=== PATIENT | female | born 1990 | race Hispanic/Latino ===

== ENCOUNTER 2016-12-10 15:51 | Emergency (ER) | payer OTHER ==
[~2016-12-10] VITALS: Ht 162.6 cm; Wt 71.2 kg
[~2016-12-10 15:51] MED LIST: CEFP250T2 PO; CEPH-507 PO; DOCU100C37 PO; FAMO20TA5 PO; FERR-74 PO; HYDR-3812 PO; IBUP-1773 PO; ONDA-42 SL; PREN-93 PO
--- OUTSIDE RECORDS SUMMARY | 2016-12-10 15:58 | XMS REPORT | Continuity of Care Document ---
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 Name Role Phone ROXANE LICEA APRN PCP Insurance Providers Payer Name Policy Number Subscriber Name Relationship Self Pay Bob Coughlin 18 Self / Same As Patient Advance Directives Directive Response Recorded Date/Time Advance Directives No 02/20/15 2:24am Resuscitation Status Full Code 02/20/15 2:24am Problems Medical Problems Problem Onset Date Status Urinary tract infection Unknown Active Unknown Active Nausea and vomiting Unknown Active Vomiting Unknown Active Medications Medication Dose Route Sig Days/Qty Instructions Order Date Discontinued Date Status Ondansetron Hcl 4 Mg SL EVERY 6 HOURS PRN NAUSEA/VOMITING 10 Qty FOR NAUSEA AND VOMITING 02/20/15 Active Famotidine (Pepcid) 1 Each PO TWICE A DAY PRN STOMACH UPSET 30 Qty Active Cefprozil 1 Tab PO TWICE A DAY 20 Qty 02/20/15 Active Social History Social History Problem Response Recorded Date/Time Alcohol Use Denies Use 02/20/2015 2:24am Recreational Drug Use No 02/20/2015 2:24am Recent Foreign Travel No 02/20/2015 2:09am Recent Infectious Disease Exposure No 02/20/2015 2:09am Smoking Status Never a Smoker 02/20/2015 2:24am Query Response Start Date Stop Date Smoking Status Never a Smoker Hospital Discharge Instructions No hospital discharge instructions. Plan of Care No plan of care. Functional Status No functional status results. Allergies, Adverse Reactions, Alerts Allergen Type Severity Reaction Status Last Updated No Known Drug Allergies Active 02/20/15 Immunizations No immunization records. Vital Signs Acute Vital Signs Vital Response Date/Time Temperature (Fahrenheit) 97.2 degrees F (97.6 - 99.5) Temperature (Calculated Celsius) 36.70796 degrees C (36.4 - 37.5) Temperature Source Temporal Pulse Rate (adult) 67 bpm (60 - 90) Respiratory Rate 18 bpm (12 - 24) O2 Sat by Pulse Oximetry 99 % (88 - 100) Blood Pressure 91/55 mm Hg Blood Pressure 96/68 mm Hg Blood Pressure 95/61 mm Hg Pain Pain Intensity 4 Height (Feet) 5 feet Height (Inches) 1 inches Height (Calculated Centimeters) 154.598440 cm Weight (Pounds) 136 pounds Weight (Calculated Kilograms) 61.578520 kilograms Calculated BMI 25.69 Results Laboratory Results Test Name Result Units Flags Reference Collection Date/Time Result Date/ Time Comments White Blood Count 6.6 10^3/uL 4.3-11.0 02/20/2015 2:02/20/2015 2: 53am Red Blood Count 3.72 10^6/uL L 4.35-5.85 02/20/2015 2:02/20/2015 2: 53am Hemoglobin 12.1 G/DL 11.5-16.0 02/20/2015 2:02/20/2015 2:53am Hematocrit 35 % 35-52 02/20/2015 2:02/20/2015 2:53am Mean Corpuscular Volume 95 FL 80-99 02/20/2015 2:02/20/2015 2: 53am Mean Corpuscular Hemoglobin 33 PG 25-34 02/20/2015 2:02/20/2015 2: 53am Mean Corpuscular Hemoglobin Concent 34 G/DL 32-36 02/20/2015 2: 2:53am Red Cell Distribution Width 13.4 % 10.0-14.5 02/20/2015 2:2014 2:53am Platelet Count 100 10^3/uL L 130-400 02/20/2015 2:02/20/2015 2:53am Mean Platelet Volume 13.4 FL H 7.4-10.4 02/20/2015 2:02/20/2015 2: 53am Neutrophils (%) (Auto) 71 % 42-75 02/20/2015 2:02/20/2015 2:53am Lymphocytes (%) (Auto) 16 % 12-44 02/20/2015 2:02/20/2015 2:53am Monocytes (%) (Auto) 8 % 0-12 02/20/2015 2:02/20/2015 2:53am Eosinophils (%) (Auto) 5 % 0-10 02/20/2015 2:02/20/2015 2:53am Basophils (%) (Auto) 1 % 0-10 02/20/2015 2:02/20/2015 2:53am Neutrophils # (Auto) 4.7 X 10^3 1.8-7.8 02/20/2015 2:02/20/2015 2: 53am Lymphocytes # (Auto) 1.1 X 10^3 1.0-4.0 02/20/2015 2:02/20/2015 2: 53am Monocytes # (Auto) 0.5 X 10^3 0.0-1.0 02/20/2015 2:02/20/2015 2: 53am Eosinophils # (Auto) 0.4 10^3/uL H 0.0-0.3 02/20/2015 2:02/20/2015 2 :53am Basophils # (Auto) 0.0 10^3/uL 0.0-0.1 02/20/2015 2:02/20/2015 2: 53am Urine Color JACKIE * 02/20/2015 2:02/20/2015 2:59am Urine Clarity VERY CLOUDY * 02/20/2015 2:02/20/2015 2:59am Urine pH 6 5-9 02/20/2015 2:02/20/2015 2:59am Urine Specific [place] 1.025 * 1.016-1.022 02/20/2015 2:2014 2:59am Urine Protein 3+ * NEGATIVE 02/20/2015 2:02/20/2015 2:59am Urine Glucose (UA) NEGATIVE NEGATIVE 02/20/2015 2:02/20/2015 2: 59am Urine RBC (Auto) 2+ * NEGATIVE 02/20/2015 2:02/20/2015 2:59am Urine Ketones 1+ * NEGATIVE 02/20/2015 2:02/20/2015 2:59am Urine Nitrite POSITIVE * NEGATIVE 02/20/2015 2:02/20/2015 2:59am Urine Bilirubin 2+ * NEGATIVE 02/20/2015 2:02/20/2015 2:59am Urine Urobilinogen 8 MG/DL * NORMAL 02/20/2015 2:02/20/2015 2:59am Urine Leukocyte Esterase 3+ * NEGATIVE 02/20/2015 2:02/20/2015 2: 59am Urine RBC 5-10 /HPF * 02/20/2015 2:02/20/2015 2:59am Urine WBC 10-25 /HPF * 02/20/2015 2:02/20/2015 2:59am Urine Bacteria MODERATE /HPF * 02/20/2015 2:02/20/2015 2:59am Urine Squamous Epithelial Cells 10-25 /HPF * 02/20/2015 2:2014 2:59am Urine Crystals NONE /LPF 02/20/2015 2:02/20/2015 2:59am Urine Casts NONE /LPF 02/20/2015 2:02/20/2015 2:59am Urine Mucus NEGATIVE /LPF 02/20/2015 2:02/20/2015 2:59am Urine Culture Indicated YES 02/20/2015 2:02/20/2015 2:59am Sodium Level 137 MMOL/L 135-145 02/20/2015 2:02/20/2015 3:06am Potassium Level 3.4 MMOL/L L 3.6-5.0 02/20/2015 2:02/20/2015 3:06am Chloride Level 106 MMOL/L 98-107 02/20/2015 2:02/20/2015 3:06am Carbon Dioxide Level 21 MMOL/L 21-32 02/20/2015 2:02/20/2015 3: 06am Blood Urea Nitrogen 8 MG/DL 7-18 02/20/2015 2:02/20/2015 3:06am Creatinine 0.62 MG/DL 0.60-1.30 02/20/2015 2:02/20/2015 3:06am BUN/Creatinine Ratio 13 02/20/2015 2:02/20/2015 3:06am Estimat Glomerular Filtration Rate > 60 02/20/2015 2:2014 3:06am GFR INTERPRETIVE DATA UNITS FOR ESTIMATED GFR (eGFR): mL/min/1.73 M2 REFERENCE RANGE FOR ESTIMATED GFR (eGFR) eGFR NORMAL eGFR >60 MODERATELY DECREASED eGFR 30-59 SEVERLY DECREASED eGFR 15-29 KIDNEY FAILURE <15 (OR DIALYSIS) Glucose Level 96 MG/DL 70-105 02/20/2015 2:02/20/2015 3:06am Calcium Level 9.3 MG/DL 8.5-10.1 02/20/2015 2:02/20/2015 3:06am Total Bilirubin 0.4 MG/DL 0.1-1.0 02/20/2015 2:02/20/2015 3:06am Alkaline Phosphatase 57 U/L 40-136 02/20/2015 2:02/20/2015 3:06am Aspartate Amino Transf (AST/SGOT) 17 U/L 5-34 02/20/2015 2:2014 3:06am Alanine Aminotransferase (ALT/SGPT) 10 U/L 0-55 02/20/2015 2:02/20 3:06am Total Protein 7.4 G/DL 6.4-8.2 02/20/2015 2:02/20/2015 3:06am Albumin 3.7 G/DL 3.2-4.5 02/20/2015 2:02/20/2015 3:06am Procedures No known history of procedures. Encounters Encounter Location Date/Time Departed Emergency Room Via [facility] 02/20/15 1:52am Recent Diagnosis
[2016-12-10] MEDS ORDERED: NS IV 1000 ML 1,000 ML IV ONE (16:09)
[2016-12-10] MEDS ORDERED: KETOROLAC 30 MG/ML VIAL IVP STA (16:25)
[2016-12-10 16:28] LABS: BASOPHILS % (AUTO) 0 % (0-10); EOSINOPHILS # (AUTO) 0.4 10^3/uL (0.0-0.3); EOSINOPHILS % (AUTO) 6 % (0-10); LYMPHOCYTES # (AUTO) 1.2 X 10^3 (1.0-4.0); LYMPHOCYTES % (AUTO) 18 % (12-44); MEAN CORPUSCULAR HEMOGLOBIN 30 PG (25-34); MEAN CORPUSCULAR HGB CONC 33 G/DL (32-36); MEAN CORPUSCULAR VOLUME 91 FL (80-99); MEAN PLATELET VOLUME 13.5 FL (7.4-10.4); MONOCYTES # (AUTO) 0.5 X 10^3 (0.0-1.0); MONOCYTES % (AUTO) 7 % (0-12); NEUTROPHILS # (AUTO) 4.3 X 10^3 (1.8-7.8); NEUTROPHILS % (AUTO) 68 % (42-75); PLATELET COUNT 91 10^3/uL (130-400); RED BLOOD COUNT 4.16 10^6/uL (4.35-5.85); RED CELL DISTRIBUTION WIDTH 14.6 % (10.0-14.5); WHITE BLOOD COUNT 6.4 10^3/uL (4.3-11.0)
--- NOTE | 2016-12-10 16:32 | ED General ---
General Chief Complaint: Abdominal/GI Problems Stated Complaint: C SECTION SITE PAIN, FEVER Nursing Triage Note: PT TO ED 6 W/ C/O PAIN AT INCISION SITE, 5 WKS POST OP C SECTION. ALSO C/O ELEVATED TEMP. NO OTHER C/O VOICED Nursing Sepsis Screen: No Definite Risk Source of Information: Patient Exam Limitations: Language Barrier History of Present Illness Time Seen by Provider: 16:15 Initial Comments Here with report of fever and lower abdominal pain as well as bilateral flank pain. This is been going on for a couple days but getting worse. She is 5 weeks postop . Complains of foul-smelling drainage from the right side of her site. Denies dysuria or problems with bowel movements. Has mild cough but no breathing problems. Timing/Duration: 1-2 Days Severity: Moderate Associated Systoms: Cough Fever/ChillsNo Nausea/Vomiting, No Shortness of Air , No Weakness Allergies and Home Medications Allergies Coded Allergies: No Known Drug Allergies (Unverified , 10/27/16) Constitutional: see HPI chills fever EENTM: no symptoms reported Respiratory: coughNo short of breath Cardiovascular: no symptoms reported Gastrointestinal: see HPI abdominal pain (RLQ)No nausea, No vomiting Musculoskeletal: no symptoms reported Skin: see HPI other ( incision with drainage) Psychiatric/Neurological: No Symptoms Reported All Other Systems Reviewed Negative Unless Noted: Yes Past Kjnjpvy-Ncaict-Xpomwm Hx Patient Social History Alcohol Use: Denies Use Recreational Drug Use: No Smoking Status: Never a Smoker Recent Foreign Travel: No Contact w/Someone Who Travel: No Recent Infectious Disease Expo: No Recent Hopitalizations: Yes (CSECTION X5 WKS AGO) Physical Abuse Screen: No Sexual Abuse: No Seasonal Allergies Seasonal Allergies: No Surgeries HX Surgeries: Yes Surgeries: Section Respiratory Hx Respiratory Disorders: No Cardiovascular Hx Cardiac Disorders: No Neurological Hx Neurological Disorders: No Reproductive System Hx Reproductive Disorders: No Sexually Transmitted Disease: No HIV/AIDS: No Genitourinary Hx Genitourinary Disorders: No Gastrointestinal Hx Gastrointestinal Disorders: No Musculoskeletal Hx Musculoskeletal Disorders: No Endocrine Hx Endocrine Disorders: No HEENT HX ENT Disorders: No Loss of Vision: Denies Hearing Impairment: Denies Cancer Hx Cancer: No Psychosocial Hx Psychiatric Problems: No Integumentary HX Skin/Integumentary Disorder: No Blood Transfusions Hx Blood Disorders: Yes (LOW PLATELETS) Adverse Reaction to a Blood Tr: No Reviewed Nursing Assessment Reviewed/Agree w Nursing PMH: Yes Family Medical History Significant Family History: No Pertinent Family Hx Family Medial History: Patient reports no known family medical history. Physical Exam-Suspected Sepsis Physical Exam Vital Signs Vital Sign - Last 12Hours 12/10/16 15:58 Temp 102.4 Pulse 88 Resp 20 B/P 120/72 Pulse Ox 99 O2 Delivery Room Air Capillary Refill : Less Than 3 Seconds Blood Pressure Mean: 88 General Appearance: No Apparent Distress WD/WN HEENT: PERRL/EOMI Pharynx Normal Neck: Non Tender Supple (well a she her total bili not sufficient and is) Respiratory: Lungs Clear Normal Breath Sounds Cardiovascular: Regular Rate, Rhythm No Murmur Gastrointestinal: Non Tender Soft Back: Normal Inspection No CVA Tenderness No Vertebral Tenderness Extremity: Normal Capillary Refill Normal Range of Motion Non Tender No Calf Tenderness Neurologic/Psychiatric: Alert Oriented x3 Skin: normal colorNo rash, other ( incision to the low abdomen has 1 cm area of slight dehiscence without significant drainage. No significant surrounding erythema. Mild tenderness to palpation around that site.) Progress/Results/Core Measures Suspected Sepsis Recent Fever Within 48 Hours: Yes Infection Criteria Present: None New/Unexplained Altered Menta: No Sepsis Screen: No Definite Risk Sepsis Diagnosis: SIRS Temperature:102.4 Pulse: 88 Respiratory Rate: 20 Laboratory Tests 12/10/16 16:16: White Blood Count 6.4 Blood Pressure 120 /72 Mean: 88 Laboratory Tests 12/10/16 16:16: Creatinine 0.70, INR Comment 1.1, Platelet Count 91L, Total Bilirubin 0.4 Results/Orders Lab Results Laboratory Tests Test 12/10/16 16:16 12/10/16 17:29 Range/Units Activated Partial Thromboplast Time 34 24-35 SEC Alanine Aminotransferase (ALT/SGPT) 38 0-55 U/L Albumin 4.1 3.2-4.5 G/DL Alkaline Phosphatase 104 40-136 U/L Anion Gap 11 5-14 MMOL/L Aspartate Amino Transf (AST/SGOT) 39 H 5-34 U/L BUN/Creatinine Ratio 17 Basophils # (Auto) 0.0 0.0-0.1 10^3/uL Basophils (%) (Auto) 0 0-10 % Blood Urea Nitrogen 12 7-18 MG/DL Calcium Level 8.4 L 8.5-10.1 MG/DL Carbon Dioxide Level 21 21-32 MMOL/L Chloride Level 106 98-107 MMOL/L Creatinine 0.70 0.60-1.30 MG/DL Eosinophils # (Auto) 0.4 H 0.0-0.3 10^3/uL Eosinophils (%) (Auto) 6 0-10 % Estimat Glomerular Filtration Rate > 60 Glucose Level 99 70-105 MG/DL Hematocrit 38 35-52 % Hemoglobin 12.3 11.5-16.0 G/DL INR Comment 1.1 0.8-1.4 Lactic Acid Level 1.0 0.5-2.0 MMOL/L Lymphocytes # (Auto) 1.2 1.0-4.0 X 10^3 Lymphocytes (%) (Auto) 18 12-44 % Mean Corpuscular Hemoglobin 30 25-34 PG Mean Corpuscular Hemoglobin Concent 33 32-36 G/DL Mean Corpuscular Volume 91 80-99 FL Mean Platelet Volume 13.5 H 7.4-10.4 FL Monocytes # (Auto) 0.5 0.0-1.0 X 10^3 Monocytes (%) (Auto) 7 0-12 % Neutrophils # (Auto) 4.3 1.8-7.8 X 10^3 Neutrophils (%) (Auto) 68 42-75 % Platelet Count 91 L 130-400 10^3/uL Potassium Level 3.5 L 3.6-5.0 MMOL/L Prothrombin Time 13.8 12.2-14.7 SEC Red Blood Count 4.16 L 4.35-5.85 10^6/uL Red Cell Distribution Width 14.6 H 10.0-14.5 % Sodium Level 138 135-145 MMOL/L Total Bilirubin 0.4 0.1-1.0 MG/DL Total Protein 7.1 6.4-8.2 G/DL White Blood Count 6.4 4.3-11.0 10^3/uL Urine Bacteria NONE /HPF Urine Bilirubin NEGATIVE NEGATIVE Urine Casts NONE /LPF Urine Clarity SLIGHTLY CLOUDY Urine Color YELLOW Urine Crystals NONE /LPF Urine Culture Indicated NO Urine Glucose (UA) NEGATIVE NEGATIVE Urine Ketones NEGATIVE NEGATIVE Urine Leukocyte Esterase 1+ H NEGATIVE Urine Mucus NEGATIVE /LPF Urine Nitrite NEGATIVE NEGATIVE Urine Protein NEGATIVE NEGATIVE Urine RBC RARE /HPF Urine RBC (Auto) NEGATIVE NEGATIVE Urine Specific [place] 1.010 L 1.016-1.022 Urine Squamous Epithelial Cells 2-5 /HPF Urine Urobilinogen NORMAL NORMAL MG/DL Urine WBC 2-5 /HPF Urine pH 6 5-9 Micro Results Microbiology 12/10/16 Influenza Types A,B Antigen (JOSIE) - Final, Complete My Orders Orders-STEWART LANEIR MD Cbc With Automated Diff (12/10/16 16:09) Comprehensive Metabolic Panel (12/10/16 16:09) Lactic Acid Analyzer (12/10/16 16:09) Blood Culture (12/10/16 16:09) Sputum Culture (12/10/16 16:09) Ua Culture If Indicated (12/10/16 16:09) Protime With Inr (12/10/16 16:09) Partial Thromboplastin Time (12/10/16 16:09) Saline Lock/Iv-Start (12/10/16 16:09) Vital Signs Adult Sepsis Patie Q1HR (12/10/16 16:09) Ns Iv 1000 Ml (Sodium Chloride 0.9%) (12/10/16 16:09) Ct Abd/Pelv W (Appendicitis) (12/10/16 16:25) Chest Pa/Lat (2 View) (12/10/16 16:25) Ketorolac Injection (Toradol Injection) (12/10/16 16:25) Iohexol Injection (Omnipaque 350 Mg/Ml 1 (12/10/16 16:45) Ns (Ivpb) (Sodium Chloride 0.9% Ivpb Bag (12/10/16 16:45) Sodium Chloride Flush (Catheter Flush Sy (12/10/16 16:45) Influenza A And B Antigens (12/10/16 17:17) Wound Culture (12/10/16 18:12) Ceftriaxone Injection (Rocephin Injectio (12/10/16 18:45) Ceftriaxone Injection (Rocephin Injectio (12/10/16 18:27) Normal Saline (Figueroa Mini) (Ns (Figueroa (12/10/16 18:27) Medications Given in ED Current Medications Medications Dose Ordered Sig/Chaya Route Start Time Stop Time Status Last Admin Dose Admin Ceftriaxone Sodium/Sodium Chloride 50 ml @ 100 mls/hr ONCE ONCE IV 12/10/16 18:45 12/10/16 19:14 12/10/16 18:36 100 MLS/HR Iohexol 100 ml ONCE ONCE IV 12/10/16 16:45 12/10/16 16:46 DC 12/10/16 16:51 100 ML Sodium Chloride 1,000 ml @ 0 mls/hr Q0M ONCE IV 12/10/16 16:09 12/10/16 16:12 DC 12/10/16 16:36 1,000 MLS/HR Sodium Chloride 100 ml 100 ml ONCE ONCE IV 12/10/16 16:45 12/10/16 16:46 DC 12/10/16 16:51 80 ML Vital Signs/I&O Vital Sign - Last 12Hours 12/10/16 15:58 Temp 102.4 Pulse 88 Resp 20 B/P 120/72 Pulse Ox 99 O2 Delivery Room Air Capillary Refill : Less Than 3 Seconds Blood Pressure Mean: 88 Progress Note : Progress Note Seen and evaluated. IV, labs, UA, chest x-ray, CT abdomen and pelvis ordered. Toradol 30 mg IV. Monitor patient. Normal saline 1 L bolus. Improved after Toradol. All labs reviewed as well as CT results. No significant findings or indications of significant infection. No abdominal abscess or concerns for appendicitis. I did discuss the case with Dr. Bar, on-call for OB as patient had by Dr. Barrios. We did culture the wound although it is minimally open. She is recommending oral antibiotics and follow-up with Dr. Barrios earlier this week as well as continue follow-up at [facility] at the 6 week eamon. We will give Rocephin 1 g IV here and continue outpatient therapy with Keflex. All findings and concerns were discussed with the patient. Discharged home with return precautions. Patient verbalize understanding instructions and agreement with plan. Diagnostic Imaging Diagonstic Imaging: Xray Plain Films/CT/US/NM/MRI: chest Comments VIA [facility]. [place], [place] NAME: [facility] REC#: [id number] PT STATUS: REG ER : 1990 PHYSICIAN: STEWART LANIER MD ADMIT DATE: 12/10/16/ER Signed Date of Exam:12/10/16 CHEST PA/LAT (2 VIEW) INDICATION: Abdominal pain. Back pain. Had baby one month ago. FINDINGS: Examination of the chest in the PA and lateral projections fails to reveal evidence of active parenchymal pathology or pleural effusion. The cardiac silhouette is normal. No bony abnormalities are demonstrated. No pneumothorax. IMPRESSION: Negative chest. Dictated by: Dictated on workstation # [id number] Dict: 12/10/16 1657 Trans: 12/10/16 1709 [id number] Interpreted by: EDWIN RUIZ MD Electronically signed by: EDWIN RUIZ MD 12/10/16 5285 Diagonstic Imaging: CT Plain Films/CT/US/NM/MRI: abdomen, pelvis Comments VIA [facility]. [place], [place] NAME: [facility] REC#: [id number] PT STATUS: REG ER : 1990 PHYSICIAN: STEWART LANIER MD ADMIT DATE: 12/10/16/ER Signed Date of Exam:12/10/16 CT ABD/PELV W (APPENDICITIS) PROCEDURE: CT abdomen and pelvis with contrast, rule out appendicitis. TECHNIQUE: Multiple contiguous axial images were obtained through the abdomen and pelvis after the administration of intravenous contrast. INDICATION: one month ago. Patient states the draining with odor along the incision site. FINDINGS: Lung bases are clear. Liver appears normal. Gallbladder is contracted. Bile ducts are not dilated. Pancreas and spleen are normal. Adrenal glands and kidneys appear normal. The abdominal vessels enhance in a normal fashion and appear normal. The abdominal organs show normal enhancement. Stomach and small bowel show normal pattern. Colon shows normal stool and gas pattern. Uterus is mildly enlarged consistent with recent . Low transverse Pfannenstiel incision scar is noted. No evidence of seromas or hematomas. No loculated fluid collection seen in the abdomen or in the subcutaneous tissues to suggest abscess. No adenopathy of pathologic size. The rectus muscle appears intact with no defect. IMPRESSION: 1. Low transverse pelvic incision noted scar present though no fluid collections. Rectus muscle intact. 2. No intra-abdominal fluid collection. No adenopathy is present. Dictated by: Dictated on workstation # [id number] Dict: 12/10/16 172 Trans: 12/10/[address] [facility] [id number] Interpreted by: EDWIN RUIZ MD Electronically signed by: EDWIN RUIZ MD 12/10/16 174 Departure Impression Impression: Primary Impression: Fever Qualified Code: R50.9 - Fever, unspecified Additional Impression: Postoperative pain Disposition: HOME, SELF-CARE Condition: Improved Departure-Patient Inst. Decision time for Depature: 18:42 Referrals: ISSA HOLLINS MD (PCP/Family) Primary Care Physician Patient Instructions: Fever, Adult (DC), Postoperative Pain (DC) Add. Discharge Instructions: All discharge instructions reviewed with patient and/or family. Voiced understanding. Take medications as directed. Drink plenty of fluids. Follow-up with Dr. Barrios this week. Call his office Monday morning for appointment this week. Also follow-up with [facility] for your six-week checkup. Return for worse pain, fever, vomiting, weakness, vaginal bleeding or discharge, breathing problems or other concerns as needed. Scripts Cephalexin 500 Mg [id number] Mg PO QID #28 TAB Ref 0 Prov:STEWART LANIER MD 12/10/16 Copy Copies To 1: EMMANUEL BARRIOS DO Copies To 2: ISSA HOLLINS MD, TIMOTHY D MD Dec 10, 2016 16:32
[2016-12-10 16:35] LABS: INR 1.1 (0.8-1.4); PROTHROMBIN TIME PATIENT 13.8 SEC (12.2-14.7)
[2016-12-10 16:45] LABS: ALANINE AMINOTRANSFERASE 38 U/L (0-55); ALBUMIN 4.1 G/DL (3.2-4.5); ANION GAP 11 MMOL/L (5-14); ASPARTATE AMINO TRANSFERASE 39 U/L (5-34); BILIRUBIN,TOTAL 0.4 MG/DL (0.1-1.0); BLOOD UREA NITROGEN 12 MG/DL (7-18); BUN/CREATININE RATIO 17; CALCIUM 8.4 MG/DL (8.5-10.1); CARBON DIOXIDE 21 MMOL/L (21-32); CHLORIDE 106 MMOL/L (98-107); GFR ESTIMATED > 60; GLUCOSE 99 MG/DL (70-105); POTASSIUM 3.5 MMOL/L (3.6-5.0); SODIUM 138 MMOL/L (135-145); TOTAL PROTEIN 7.1 G/DL (6.4-8.2)
[2016-12-10] MEDS ORDERED: CATHETER FLUSH 10 ML SYR IV PRN (16:45)
[2016-12-10] MEDS ORDERED: IOHEXOL 350 MG/ML 100 ML (OMNIPAQUE 350) VIAL IV ONE (16:45)
[2016-12-10] MEDS ORDERED: NS 100 ML (IVPB) BAG IV ONE (16:45)
--- NOTE | 2016-12-10 17:04 | Diagnostic Imaging Report ---
INDICATION: Abdominal pain. Back pain. Had baby one month ago. FINDINGS: Examination of the chest in the PA and lateral projections fails to reveal evidence of active parenchymal pathology or pleural effusion. The cardiac silhouette is normal. No bony abnormalities are demonstrated. No pneumothorax. IMPRESSION: Negative chest. Dictated by: Dictated on workstation # [id number]
[2016-12-10 17:38] LABS: BILIRUBIN,URINE NEGATIVE (NEGATIVE); KETONES,URINE NEGATIVE (NEGATIVE); LEUKOCYTE ESTERASE ,URINE 1+ (NEGATIVE); NITRITE,URINE NEGATIVE (NEGATIVE); PH,URINE 6 (5-9); PROTEIN,URINE NEGATIVE (NEGATIVE); UROBILINOGEN,URINE NORMAL (NORMAL)
--- NOTE | 2016-12-10 17:44 | Diagnostic Imaging Report ---
PROCEDURE: CT abdomen and pelvis with contrast, rule out appendicitis. TECHNIQUE: Multiple contiguous axial images were obtained through the abdomen and pelvis after the administration of intravenous contrast. INDICATION: one month ago. Patient states the draining with odor along the incision site. FINDINGS: Lung bases are clear. Liver appears normal. Gallbladder is contracted. Bile ducts are not dilated. Pancreas and spleen are normal. Adrenal glands and kidneys appear normal. The abdominal vessels enhance in a normal fashion and appear normal. The abdominal organs show normal enhancement. Stomach and small bowel show normal pattern. Colon shows normal stool and gas pattern. Uterus is mildly enlarged consistent with recent . Low transverse Pfannenstiel incision scar is noted. No evidence of seromas or hematomas. No loculated fluid collection seen in the abdomen or in the subcutaneous tissues to suggest abscess. No adenopathy of pathologic size. The rectus muscle appears intact with no defect. IMPRESSION: 1. Low transverse pelvic incision noted scar present though no fluid collections. Rectus muscle intact. 2. No intra-abdominal fluid collection. No adenopathy is present. Dictated by: Dictated on workstation # [id number]
[2016-12-10] MEDS ORDERED: cefTRIAXone 1 GM (ROCEPHIN) VIAL ONE (18:27)
[2016-12-10] MEDS ORDERED: NORMAL SALINE (BAXTER MINI) 50 ML IV ONE (18:27)
[2016-12-10] MEDS ORDERED: CEPH500T PO (18:45)
[2016-12-10] MEDS ORDERED: cefTRIAXone INJECTION 1,000 MG in NORMAL SALINE (BAXTER MINI) 50 ML IV ONE (18:45)
[2016-12-10 19:15] VITALS: BP 109/68
== END 2016-12-10 19:15 | disposition home or self-care (01) ==
LOC: EDUNIT# 15:51 → ER 15:54
DX: G89.18 Other acute postprocedural pain (principal); R50.9 Fever, unspecified
CPT/HCPCS: 36415; 71020; 74177; 80053; 81000; 83605; 85025; 85610; 85730; 87040; 87070; 87077; 87186; 87205; 87804; 96365; 96375

== ENCOUNTER 2017-10-21 22:17 | Emergency (ER) | payer SELFPAY ==
[~2017-10-21] VITALS: Ht 162.6 cm; Wt 71.2 kg
[~2017-10-21 22:17] MED LIST changes: +CEPH500T PO
[2017-10-21] MEDS ORDERED: cefTRIAXone 1 GM (ROCEPHIN) VIAL ONE (23:47)
[2017-10-21] MEDS ORDERED: KETOROLAC 60 MG/2 ML VIAL IM ONE (23:47)
[2017-10-21] MEDS ORDERED: LIDOCAINE 1% INJ 20 ML (XYLOCAINE) VIAL ONE (23:47)
--- NOTE | 2017-10-21 23:47 | ED Headache ---
General Chief Complaint: Head/Cervical Problems Stated Complaint: HEADACHE Nursing Triage Note: C/O lam for the last 2-3 weeks, cont the last week. Has had fluid in ears, no fever. Nauseated, and tylenol and advil are not working. clear drainage with occ. blood clot . 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 Exam Limitations: language barrier (PT SPEAKS NO NAURUAN) History of Present Illness Time seen by provider: 22:34 Initial Comments C/O HEADACHE FOR A MONTH PAIN IS THERE NEARLY ALL THE TIME HEADACHE IS MOSTLY IN FOREHEAD AREA OCCASIONAL CLEAR NASAL DRAINAGE AND HAD A SMALL BLOOD CLOT FROM NOSE ONCE --A WEEK OR TWO AGO NO FEVER ALSO STATES SHE HAS A "BALL" ON THE ROOF OF HER MOUTH AND IF SHE PUSHES ON IT, IT CAUSES SEVERE PAIN IN HER HEAD PT ALSO STATES SHE DEVELOPED A "STAIN" ON HER LEFT FOREHEAD THE SAME TIME HER HEADACHE STARTED AND IT IS TENDER TO TOUCH HAS NOT SOUGHT CARE UNTIL TODAY SYMPTOMS NO DIFFERENT TODAY NO RELIEF WITH TYLENOL AND IBUPROFEN [facility] Allergies and Home Medications Allergies Coded Allergies: No Known Drug Allergies (Unverified , 10/27/16) Home Medications Amoxicillin/Potassium Clav 1 Each Tablet, 1 EACH PO BID, #30 Prescribed by: MULU CHAVEZ on 10/21/172349 Fluticasone Propionate 9.9 Ml [place].susp, 2 SPRAYS NS BID, #1 Prescribed by: MULU CHAVEZ on 10/21/172349 Loratadine/Pseudoephedrine 1 Each Tab.er.12h, 1 EACH PO BID, #30 Prescribed by: MULU CHAVEZ on 10/21/17 235 Methylprednisolone 4 Mg Tab.ds.pk, 4 MG PO UD, #1 Prescribed by: MULU CHAVEZ on 10/21/170 Constitutional: no symptoms reported Eyes: No Symptoms Reported Ears, Nose, Mouth, Throat: see HPI Respiratory: no symptoms reported Cardiovascular: no symptoms reported Gastrointestinal: no symptoms reported Genitourinary: no symptoms reported : No LMP: Oct 13, 2017 (NORMAL. NO CONTROL) Musculoskeletal: no symptoms reported Skin: see HPI Psychiatric/Neurological: See HPI, Headache, Denies Numbness, Denies Paresthesia, Denies Seizure, Denies Tingling, Denies Tremors, Denies Weakness Past Vuqaaly-Xzohpb-Perrhs Hx Patient Social History Alcohol Use: Denies Use Recreational Drug Use: No Smoking Status: Never a Smoker Recent Foreign Travel: No Contact w/Someone Who Travel: No Recent Infectious Disease Expo: No Recent Hopitalizations: No Physical Abuse: No Sexual Abuse: No Mistreated: No Fear: No Immunizations Up To Date Tetanus Booster (TDap): Unknown Seasonal Allergies Seasonal Allergies: No Surgeries History of Surgeries: Yes ( X 3) Surgeries: Section Respiratory History of Respiratory Disorde: No Cardiovascular History of Cardiac Disorders: No Neurological History of Neurological Disord: No Reproductive System Hx Reproductive Disorders: No Sexually Transmitted Disease: No HIV/AIDS: No Gastrointestinal History of Gastrointestinal Di: No Musculoskeletal History of Musculoskeletal Dis: No Endocrine History of Endocrine Disorders: No HEENT History of HEENT Disorders: No Loss of Vision: Denies Hearing Impairment: Denies Cancer History of Cancer: No Psychosocial History of Psychiatric Problem: No Suicide Risk Score: 0 Integumentary History of Skin or Integumenta: No Blood Transfusions History of Blood Disorders: Yes (LOW PLATELETS) Adverse Reaction to a Blood Tr: No Family Medical History Significant Family History: No Pertinent Family Hx Family Medial History: Patient reports no known family medical history. Physical Exam Vital Signs Vital Sign - Last 12Hours 10/21/17 22:30 Temp 97.6 Pulse 62 Resp 18 B/P (MAP) 117/77 Pulse Ox 100 Capillary Refill : Less Than 3 Seconds General Appearance: WD/WN, no apparent distress HEENT: PERRL/EOMI, other (TENDERNESS TO FRONTAL AREA, AND TENDERNESS OVER LEFT FOREHEAD AND OVER WHAT APPEARS TO BE A BIRTHMARK TO LEFT FOREHEAD FROM LEFT MEDIAL BROW TO HAIRLINE. HARD PALATE WITH A MIDLINE SOFT TISSUE MASS-- APPROXIMATELY 1 CM IN DIAMETER, LIGHT YELLOW IN COLOR, TENDER TO PALPATION. ) Neck: non-tender, full range of motion, supple, normal inspection Cardiovascular: regular rate, rhythm, no murmur Respiratory: normal breath sounds, no respiratory distress, no accessory muscle use Gastrointestinal: normal bowel sounds, non tender, soft Back: normal inspection Extremities: normal range of motion, non-tender, normal inspection, no pedal edema, no calf tenderness, normal capillary refill Psychiatric: alert, oriented x 3 Crainal Nerves: normal hearing, normal speech, PERRL Coordination/Gait: normal gait Motor/Sensory: no motor deficit, no sensory deficit, no pronator drift Skin: normal color, warm/dry Progress/Results/Core Measures Results/Orders My Orders Orders - MULU CHAVEZ DO Ct Head/Maxillofacial Wo (10/21/17 22:43) Ketorolac Injection (Toradol Injection) (10/21/17 23:48) Lidocaine 1% Injection (Xylocaine 1% Inj (10/22/17 00:00) Ceftriaxone Injection (Rocephin Injectio (10/22/17 00:00) Ketorolac Injection (Toradol Injection) (10/21/17 23:47) Ceftriaxone Injection (Rocephin Injectio (10/21/17 23:47) Lidocaine 1% Injection (Xylocaine 1% Inj (10/21/17 23:47) Medications Given in ED Current Medications Medications Dose Ordered Sig/Chaya Route Start Time Stop Time Status Last Admin Dose Admin Ceftriaxone Sodium 1,000 mg ONCE ONCE IM 10/22/17 00:00 10/22/17 00:04 DC 10/21/17 23:59 1,000 MG Lidocaine HCl 2.1 ml ONCE ONCE INJ 10/22/17 00:00 10/22/17 00:04 DC 10/21/17 23:58 2.1 ML Vital Signs/I&O Vital Sign - Last 12Hours 10/21/17 10/22/17 22:30 00:03 Temp 97.6 98.6 Pulse 62 72 Resp 18 18 B/P (MAP) 117/77 Pulse Ox 100 99 Blood Pressure Mean: [address] HEAD/MAXILLOFACIALS--MAXILLARY SINUSITIS, WORSE ON RIGHT--PER [facility] VIA FAX @ 2113 Reviewed: Reviewed by Me Departure Impression Impression: Primary Impression: Sinusitis Additional Impression: Sinus headache Disposition: HOME, SELF-CARE Condition: Stable Departure-Patient Inst. Referrals: [facility] (PCP/Family) Primary Care Physician Patient Instructions: Sinusitis, Adult (DC), Sinus Headache (DC) Add. Discharge Instructions: LOTS OF CLEAR LIQUIDS TYLENOL NEEDED FOR PAIN FOLLOW UP WITH [facility] IN 1 WEEK IF NO BETTER All discharge instructions reviewed with patient and/or family. Voiced understanding. Scripts Methylprednisolone (Medrol) 4 Mg Tab.ds.pk 4 MG PO UD, #1 PKG Prov: MULU CHAVEZ DO 10/21/17 Fluticasone Propionate (Flonase Allergy Relief) 9.9 Ml [place].susp 2 SPRAYS NS BID, #1 SPRAY Prov: MULU CHAVEZ DO 10/21/17 Loratadine/Pseudoephedrine (Claritin-D 12 Hour Tablet) 1 Each Tab.er.12h 1 EACH PO BID for Congestion, #30 TAB Prov: MULU CHAVEZ DO 10/21/17 Amoxicillin/Potassium Clav (Augmentin 875-125 Tablet) 1 Each Tablet 1 EACH PO BID for INFECTION, #30 TAB Prov: MULU CHAVEZ DO 10/21/17 MULU CHAVEZ DO Oct 21, 2017 23:47
[2017-10-21] MEDS ORDERED: KETOROLAC 60 MG/2 ML VIAL IM STA (23:48)
[2017-10-21] MEDS ORDERED: FLUT9.9S NS (23:50)
[2017-10-21] MEDS ORDERED: LORA1TAB59 PO (23:50)
[2017-10-21] MEDS ORDERED: AMOX-358 PO (23:50)
[2017-10-21] MEDS ORDERED: METH4TAB PO (23:50)
[2017-10-22] MEDS ORDERED: LIDOCAINE 1% INJ 20 ML (XYLOCAINE) VIAL INJ ONE
[2017-10-22] MEDS ORDERED: cefTRIAXone 1 GM (ROCEPHIN) VIAL IM ONE
[2017-10-22 00:03] VITALS: BP 115/62
--- NOTE | 2017-10-22 06:37 | Diagnostic Imaging Report ---
PROCEDURE: CT head and maxillofacial without contrast. TECHNIQUE: Multiple contiguous axial images were obtained through the head and facial bones without the use of intravenous contrast. INDICATION: Headache. COMPARISON: None FINDINGS: No acute intracranial hemorrhage, mass effect or edema is seen. Rondon-white junction is preserved. Ventricles appear normal. No focal abnormality is demonstrated. Maxillofacial CT: There is evqp-nd-pewdwttm mucosal thickening in the maxillary sinuses bilaterally slightly more prominent on the right. No air-fluid levels are seen. Ethmoid, frontal and sphenoid sinuses appear clear. No osseous destructive process or fracture is seen. Nasal septum appears midline. There is some congestion of the ostiomeatal units which appear patent. IMPRESSION: 1. Thee-hl-vbczoktn bilateral maxillary sinusitis, worse on the right. No air-fluid levels are seen. 2. No evidence of an acute intracranial abnormality. Agree with [facility] interpretation. Dictated by: Dictated on workstation # [id number]
== END 2017-10-22 00:04 | disposition home or self-care (01) ==
LOC: EDUNIT# 22:17 → ER 22:20
DX: J32.9 Chronic sinusitis, unspecified (principal); R51 Headache; Z87.59 Personal history of other complications of pregnancy, childbirth and the puerperium
CPT/HCPCS: 70450; 70486; 99284

== ENCOUNTER → 2019-01-18 | Outpatient (CLI) | payer OTHER ==
[~2019-01-18] MED LIST changes: +ACHD5005 PO; +AMOX-358 PO; -FERR-74 PO; +FERR325T18 PO; +FLUT9.9S NS; -HYDR-3812 PO; +LORA1TAB59 PO; +METH4TAB PO
--- NOTE | 2019-01-18 12:55 | Diagnostic Imaging Report ---
PROCEDURE: US Non-ob pelvis comp/trans. TECHNIQUE: Multiple realtime grayscale images were obtained of the pelvis in various projections endovaginally. Transabdominal imaging was also performed. INDICATION: Acute pelvic pain. The uterus measures 8.2 x 5.5 x 5.0 cm. Endometrium is approximately 10 mm in thickness. No myometrial mass is identified. The right ovary was not visualized due to overlying bowel gas. Left ovary measures 2.6 x 2.9 x 2.8 cm. Left ovary contains multiple follicles. There is a complex cyst with septations in the left ovary measuring approximately 19 mm. There is blood flow to the left ovary. No free fluid is seen. IMPRESSION: Complex left ovarian cyst. No other significant abnormality is detected. Note is made that the right ovary cannot be visualized due to bowel gas. Dictated by: Dictated on workstation # [id number]
== END ==
LOC: RAD 10:24
PROVIDERS: ATTEND Obstetrics & Gynecology
DX: N83.292 Other ovarian cyst, left side (principal)
CPT/HCPCS: 76830; 76856

== ENCOUNTER 2019-01-29 05:50 | Outpatient (CLI) | payer OTHER ==
[~2019-01-29] VITALS: Ht 162.6 cm; Wt 71.2 kg
== END 2019-01-29 15:22 | disposition home or self-care (01) ==
LOC: PREOP 05:50
PROVIDERS: ATTEND Obstetrics & Gynecology
DX: Z01.818 Encounter for other preprocedural examination (principal)

== ENCOUNTER 2019-01-31 08:55 | Day surgery (SDC) | payer OTHER ==
[~2019-01-31] VITALS: Ht 162.6 cm; Wt 71.2 kg
[2019-01-31] MEDS ORDERED: ceFAZolin INJECTION 1,000 MG in WATER (STERILE) FOR INJECTION 10 ML IV ONE (09:15)
[2019-01-31] MEDS: LACTATED RINGERS 1,000 ML IV PRN ×2 (09:30→12:48)
[2019-01-31 09:31] VITALS: BP 99/72
[2019-01-31 09:50] LABS: BASOPHILS % (AUTO) 1 % (0-10); EOSINOPHILS # (AUTO) 0.8 10^3/uL (0.0-0.3); EOSINOPHILS % (AUTO) 12 % (0-10); HEMATOCRIT 41 % (35-52); HEMOGLOBIN 13.5 G/DL (11.5-16.0); LYMPHOCYTES # (AUTO) 1.7 X 10^3 (1.0-4.0); LYMPHOCYTES % (AUTO) 26 % (12-44); MEAN CORPUSCULAR HEMOGLOBIN 31 PG (25-34); MEAN CORPUSCULAR HGB CONC 33 G/DL (32-36); MEAN CORPUSCULAR VOLUME 93 FL (80-99); MEAN PLATELET VOLUME 12.3 FL (7.4-10.4); MONOCYTES # (AUTO) 0.4 X 10^3 (0.0-1.0); MONOCYTES % (AUTO) 5 % (0-12); NEUTROPHILS # (AUTO) 3.7 X 10^3 (1.8-7.8); NEUTROPHILS % (AUTO) 56 % (42-75); PLATELET COUNT 171 10^3/uL (130-400); RED CELL DISTRIBUTION WIDTH 13.3 % (10.0-14.5); WHITE BLOOD COUNT 6.6 10^3/uL (4.3-11.0)
[2019-01-31] MEDS ORDERED: D5 LR IV SOLUTION 1,000 ML IV SCH (10:06)
--- NOTE | 2019-01-31 10:09 | Discharge Inst-Women's Service ---
Discharge Inst-Women's Serv Depart Medication/Instructions New, Converted or Re-Newed RX: RX Given to Pt/Family Consults/Follow Up Additional Follow Up: Yes Orders/Referrals Dr Barrios in 7-10 days Activity Activity: Activity as Tolerated Driving Instructions: No Driving for 1 Week NO SMOKING: NO SMOKING Nothing Inside Vagina: No Douching, No [place], No Tampons Diet Discharge Diet: No Restrictions Symptoms to Report to : Bleeding Excessive, Pain Increased, Fever Over 101 Degrees F, Pain/Pressure in Jaw, Questions/Concerns For Any Problems or Questions: Contact Your Physician Skin/Wound Care Infection Signs and Symptoms: Increased Redness, Foul Odor of Wound, Increased Drainage, Skin Itchy or Has a Rash, Increased Swelling, Temperature Above 101 F Operative Area Clean and Dry: Keep Incision Clean/Dry Stitches/José Miguel/Dermabond: Dermabond, Care of Stitches Bathing Instructions: EMMANUEL Choe DO Jan 31, 2019 10:09
[2019-01-31] MEDS ORDERED: ACHD5005 PO (10:11)
[2019-01-31] MEDS ORDERED: IBUP-1773 PO (10:11)
[2019-01-31] MEDS ORDERED: DOCU-143 PO (10:11)
[2019-01-31] MEDS ORDERED: ONDANSETRON 4 MG/2 ML (SDV) Z0FRAN IVP PRN ×2 (10:15→13:30)
[2019-01-31] MEDS ORDERED: HYDROcodone/APAP 5 MG/325 MG (LORTAB) TAB PO PRN (10:15)
[2019-01-31] MEDS ORDERED: KETOROLAC 30 MG/ML VIAL IVP ONE (10:15)
--- NOTE | 2019-01-31 10:15 | Progress Note-Pre Operative ---
Pre-Operative Progress Note H&P Reviewed The H&P was reviewed, patient examined and no changes noted. Date Seen by Provider: Jan 31, 2019 Time Seen by Provider: 10:00 Date H&P Reviewed: Jan 31, 2019 Time H&P Reviewed: 10:00 Pre-Operative Diagnosis: CPP, Ovarian cyst EMMANUEL PECK DO Jan 31, 2019 10:15
[2019-01-31] MEDS ORDERED: ceFAZolin INJECTION 1,000 MG ONE (11:27)
[2019-01-31] MEDS ORDERED: WATER (STERILE) FOR INJECTION 10 ML ONE (11:27)
[2019-01-31] MEDS ORDERED: LIDOCAINE PF 2% 5 ML (XYLOCAINE) VIAL ONE (11:43)
[2019-01-31] MEDS ORDERED: PROPOFOL INJECTION 50 ML IV ONE (11:43)
[2019-01-31] MEDS ORDERED: MIDAZOLAM 2 MG/2 ML (VERSED) VIAL ONE (11:43)
[2019-01-31] MEDS ORDERED: BUPIVACAINE 0.25% 30 ML (SENSORCAINE) VIAL ONE (11:43)
[2019-01-31] MEDS ORDERED: ONDANSETRON 4 MG/2 ML (SDV) Z0FRAN ONE (11:43)
[2019-01-31] MEDS ORDERED: DEXAMETHASONE 10 MG/ML (DECADRON) 1 ML VIAL ONE (11:43)
[2019-01-31] MEDS ORDERED: fentaNYL INJECTION 100 MCG/2 ML AMP ONE (11:43)
[2019-01-31] MEDS ORDERED: SEVOFLURANE (ULTANE) 15 ML INHAL SOLN ONE ×2 (11:44→13:08)
[2019-01-31] MEDS ORDERED: ROCURONIUM 10 MG/ML 5 ML SYRINGE IV ONE ×2 (11:49→13:08)
[2019-01-31] MEDS ORDERED: NEOSTIGMINE 1 MG/ML 5 ML SYRINGE ONE (13:06)
[2019-01-31] MEDS ORDERED: GLYCOPYRROLATE 0.2 MG/ML (ROBINUL) 2 ML VIAL ONE (13:06)
[2019-01-31] MEDS ORDERED: KETOROLAC 30 MG/ML VIAL ONE (13:23)
[2019-01-31] MEDS ORDERED: morphine INJ 10 MG/ML 1ML (SYR OR VIAL) ONE (13:23)
[2019-01-31] MEDS ORDERED: morphine INJ 10 MG/ML 1ML (SYR OR VIAL) IVP ONE (13:30)
[2019-01-31 14:15] VITALS: BP 87/61
[2019-01-31 14:45] VITALS: BP 94/55
[2019-01-31 15:15] VITALS: BP 89/58
[2019-01-31 15:40] VITALS: BP 89/58
--- NOTE | 2019-01-31 19:04 | OPERATIVE REPORT ---
DATE OF SERVICE: PREOPERATIVE DIAGNOSES: 1. A 28-year-old chronic pelvic pain. 2. Complex ovarian cyst. POSTOPERATIVE DIAGNOSES: 1. A 28-year-old chronic pelvic pain. 2. Complex ovarian cyst. PROCEDURE: Operative laparoscopy with lysis of adhesions and left ovarian cystotomy. SURGEON: Emmanuel Peck DO ANESTHESIA: General endotracheal. ESTIMATED BLOOD LOSS: Minimal. URINE OUTPUT: 400. FLUIDS: 1200 mL lactated Ringer's solution. SPECIMENS: None. INDICATION FOR PROCEDURE: This 28-year-old female was a consultation to me from the [facility] for ongoing issues with chronic pelvic pain. The patient reports this has been going on and worsening since the of her last child. She denies any change in sexual partner had STD testing, which was negative as well as an ultrasound that appeared negative with the exception of a complex ovarian cyst, which appeared to be a hemorrhagic cyst that was resolving. I discussed with the patient suppressive therapy with the suspicion of underlying endometriosis versus proceeding with diagnostic laparoscopy. Risks of both were discussed with the patient in detail including recovery time frame from surgery and postoperative expectations. After everything was discussed and the patient was well informed, she decided to move forward with laparoscopic surgery. Consent was obtained in the preoperative area after all her questions were answered and the patient was taken to the operating room. OPERATIVE REPORT IN DETAIL: Once in the operating room, general anesthesia was found to be adequate, placed in dorsal lithotomy position, prepped and draped in normal sterile fashion. Timeout was performed. A Edwards catheter was placed using sterile technique. A weighted speculum was inserted to the patient's vagina. A right angle retractor was used to visualize the cervix, which was grasped at 12 o'clock position using a long Allis clamp. I then gently sounded the uterine cavity that was found to be 8 cm. I then placed a Kronner uterine manipulator, a depth of 8 cm of point in the balloon and using that as my uterine manipulation. I removed all the other instruments from the patient's vagina, performed a change of gloves and took my attention to the abdomen where infraumbilically, I infiltrated this area using 0.25% Marcaine and make a 5 mm incision with a knife and directed a Veress needle through the incision until intraperitoneal placement was confirmed using the saline drop test. I then proceeded with insufflation using CO2 gas. Opening pressure of 5 mmHg was noted. I proceeded to maximum pressure of 15 mmHg, at which point I removed the Veress needle and introduced a 5 mm blunt trocar. Once this was in place, I am able to confirm intraperitoneal placement using the laparoscope. There was no evidence of damage upon entry and the patient placed in steep Trendelenburg after a brief scan of the upper abdominal anatomy appears to be grossly normal. Once the Trendelenburg was made to visualize all my findings including a grossly normal uterus with some serosal adhesions of the left side of the broad ligament to the anterior cul-de-sac. There were some filmy adhesions consistent with history of previous section and the vesicouterine peritoneum. These were all taken down using monopolar cautery once the second trocar was placed under direct visualization of the laparoscope. This is a midline suprapubic 5 mm incision and the trocar was placed under direct visualization of the laparoscope. Once it was in place, I continued the scanned the anatomy and there is a complex fluid-filled simple cyst of the left ovary, which is opened up using monopolar cautery allowed to drain. There was no active bleeding noted from that dissection plane or any of the other dissection planes thought I mentioned above, after which the procedure was deemed complete. The patient was taken out of steep Trendelenburg and insufflation was released. A 10 mL of 0.25% Marcaine were introduced in the peritoneal cavity for postoperative pain management. Once the pneumo is released, the trocars were removed. The skin was reapproximated using Dermabond. Edwards catheter was removed as well so as the Kronner uterine manipulator. The patient tolerated the procedure well and was taken to recovery area in stable condition. Lap and sponge counts were correct at the end of the procedure. Instrument counts were correct as well. Job ID: [id number] DocumentID: [id number] Dictated Date: 01/31/2019 13:09:47 Picker Date: 01/31/2019 19:03:17 Dictated By: EMMANUEL PECK DO
== END 2019-01-31 15:40 | disposition home or self-care (01) ==
LOC: SDC 08:55
PROVIDERS: ATTEND Obstetrics & Gynecology
DX: N83.202 Unspecified ovarian cyst, left side (principal); Z11.2 Encounter for screening for other bacterial diseases
CPT/HCPCS: 36415; 84703; 85025; 86850; 86900; 86901; 87081; 94664

== ENCOUNTER 2022-02-22 09:34 | Emergency (ER) | payer SELFPAY ==
[~2022-02-22 09:34] MED LIST changes: +DOCU-143 PO
--- NOTE | 2022-02-22 10:44 | ED Abdominal Pain ---
General Chief Complaint: Abdominal/GI Problems Stated Complaint: LOW ABD PAIN PELVIC PAIN Nursing Triage Note: PT AMBULATORY TO ER WITH VISITOR. PT IS GEORGIAN SPEAKING, REQUESTING THAT VISITOR INTERPRET FOR HER. PT C/O LOWER ABD PAIN X 3 DAYS, REPORTS POSSIBLE FEVER DURING THE NIGHT. +NAUSEA. PT ALSO STATES FEELS LIKE 'HARD BALL COMING OUT OF MY VAGINA' DENIES VAGINAL BLEEDING. Source of Information: Patient, Other (friend from [employer] who is interpreting for her) Exam Limitations: Language Barrier (DREW GARCIA MD) History of Present Illness Date Seen by Provider: Feb 22, 2022 Time Seen by Provider: 10:30 Initial Comments Patient is a 31-year-old female who presents to the emergency department today with a chief complaint of lower abdominal pain and vaginal pain onset for the last 2 or 3 days. She reports fever last evening with nausea. She feels what may be a cyst in her vagina. Pain radiates from the vagina into the upper thighs. She also has low back pain. Last menstrual cycle was in December. She states she is not currently sexually active there is no way she could be . She does have burning with urination. No vomiting. No diarrhea. She has had previous surgery for ovarian cyst on the left. G3, P3. Sees Dr Barrios. No allergies to medications. It seems she was able to purchase some amoxicillin [id number] from somewhere and [place] yesterday and took a dose of 1000 mg last evening. No Tylenol or ibuprofen today. She rates her pain at a "an 8 or 9". Significant pain with moving, standing, sitting. Not sexually active. Not on control. All other review of systems reviewed and negative except as stated. Timing/Duration: 2-3 Days Severity/Quality: Severe Location: Suprapubic Radiation: Other (low back pain and upper thigh pain) Activities at Onset: None Associated Symptoms: Back Pain, Nausea/Vomiting (nausea without vomiting) (DREW GARCIA MD) Allergies and Home Medications Allergies Coded Allergies: No Known Drug Allergies (Unverified , 01/29/19) Patient Home Medication List Home Medication List Reviewed: Yes (DREW GARCIA MD) Hydrocodone/Acetaminophen (Hydrocodone-Acetamin 5-325 mg) 1 Each Tablet, 1 TAB PO Q6H PRN for PAIN-MODERATE (5-7) Prescribed by: IRAIDA TRIVEDI on 02/22/22 1552 Ondansetron (Ondansetron Odt) 4 Mg Tab.rapdis, 4 MG PO Q6H PRN for NAUSEA/VOMITING Prescribed by: IRAIDA TRIVEDI on 02/22/22 1552 Sulfamethoxazole/Trimethoprim (Bactrim Ds Tablet) 1 Each Tablet, 1 EA PO BID WITH MEALS Prescribed by: ELGIN LONG on 02/22/22 1342 Sulfamethoxazole/Trimethoprim (Bactrim Ds Tablet) 1 Each Tablet, 1 EACH PO BID Prescribed by: IRAIDA TRIVEDI on 02/22/22 1542 Last Action: New Order Discontinued Medications Docusate Sodium (Colace) 100 Mg Capsule, 100 MG PO BID Prescribed by: EMMANUEL BARRIOS on 01/31/19 1011 Last Action: Discontinued Hydrocodone Bit/Acetaminophen (Lortab 5 Mg Tablet) 1 Tab Tab, 1 TAB PO Q4H PRN for PAIN-MODERATE Prescribed by: EMMANUEL BARRIOS on 01/31/19 1011 Last Action: Discontinued Hydrocodone/Acetaminophen (Hydrocodone-Acetamin 5-325 mg) 1 Each Tablet, 1 TAB PO Q6H PRN for PAIN-MODERATE (5-7) Prescribed by: DREW GARCIA on 02/22/22 1258 Last Action: Discontinued Ibuprofen (Ibuprofen) 600 Mg Tablet, 600 MG PO Q6H Prescribed by: EMMANUEL BARRIOS on 01/31/19 1011 Last Action: Discontinued Ondansetron (Ondansetron Odt) 4 Mg Tab.rapdis, 4 MG PO Q8H PRN for nausea Prescribed by: DREW GARCIA on 02/22/22 1257 Last Action: Discontinued Sulfamethoxazole/Trimethoprim (Bactrim Ds Tablet) 1 Each Tablet, 1 EACH PO BID Prescribed by: DREW GARCIA on 02/22/22 1257 Last Action: Discontinued Review of Systems Review of Systems Constitutional: see HPI EENTM: No Symptoms Reported Respiratory: No Symptoms Reported Cardiovascular: No Symptoms Reported Gastrointestinal: Abdominal Pain (suprapubic) Genitourinary: Burning, Other (vaginal pain) Musculoskeletal: back pain (low back; left cva tenderness) Skin: no symptoms reported (DREW GARCIA MD) All Other Systems Reviewed Negative Unless Noted: Yes (DREW GARCIA MD) Past Xieqnnp-Havcit-Afqabp Hx Patient Social History Tobacco Use?: No Use of E-Cig and/or Vaping dev: No Substance use?: No Alcohol Use?: No Pt feels they are or have been: No (DREW GARCIA MD) Immunizations Up To Date Tetanus Booster (TDap): Unknown First/Initial COVID19 Vaccinat: NO (DREW GARCIA MD) Seasonal Allergies Seasonal Allergies: No (DREW GARCIA MD) Past Medical History Surgeries: Yes ( X 3) Section Respiratory: No Currently Using CPAP: No Currently Using BIPAP: No Cardiac: No Neurological: No Last Menstrual Period: Jan 06, 2022 Reproductive Disorders: No Female Reproductive Disorders: Ovarian Cyst Sexually Transmitted Disease: No HIV/AIDS: No Genitourinary: No Gastrointestinal: No Musculoskeletal: No Endocrine: No HEENT: Yes (GLASSES/CONTACTS) Loss of Vision: Bilateral Hearing Impairment: Denies Cancer: No Psychosocial: No Integumentary: No Blood Disorders: Yes (LOW PLATELETS) Adverse Reaction/Blood Tranf: No (DREW GARCIA MD) Family Medical History Patient reports no known family medical history. No Pertinent Family Hx (DREW GARCIA MD) Physical Exam Vital Signs Vital Signs - First Documented 02/22/22 09:50 Temp 37.1 Pulse 82 Resp 20 B/P (MAP) 116/72 (87) Pulse Ox 99 O2 Delivery Room Air (IRAIDA TRIVEDI) Vital Signs Capillary Refill : (DREW GARCIA MD) Height/Weight/BMI Height: 5'4.00" Weight: 157lbs. 0.2oz. 71.448289yn; 27.0 BMI Method:Stated General Appearance: WD/WN, no apparent distress HEENT: PERRL/EOMI Respiratory: lungs clear, normal breath sounds, no respiratory distress, no accessory muscle use Cardiovascular: regular rate, rhythm Gastrointestinal: soft, tenderness (suproapubic) Genital/Rectal: other (patient has large area of swelling at the urethral meatus - about the size of a golf ball or a little bigger. I was able to insert a finger about 3cm posterior to the mass - mass feels somewhat soft but not fluctuant; no surrounding erythema or other skin wounds. Speculum exam not attempted due to the size of the mass and patient discomfort.) Extremities: normal range of motion, non-tender, normal inspection, no pedal edema, normal capillary refill Back: CVA tenderness (L) Neurologic/Psychiatric: alert, normal mood/affect, oriented x 3 Skin: normal color, warm/dry (DREW GARCIA MD) Progress/Results/Core Measures Results/Orders Lab Results Laboratory Tests Test 02/22/22 10:01 Range/Units Urine Color YELLOW Urine Clarity CLEAR Urine pH 6.0 5-9 Urine Specific [place] 1.025 H 1.016-1.022 Urine Protein NEGATIVE NEGATIVE Urine Glucose (UA) NEGATIVE NEGATIVE Urine Ketones NEGATIVE NEGATIVE Urine Nitrite NEGATIVE NEGATIVE Urine Bilirubin NEGATIVE NEGATIVE Urine Urobilinogen 0.2 < = 1.0 MG/DL Urine Leukocyte Esterase 2+ H NEGATIVE Urine RBC (Auto) TRACE-I H NEGATIVE Urine RBC RARE /HPF Urine WBC 2-5 /HPF Urine Squamous Epithelial Cells 2-5 /HPF Urine Crystals NONE /LPF Urine Bacteria FEW H /HPF Urine Casts NONE /LPF Urine Mucus NEGATIVE /LPF Urine Culture Indicated YES (IRAIDA TRIVEDI) Medications Given in ED Current Medications Medications Dose Ordered Sig/Chaya Route Start Time Stop Time Status Last Admin Dose Admin Fentanyl Citrate 50 mcg ONCE ONCE IVP 02/22/22 11:15 02/22/22 11:16 DC 02/22/22 11:05 50 MCG Fentanyl Citrate 50 mcg ONCE ONCE IVP 02/22/22 11:45 02/22/22 11:46 DC 02/22/22 11:46 50 MCG Gadoterate Meglumine 15 ml ONCE ONCE IV 02/22/22 13:45 02/22/22 14:04 DC 02/22/22 13:47 12 ML Ketorolac Tromethamine 30 mg ONCE ONCE IVP 02/22/22 11:00 02/22/22 11:01 DC 02/22/22 10:52 30 MG Lidocaine HCl 10 ml ONCE ONCE TOP 02/22/22 11:15 02/22/22 11:16 DC 02/22/22 11:14 10 ML (IRAIDA TRIVEDI) Vital Signs/I&O 02/22/22 02/22/22 02/22/22 09:50 12:27 12:51 Temp 37.1 Pulse 82 70 67 Resp 20 16 18 B/P (MAP) 116/72 (87) 88/58 104/66 Pulse Ox 99 100 100 O2 Delivery Room Air Room Air Room Air (IRAIDA TRIVEDI) Blood Pressure Mean: 87 Progress Progress Note #1: Time: 11:52 Progress Note test in ER NEGATIVE. Discussed with Dr Barrios (he is her physician) he is booked up in clinic and asked that we call Dr Long. She will be down to see. Attempted to catheterize the meatus with a pediatric feeding tube after topical anesthesia with a Urojet. Immediate return of white/yellow pus from the meatus. Was unable to decompress the area. - at that point consulted [employer]. Progress Note #2: Time: 12:[address] Rodriguez saw and evaluated the patient. She discussed the mass at the urethral meatus with Dr. Rueda who recommended her to get an MRI of the pelvis with IV contrast today. Recommended home with antibiotics, Bactrim. He will see her in 1 week. We will send her home with pain medications as well. No sex or tampons until she has follow-up with both Dr. Rueda and with Dr. Barrios. (DREW GARCIA MD) Diagnostic Imaging Diagonstic Imaging: MRI Plain Films/CT/US/NM/MRI: pelvis Comments [facility], [place] NAME: BOB SAUNDERS [facility] REC#: [id number] PT STATUS: REG ER : 1990 PHYSICIAN: DREW GARCIA MD ADMIT DATE: 02/22/22/ER Draft Date of Exam:02/22/22 MRI PELVIS WITH/WO CONTRAST PROCEDURE: MRI pelvis with and without contrast. TECHNIQUE: Multiplanar, multisequence MRI of the pelvis was performed with and without contrast. INDICATION: Urethral mass. Painful drainage. COMPARISON: None available. FINDINGS: There is a T2 hyperintense circumscribed mass with the epicenter located at the posterior middle one/third of the urethra. At its most cranial aspect, this has near circumferential encasement of the urethra but more distally is positioned posteriorly along the distal urethra. This cystic lesion measures 3.3 cm in length, 3.3 cm in width, and has an AP maximal dimension of 2.0 cm. On post contrast imaging, there is avid enhancement of the wall and adjacent soft tissues suggesting the presence of superimposed infection. There are a few subcentimeter inguinal lymph nodes which are likely reactive in nature. No enlarged pelvic lymph nodes. No free pelvic fluid. The uterus has a hypointense scar along its anterior lower segment, likely from prior section. The cervix is unremarkable. No adnexal mass. The visualized osseous structures are unremarkable. IMPRESSION: 1. There is a large cystic structure that likely has epicenter in the mid urethra. This measures 3.3 cm in length and, due to large size, its inferior margin abuts the external urethral meatus. This is most compatible with a urethral diverticulum and there is avid enhancement of the diverticular soriano, suggestive of superimposed infection. A [place] gland cyst is felt less likely given the morphology; however, given its position near the inferior urethral meatus, this should remain a consideration. 2. There are a few borderline bilateral inguinal lymph nodes which are likely reactive in nature due to superimposed infection. Dictated on workstation # [id number] Dict: 02/22/22 1439 Trans: 02/22/22 1457 [id number] Interpreted by: NEDA RUIZ MD Electronically signed by: Reviewed: Reviewed by Me (IRAIDA TRIVEDI) Departure Impression Primary Impression: Urethral diverticulum Additional Impression: Urethritis Disposition: 01 HOME, SELF-CARE Condition: Stable Departure-Patient Inst. Decision time for Depature: 15:36 (IRAIDA TRIVEDI) Referrals: [facility] [place]) Primary Care Physician EMMANUEL BARRIOS ELIAS A MD Patient Instructions: ABSCESS Add. Discharge Instructions: Warm Sitz baths may help the pain. I have sent you home with pain medications. Take this only as needed every 6 hours with food. This medication is addictive. Take only when needed. This medication can cause constipation. Take a stool softener daily while taking pain medication You can also take Ibuprofen 3 pills (600mg) every 6 hours with food as needed for pain. Nausea medications every 8 hours as needed for upset stomach. Bactrim (antibiotic) 1 pill twice a day for 7 days. Finish the entire course. Drink lots of water while on this medicine. Stop taking the other pill you started last night. Return to the ER for any worsening pain especially with fever over 100.4, vomiting, or other emergent, concerning symptoms. Follow up with Dr Rueda in ONE WEEK. His contact information is on this paper. Also you will need to follow up with Dr Barrios. Scripts Ondansetron (Ondansetron Odt) 4 Mg Tab.rapdis 4 MG PO Q6H PRN for NAUSEA/VOMITING, #8 TAB 0 Refills Prov: IRAIDA TRIVEDI 02/22/22 Hydrocodone/Acetaminophen (Hydrocodone-Acetamin 5-325 mg) 1 Each Tablet 1 TAB PO Q6H PRN for PAIN-MODERATE (5-7), #15 TAB 0 Refills Prov: IRAIDA TRIVEDI 02/22/22 Sulfamethoxazole/Trimethoprim (Bactrim Ds Tablet) 1 Each Tablet 1 EACH PO BID for 10 Days, #20 TAB 0 Refills Prov: IRAIDA TRIVEDI 02/22/22 Sulfamethoxazole/Trimethoprim (Bactrim Ds Tablet) 1 Each Tablet 1 EA PO BID WITH MEALS, #20 TAB Prov: ELGIN LONG DO 02/22/22 Copy Copies To 1: EMMANUEL BARRIOS DO; MILADIS MORALES MD, KATHRYN M MD Feb 22, 2022 10:44 IRAIDA TRIVEDI Feb 22, 2022 15:36
[2022-02-22 10:45] LABS: BILIRUBIN,URINE NEGATIVE (NEGATIVE); CLARITY,URINE CLEAR; COLOR,URINE YELLOW; GLUCOSE, URINE (UA) NEGATIVE (NEGATIVE); KETONES,URINE NEGATIVE (NEGATIVE); LEUKOCYTE ESTERASE ,URINE 2+ (NEGATIVE); NITRITE,URINE NEGATIVE (NEGATIVE); PROTEIN,URINE NEGATIVE (NEGATIVE)
[2022-02-22 10:58] LABS: BACTERIA,URINE FEW /HPF; RBC,URINE RARE /HPF
[2022-02-22] MEDS ORDERED: KETOROLAC 30 MG/ML VIAL IVP ONE (11:00)
[2022-02-22] MEDS ORDERED: fentaNYL INJ 100 MCG/2 ML AMP ONE (11:02)
[2022-02-22] MEDS ORDERED: LIDOCAINE UROJET 2% GEL 10 ML PKG TOP ONE (11:15)
[2022-02-22] MEDS ORDERED: fentaNYL INJ 100 MCG/2 ML AMP IVP ONE ×2 (11:15→11:45)
[2022-02-22] MEDS ORDERED: ONDA4TAB11 PO ×2 (12:57→15:52)
[2022-02-22] MEDS ORDERED: SULF1TAB38 PO ×3 (12:57→15:42)
[2022-02-22] MEDS ORDERED: ACHD5005 PO ×2 (12:57→15:52)
--- NOTE | 2022-02-22 13:19 | Consultation ---
History of Present Illness History of Present Illness Patient Consulted On(dayanna/time) 02/22/22 13:14 Date Seen by Provider: Feb 22, 2022 Time Seen by Provider: 12:20 Reason for Visit: lower pelvic, vaginal pain History of Present Illness I was consulted to see a patient in the emergency department. She is a 31 year old with history of CS x 3. She presents with complaint of lowere pelvic pain since Monday and noticed a swelling/lump in the vagina on Monday. States it hurts to void and hurts to stand/sit. She has not taking anything for pain or done anything to make it feel better. Also states she has never had anything like this before. She states LMP was the end of December. Has had a LS for a left ovarian cyst in the past (Dr. barrios). Dr. Barrios did two of her three CS as well. No history of vaginal delivery, vaginal tears, vaginal trauma. No history of bladder or kidney stones. She has not had abnormal bleeding or discharge. Dr. Garcia states that she has given Rhoda 2 doses of IV Fentanyl and the patient states it feels better, as long as she lies down. PMH - PSH as above no allergies no current meds Allergies and Home Medications Allergies Coded Allergies: No Known Drug Allergies (Unverified , 01/29/19) Patient Home Medication List Home Medication List Reviewed: Yes Discontinued Medications Docusate Sodium (Colace) 100 Mg Capsule, 100 MG PO BID Prescribed by: EMMANUEL BARRIOS on 01/31/19 1011 Last Action: Discontinued Hydrocodone Bit/Acetaminophen (Lortab 5 Mg Tablet) 1 Tab Tab, 1 TAB PO Q4H PRN for PAIN-MODERATE Prescribed by: EMMANUEL BARRIOS on 01/31/19 1011 Last Action: Discontinued Hydrocodone/Acetaminophen (Hydrocodone-Acetamin 5-325 mg) 1 Each Tablet, 1 TAB PO Q6H PRN for PAIN-MODERATE (5-7) Prescribed by: DREW GARCIA on 02/22/22 1258 Last Action: Discontinued Ibuprofen (Ibuprofen) 600 Mg Tablet, 600 MG PO Q6H Prescribed by: EMMANUEL BARRIOS on 01/31/19 1011 Last Action: Discontinued Ondansetron (Ondansetron Odt) 4 Mg Tab.rapdis, 4 MG PO Q8H PRN for nausea Prescribed by: DREW GARCIA on 02/22/22 1257 Last Action: Discontinued Sulfamethoxazole/Trimethoprim (Bactrim Ds Tablet) 1 Each Tablet, 1 EACH PO BID Prescribed by: DREW GARCIA on 02/22/22 1257 Last Action: Discontinued Past Bypdjqf-Utgdak-Jtlwxl Hx Patient Social History Tobacco Use?: No Smoking Status: Unknown if Ever Smoked Use of E-Cig and/or Vaping dev: No Substance use?: No Alcohol Use?: No Pt feels they are or have been: No Immunizations Up To Date Tetanus Booster (TDap): Less than 5yrs First/Initial COVID19 Vaccinat: NO Seasonal Allergies Seasonal Allergies: No Past Medical History Surgeries: Yes ( X 3; LS with ovarian cystectomy) Section Respiratory: No Currently Using CPAP: No Currently Using BIPAP: No Cardiac: No Neurological: No Last Menstrual Period: Jan 06, 2022 Hx : 3 Hx Para: 3 Hx Total # of Abortions (Sp): 0 Reproductive Disorders: No Female Reproductive Disorders: Ovarian Cyst Sexually Transmitted Disease: No HIV/AIDS: No Genitourinary: No Gastrointestinal: No Musculoskeletal: No Endocrine: No HEENT: Yes (GLASSES/CONTACTS) Loss of Vision: Bilateral Hearing Impairment: Denies Cancer: No Psychosocial: No Integumentary: No Blood Disorders: Yes (LOW PLATELETS) Adverse Reaction/Blood Tranf: No Family Medical History Patient reports no known family medical history. No Pertinent Family Hx Review of Systems-General Constitutional: no symptoms reported Respiratory: no symptoms reported Cardiovascular: no symptoms reported Genitourinary: No discharge; dysuria; No frequency, No hematuria; pain : No All Other Systems Reviewed Negative Unless Noted: Yes Physical Exam-General Problems Physical Exam Vital Signs Vital Signs - First Documented 02/22/22 09:50 Temp 37.1 Pulse 82 Resp 20 B/P (MAP) 116/72 (87) Pulse Ox 99 O2 Delivery Room Air Capillary Refill : Genital/Rectal: other (There is a midline "mass" in the vagina, just behind the urethral meatus and it pushes the meatus forward. There is a white fluid coming from the meatus. Per Dr. Garcia, she attempted to place a pediatric feeding tube and this was difficult, but also, copius amounts of white fluid/pus came out. The vaginal epithelium is not erythematous. The mass is fluctuant and tender (she has had topical lidocaine placed and states that did help the pain); a speculum exam was not done. The vagina was palpated and the mass is walnut sized (approximately 2x3 cm) and there are no other lesions/masses noted. This is not in the area of the skene's gland. There is full thickness vaginal ep ithelium overlying the "mass". ) Assessment/Plan Assessment/Plan Admission Diagnosis/Plan 1. Vaginal wall mass, suspect urethral diverticulum 2. Suspected urinary tract infection Plan - obtain MRI for diagnosis and to rule out diverticular stone (there are not red cells/blood on UA and mass is soft, so this is unlikely). Treat conse rvatively for now. Treat for suspected UTI and change antibiotic based on culture as necessary. Discussed with Dr. Wood and he will see her in the office to discuss diverticular excision. Will await MRI results and change plan as indicated. History and exam, assessment and plan were discussed with patient through assistance with a dermatological surgeon accompanying the patient. Rx Bactrim [facility] Treat with Sitz baths, Ibuprofen/tylenol as necessary. Admission Status: Other (Clinic) ELGIN LONG DO Feb 22, 2022 13:19
[2022-02-22] MEDS ORDERED: LIDOCAINE JELLY 2% (XYLOCAINE) 5 ML TUBE TOP ONE (13:45)
[2022-02-22] MEDS ORDERED: TRIM/SULFAMETH 160/800 (SEPTRA DS) TAB PO SCH (13:45)
[2022-02-22] MEDS ORDERED: GADOTERATE 0.5 MMOL/ML (CLARISCAN) 15 ML VIAL IV ONE (13:45)
--- NOTE | 2022-02-22 14:57 | Diagnostic Imaging Report ---
PROCEDURE: MRI pelvis with and without contrast. TECHNIQUE: Multiplanar, multisequence MRI of the pelvis was performed with and without contrast. INDICATION: Urethral mass. Painful drainage. COMPARISON: None available. FINDINGS: There is a T2 hyperintense circumscribed mass with the epicenter located at the posterior middle one/third of the urethra. At its most cranial aspect, this has near circumferential encasement of the urethra but more distally is positioned posteriorly along the distal urethra. This cystic lesion measures 3.3 cm in length, 3.3 cm in width, and has an AP maximal dimension of 2.0 cm. On post contrast imaging, there is avid enhancement of the wall and adjacent soft tissues suggesting the presence of superimposed infection. There are a few subcentimeter inguinal lymph nodes which are likely reactive in nature. No enlarged pelvic lymph nodes. No free pelvic fluid. The uterus has a hypointense scar along its anterior lower segment, likely from prior section. The cervix is unremarkable. No adnexal mass. The visualized osseous structures are unremarkable. IMPRESSION: 1. There is a large cystic structure that likely has epicenter in the mid urethra. This measures 3.3 cm in length and, due to large size, its inferior margin abuts the external urethral meatus. This is most compatible with a urethral diverticulum and there is avid enhancement of the diverticular soriano, suggestive of superimposed infection. A [place] gland cyst is felt less likely given the morphology; however, given its position near the inferior urethral meatus, this should remain a consideration. 2. There are a few borderline bilateral inguinal lymph nodes which are likely reactive in nature due to superimposed infection. Dictated by: Dictated on workstation # [id number]
[2022-02-22 16:00] VITALS: BP 106/62
[2022-02-22] MEDS ORDERED: HYDROcodone/APAP 5 MG/325 MG (LORTAB) TAB PO ONE (16:00)
== END 2022-02-22 16:01 | disposition home or self-care (01) ==
LOC: EDUNIT# 09:34 → ER 09:36
DX: N36.1 Urethral diverticulum (principal); N34.2 Other urethritis
CPT/HCPCS: 72197; 81000; 84703; 87070; 87088; 87205

== ENCOUNTER → 2023-07-28 | Outpatient (CLI) | payer OTHER ==
[~2023-07-28] MED LIST changes: +FERRIC CARBOXYMALTOSE INJ 750 MG in NS (IVPB) 250 ML 250 ML IV SCH; +ONDA4TAB11 PO; +SULF1TAB38 PO
[2023-07-28 13:02] VITALS: BP 98/58
== END ==
LOC: SDC 12:44
PROVIDERS: ATTEND Student in an Organized Health Care Education/Training Program
DX: D64.9 Anemia, unspecified (principal)
CPT/HCPCS: 96365

== ENCOUNTER 2023-08-02 05:52 | Outpatient (CLI) | payer OTHER ==
[~2023-08-02] VITALS: Ht 162.6 cm; Wt 78.2 kg
[~2023-08-02 05:52] MED LIST changes: -FERRIC CARBOXYMALTOSE INJ 750 MG in NS (IVPB) 250 ML 250 ML IV SCH
[2023-08-08] MEDS ORDERED: IBUP-844 PO (07:21)
[2023-08-08] MEDS ORDERED: ACHD5005 PO (07:21)
[2023-08-08] MEDS ORDERED: DOCU100C37 PO (07:21)
== END 2023-08-02 09:25 | disposition home or self-care (01) ==
LOC: PREOP 05:52
PROVIDERS: ATTEND Obstetrics & Gynecology
DX: Z01.818 Encounter for other preprocedural examination (principal)

== ENCOUNTER 2023-08-07 10:48 | Inpatient (IN) | payer OTHER ==
[2023-08-07] VITALS (9 sets, daily range): BP systolic 92–100; BP diastolic 56–72
[~2023-08-07] VITALS: Ht 160 cm; Wt 81.9 kg
[2023-08-07] MEDS ORDERED: ceFAZolin INJECTION 2,000 MG in NS (IVPB) 50 ML 50 ML IV ONE ×2 (11:00→11:15)
--- OUTSIDE RECORDS SUMMARY | 2023-08-07 11:01 | XMS REPORT ---
Author Author Rhoda HOLLINS Organization [facility] Address [address] [place] [address] Care Team Providers Care [employer] Worker Name Role Phone ISSA HOLLINS Unavailable PROBLEMS Type Condition ICD9-CM Code [id number] Code Onset Dates Condition Status SNOMED Code Problem S/P repeat low transverse Z98.89 Active 5280392 06 Problem Thrombocytopenia D69.6 Active 7812604 08 ALLERGIES Unknown Allergies SOCIAL HISTORY No smoking Hx information available PLAN OF CARE VITAL SIGNS MEDICATIONS Unknown Medications RESULTS No Results PROCEDURES No Known procedures IMMUNIZATIONS No Known Immunizations
--- OUTSIDE RECORDS SUMMARY | 2023-08-07 11:01 | XMS REPORT ---
Author Author Rhoda HOLLINS Organization [employer] Address Unknown Phone Unavailable Care Team Providers Care Debeader Name Role Phone ISSA HOLLINS CP Unavailable Allergies No Known Allergies Problems Problem Type Condition Code Onset Dates Condition S tatus Problem Normal in multigravida in second trimester Z34.82 Active Problem Late care a ffecting in second trimester O09.32 Active Problem Third trimester Z33.1 Active Problem S/P repeat low transverse Z98.89 Active Problem Thrombocytopenia D69.6 Active Medications No Known Medications Results No Known Results Summary Purpose [employer] Submission
--- OUTSIDE RECORDS SUMMARY | 2023-08-07 11:01 | XMS REPORT ---
Author Author Rhoda JACOBSEN [facility] [employer] Address Unknown Phone Unavailable Care Team Providers Care Customer Experience Specialist Name Role Phone RAMA JACOBSEN CP Unavailable Allergies, Adverse Reactions, Alerts Substance Reaction Event Type N.K.D.A. Info Not Available Non Drug Kurt rgy Problems Problem Type Condition Code Onset Dates Condition S tatus Problem Thrombocytopenia D69.6 Active Medications Medication Code System Code Instructions Start Date End Date Status Dosage One Daily [facility] 23659-31 131 27-0.8 MG Orally not defined Results No Known Results Summary Purpose [employer] Submission
--- OUTSIDE RECORDS SUMMARY | 2023-08-07 11:01 | XMS REPORT ---
Author Author Rhoda HOLLINS Organization [facility] Address [address] [place] [address] Care Team Providers Care Manager Labor Relations Name Role Phone GUNJAN ISSA Unavailable PROBLEMS Type Condition ICD9-CM Code [id number] Code Onset Dates Condition Status SNOMED Code Problem S/P repeat low transverse Z98.89 Active 1652097 06 Problem Thrombocytopenia D69.6 Active 1385676 08 ALLERGIES Substance Reaction Event Type Date Status N.K.D.A. Unknown Non Drug Allergy Nov, Unknow n SOCIAL HISTORY No smoking Hx information available PLAN OF CARE Activity Details VITAL SIGNS Height 65 in 2016-12-21 Weight 163.4 lbs 2016-12-21 Temperature 98.1 degrees Fahrenheit Heart Rate 80 bpm 2016-12-21 Respiratory Rate 18 2016-12-21 BMI 27.19 kg/m2 2016-12-21 Blood pressure systolic 120 mmHg Blood pressure diastolic 68 mmHg 2016-11 MEDICATIONS Medication Instructions Dosage Frequency Start Date End Date Du ration Status Depo-Provera 150 MG/ML Intramuscular every 12 weeks 1 ml Nov, 1 dose Active RESULTS Name Result Date Reference Range TEST, URINE (IN HOUSE) RESULTS negative Lot # [id number] Control + Exp date 02/2018 PERIPHERAL BLOOD SMEAR 2016-12-21 WBC Note: RBC Normal PLTs Normal Comments/Recommendations Pathologist TSH 2016-12-21 TSH 0.835 0.450-4.500 CBC 2016-12-21 WBC 5.9 3.4-10.8 RBC 4.25 3.77-5.28 Hemoglobin 12.8 11.1-15.9 Hematocrit 37.7 34.0-46.6 MCV 89 79-97 MCH 30.1 26.6-33.0 MCHC 34.0 31.5-35.7 RDW 15.4 12.3-15.4 Platelets 156 150-379 Neutrophils 53 Lymphs 32 Monocytes 7 Eos 8 Basos 0 Neutrophils (Absolute) 3.1 1.4-7 .0 Lymphs (Absolute) 1.9 0.7-3.1 Monocytes(Absolute) 0.4 0.1-0.9 Eos (Absolute) 0.5 0.0-0.4 Baso (Absolute) 0.0 0.0-0.2 Immature Granulocytes 0 Immature Grans (Abs) 0.0 0.0-0.1 CMP 2016-12-21 Glucose, Serum 101 65-99 BUN 10 6-20 Creatinine, Serum 0.63 0.57-1.00 eGFR If NonAfricn Am 127 >59 eGFR If Africn Am 146 >59 BUN/Creatinine Ratio 16 8-20 Sodium, Serum 142 134-144 Potassium, Serum 4.0 3.5-5.2 Chloride, Serum 100 96-106 Carbon Dioxide, Total 26 18-29 Calcium, Serum 9.3 8.7-10.2 Protein, Total, Serum 7.4 6.0-8. 5 Albumin, Serum 4.6 3.5-5.5 Globulin, Total 2.8 1.5-4.5 A/G Ratio 1.6 1.1-2.5 Bilirubin, Total 0.3 0.0-1.2 Alkaline Phosphatase, S 112 39-1 17 AST (SGOT) 25 0-40 ALT (SGPT) 28 0-32 PROCEDURES Procedure Date Ordered Related Diagnosis Body Site COMPLETE CBC W/AUTO DIFF WBC Dec 21, 2016 BLOOD SMEAR INTERPRETATION Dec 21, 2016 THER/PROPH/DIAG INJ, SC/IM Dec 21, 2016 INJ MDRXYPRGESTRON CNTRACPT 150 MG Dec 21, 2016 VENIPUNCT, ROUTINE* Dec 21, 2016 ASSAY THYROID STIM HORMONE Dec 21, 2016 COMPREHEN METABOLIC PANEL Dec 21, 2016 Office Visit, Est Pt., Level 3 Dec 21, 2016 URINE TEST Dec 21, 2016 IMMUNIZATIONS Vaccine Route Administration Date Status MEDRXYPROGESTERONE ACETATE IM Intramuscular Dec 21 17 Administered
--- OUTSIDE RECORDS SUMMARY | 2023-08-07 11:01 | XMS REPORT ---
Author Author Rhoda DOOLEY Organization [employer] Address Unknown Phone Unavailable Care Team Providers Care Reserves Clerk Name Role Phone KIM DOOLEY CP Unavailable Allergies, Adverse Reactions, Alerts Substance Reaction Event Type N.K.D.A. Info Not Available Non Drug Kurt rgy Problems Problem Type Condition Code Onset Dates Condition S tatus Assessment Hematuria R31.9 Active Assessment Acute hemorrhoid K64.9 Active Problem Thrombocytopenia D69.6 Active Assessment Headache, unspecified headache type R51 Active Assessment , unspecifi ed gestational age Z33.1 Active Medications Medication Code System Code Instructions Start Date End Date Status Dosage Advantage NDC 0 not define d Procedures Procedure Coding System Code Date Office Visit, Est Pt., Level 3 CPT-4 74442 June 16, 2016 URINE TEST CPT-4 73886 May URINALYSIS, AUTO, W/O SCOPE CPT-4 99386 June 16, 2016 Vital Signs Date/Time: June 16, 2016 Cardiac Monitoring Heart Rate 84 bpm Weight 145.4 lbs Height 65 in Blood Pressure Diastolic 56 mmHg Blood Pressure Systolic 106 mmHg Results No Known Results Summary Purpose [employer] Submission
--- OUTSIDE RECORDS SUMMARY | 2023-08-07 11:01 | XMS REPORT ---
Author Author Rhoda HOLLINS Organization [employer] Address Unknown Phone Unavailable Care Team Providers Care Machine Egg Washer Name Role Phone ISSA HOLLINS CP Unavailable Allergies No Known Allergies Problems Problem Type Condition Code Onset Dates Condition S tatus Problem Normal in multigravida in second trimester Z34.82 Active Problem Late care a ffecting in second trimester O09.32 Active Problem Third trimester Z33.1 Active Assessment Glucose tolerance test abnormal R73.02 Active Problem S/P repeat low transverse Z98.89 Active Problem Thrombocytopenia D69.6 Active Medications Medication Code System Code Instructions Start Date End Date Status Dosage Iron [facility] [address] 6 325 (65 Fe) MG Orally Once a day Oct 06, 2016 1 tablet Procedures Procedure Coding System Code Date GLUCOSE TOLERANCE TEST (GTT) CPT-4 08963 Oct 06, 2016 GTT-ADDED SAMPLES CPT-4 91839 Oct 06 16 Results Name Result Date Reference Range Unit Abno rmality Flag GLUCOSE TERESA 3 HOUR ----Glucose - Fasting 83 [id number] ----Glucose - 1 hour 154 [id number] ----Glucose - 2 hour 135 [id number] ----Glucose - 3 hour 121 [id number] Summary Purpose [employer] Submission
--- OUTSIDE RECORDS SUMMARY | 2023-08-07 11:01 | XMS REPORT ---
Author Author Rhoda Zayas Do ctor Organization [facility] Address Unknown Phone Unavailable Care Team Providers Care Oral And Maxillofacial Pathologist Name Role Phone Migration, Doctor Unavailable Unavailable PROBLEMS Type Condition ICD9-CM Code GAH89-YF Code Onset Dates Condition Status SNOMED Code Problem Thrombocytopenia D69.6 Active 3712848 08 Problem Hyperpigmentation L81.9 Active 942296 09 ALLERGIES No Information ENCOUNTERS Encounter Location Date Diagnosis [facility] [address] [address] Nov, Dysuria R30.0 ; Pelvic mass R19.00 and Urinary tract infection without hematuria, site unspecified N39.0 [facility] [address] [address] Sep, Pelvic mass R19.00 and Dysuria R30.0 [facility] [address] [address] Apr, [facility] [address] [address] 14 Jan, 2018 Thrombocytopenia D69.6 [place] [address] [address] Jan, Thrombocytopenia D69.6 and Hyperpigmentation L81.9 [place] [address] [address] 05 Jan, 2018 Skin lesion of face L98.9 [place] [address] [address] 02 Dec, 2017 Encounter for routine adult health examination with abnormal findings Z00.01 ; Hyperpigmentation L81.9 and Frequent headaches R51 [place] [address] [address] Dec, Encounter for routine adult health examination with abnormal findings Z00.01 ; Hyperpigmentation L81.9 and Frequent headaches R51 [address] [address] Nov, Scabies exposure Z20.[address] [address] Nov, [address] [address] Nov, Thrombocytopenia D69.6 ; examination following delivery Z39.2 ; LFT elevation R94.5 ; Hair loss L65.9 ; Encounter for initial prescription of injectable contraceptive Z30.013 and Hematochezia K92.[address] [address] Nov, [address] [address] Nov, [place] [address] [address] Oct, [address] [address] Oct, [address] [address] Sep, [address] [address] Sep, Third trimester Z33.1 ; Thrombocytopenia D69.6 and 37 weeks gestation of Z3A.[address] [address] Sep, screening for streptococcus B Z36 ; Third trimester Z33.1 and 36 weeks gestation of Z3A.36 [place] [id number] [place] [address] Sep, Glucose tolerance test abnormal R73.02 [place] [address] [place] [id number] [place] [address] Sep, [place] [id number] [place] [address] Sep, Third trimester Z33.1 ; Visual changes H53.9 ; 34 weeks gestation of Z3A.34 and Encounter for immunization Z23 [place] [id number] [place] [address] Sep, [place] [id number] [place] [address] Jul, Other diseases of the blood and blood-forming organs and certain disorders involving the immune mechanism complicating , second trimester O99.112 ; Thrombocytopenia, unspecified D69.6 ; S/P repeat low transverse Z98.89 ; Third trimester Z33.1 ; 29 weeks gestation of Z3A.29 and Encounter for immunization Z23 [place] [id number] [place] [address] May, Normal in multigravida in second trimester Z34.82 ; Late care affecting in second trimester O09.32 ; S/P repeat low transverse Z98.89 and 19 weeks gestation of Z3A.19 [place] [id number] [place] [address] May, [facility] [address] [place] [id number] [place] [address] May, Hematuria R31.9 ; Acute hemorrhoid K64.9 ; Headache, unspecified headache type R51 and , unspecified gestational age Z33.1 [place] [id number] [place] [address] Jun, Unspecified high-risk V23.9 ; Unspecified thrombocytopenia 287.5 and Previous delivery, unspecified as to episode of care or not applicable 654.[address] [place] [address] Jun, Supervision of other normal V22.1 [place] [address] [place] [id number] [place] [address] May, Supervision of other normal V22.1 ; screening for streptococcus B V28.6 ; Gestational thrombocytopenia 649.30 and Anemia affecting 648.20 [place] [address] [address] May, [place] [address] [place] [id number] [place] [address] May, Unspecified high-risk V23.9 ; Gestational thrombocytopenia 649.30 and Diabetes mellitus screening V77.1 [place] [address] [place] [id number] [place] [address] Apr, Supervision of other normal V22.1 ; Screening for diabetes mellitus V77.1 ; TDAP DX V06.1 ; Previous delivery, unspecified as to episode of care or not applicable 654.20 and Gestational thrombocytopenia 649.30 [place] [address] [place] [id number] [place] [address] March, Supervision of other normal V22.1 ; Gestational thrombocytopenia 649.30 and Previous delivery, unspecified as to episode of care or not applicable 654.20 [place] [id number] [place] [address] Feb, [place] [address] [place] [id number] [place] [address] Feb, [place] [address] [place] [id number] [place] [address] Jan, [place] [address] [place] [id number] [place] [address] Jan, [place] [address] [place] [id number] [place] [address] Jan, [place] [address] [id number] [place] [address] Jan, [facility] [place] [facility] [address] [id number] [place] [address] Jan, [facility] [place] [facility] [address] [id number] [place] [address] Dec, 2014 [facility] [place] [facility] [address] [id number] [place] [address] Dec, 2014 [facility] [place] [facility] [address] [id number] [place] [address] Dec, 2014 [facility] [place] [facility] [address] [id number] [place] [address] Dec, 2014 [facility] [place] [facility] [address] [facility] [id number] [place] [address] Dec, [facility] [place] [facility] [address] [facility] [id number] [place] [address] Dec, 2014 [facility] [place] [facility] [address] [facility] [id number] [place] [address] Dec, [facility] [place] [facility] [address] [facility] [id number] [place] [address] Dec, 2014 [facility] [place] [facility] [address] [facility] [id number] [place] [address] Dec, 2014 [facility] [place] [facility] [address] [facility] [id number] [place] [address] 13 Dec, 2014 [facility] [place] [facility] [address] [facility] [id number] [place] [address] 12 Dec, 2014 [facility] [place] [facility] [address] [facility] [id number] [place] [address] Dec, 2014 [facility] [place] [facility] [address] [facility] [id number] [place] [address] 10 Dec, 2014 [facility] [place] [facility] [address] [place] [id number] [address] Dec, [facility] [address] [address] Nov, [facility] [address] [address] Nov, [facility] [address] [address] Nov, [facility] [address] [address] Nov, [facility] [address] [address] Nov, [facility] [address] [address] Nov, [facility] [address] [place] [address] Nov, IMMUNIZATIONS No Known Immunizations SOCIAL HISTORY Never Assessed REASON FOR VISIT [facility] [place] VITAL SIGNS MEDICATIONS No Known Medications RESULTS No Results PROCEDURES No Known procedures INSTRUCTIONS MEDICATIONS ADMINISTERED No Known Medications MEDICAL (GENERAL) HISTORY Type Description Date Medical History Low white blood cells- Medical History high cholesterol Medical History S/P repeat low transverse C-sect ion Surgical History section x3 11/19/2012 Hospitalization History Childbirth
--- OUTSIDE RECORDS SUMMARY | 2023-08-07 11:01 | XMS REPORT ---
Author Author Rhoda Taylor Organization [facility] Address [address] [place] [address] Care Team Providers Care Employer Relations Representative Name Role Phone ROXANE Taylor Unavailable PROBLEMS Type Condition ICD9-CM Code PAI63-IC Code Onset Dates Condition Status SNOMED Code Problem Thrombocytopenia D69.6 Active 2238349 08 Problem Hyperpigmentation L81.9 Active 003107 09 ALLERGIES No Information ENCOUNTERS Encounter Location Date Diagnosis [facility] [address] [address] Nov, Dysuria R30.0 ; Pelvic mass R19.00 and Urinary tract infection without hematuria, site unspecified N39.0 [facility] [address] [address] Sep, Pelvic mass R19.00 and Dysuria R30.0 [place] [address] [address] Apr, [place] [address] [address] 14 Jan, 2018 Thrombocytopenia D69.6 [place] [address] [address] 13 Jan, 2018 Thrombocytopenia D69.6 and Hyperpigmentation L81.9 [place] [address] [address] 05 Jan, 2018 Skin lesion of face L98.9 [place] [address] [address] 02 Dec, 2017 Encounter for routine adult health examination with abnormal findings Z00.01 ; Hyperpigmentation L81.9 and Frequent headaches R51 [facility] [address] [place] [address] Dec, Encounter for routine adult health examination with abnormal findings Z00.01 ; Hyperpigmentation L81.9 and Frequent headaches R51 [facility] [address] [place] [id number] [place] [address] Nov, Scabies exposure Z20.89 [place] [address] [place] [id number] [place] [address] Nov, [place] [address] [place] [id number] [place] [address] Nov, Thrombocytopenia D69.6 ; examination following delivery Z39.2 ; LFT elevation R94.5 ; Hair loss L65.9 ; Encounter for initial prescription of injectable contraceptive Z30.013 and Hematochezia K92.1 [place] [address] [place] [id number] [place] [address] Nov, [place] [address] [place] [id number] [place] [address] Nov, [place] [address] [place] [id number] [place] [address] Oct, [place] [address] [place] [id number] [place] [address] Oct, [place] [address] [place] [id number] [place] [address] Sep, [place] [address] [place] [id number] [place] [address] Sep, Third trimester Z33.1 ; Thrombocytopenia D69.6 and 37 weeks gestation of Z3A.37 [place] [address] [place] [id number] [place] [address] Sep, screening for streptococcus B Z36 ; Third trimester Z33.1 and 36 weeks gestation of Z3A.36 [place] [address] [address] Sep, Glucose tolerance test abnormal R73.02 [place] [address] [place] [id number] [place] [address] Sep, [place] [address] [place] [id number] [place] [address] Sep, Third trimester Z33.1 ; Visual changes H53.9 ; 34 weeks gestation of Z3A.34 and Encounter for immunization Z23 [place] [address] [place] [id number] [place] [address] Sep, [place] [address] [place] [id number] [place] [address] Jul, Other diseases of the blood and blood-forming organs and certain disorders involving the immune mechanism complicating , second trimester O99.112 ; Thrombocytopenia, unspecified D69.6 ; S/P repeat low transverse Z98.89 ; Third trimester Z33.1 ; 29 weeks gestation of Z3A.29 and Encounter for immunization Z23 [place] [address] [place] [id number] [place] [address] May, Normal in multigravida in second trimester Z34.82 ; Late care affecting in second trimester O09.32 ; S/P repeat low transverse Z98.89 and 19 weeks gestation of Z3A.19 [place] [address] [place] [address] May, [facility] [address] [place] [address] May, Hematuria R31.9 ; Acute hemorrhoid K64.9 ; Headache, unspecified headache type R51 and , unspecified gestational age Z33.1 [place] [address] [place] [address] Jun, Unspecified high-risk V23.9 ; Unspecified thrombocytopenia 287.5 and Previous delivery, unspecified as to episode of care or not applicable 654.20 [place] [address] [address] Jun, Supervision of other normal V22.1 [place] [address] [place] [id number] [place] [address] May, Supervision of other normal V22.1 ; screening for streptococcus B V28.6 ; Gestational thrombocytopenia 649.30 and Anemia affecting 648.20 [place] [address] [place] [id number] [place] [address] May, [place] [address] [place] [id number] [place] [address] May, Unspecified high-risk V23.9 ; Gestational thrombocytopenia 649.30 and Diabetes mellitus screening V77.1 [place] [address] [place] [id number] [place] [address] Apr, Supervision of other normal V22.1 ; Screening for diabetes mellitus V77.1 ; TDAP DX V06.1 ; Previous delivery, unspecified as to episode of care or not applicable 654.20 and Gestational thrombocytopenia 649.30 [place] [address] [place] [address] March, Supervision of other normal V22.1 ; Gestational thrombocytopenia 649.30 and Previous delivery, unspecified as to episode of care or not applicable 654.20 [place] [address] [address] Feb, [place] [address] [address] Feb, [place] [id number] [place] [address] Jan, [place] [address] [address] Jan, [place] [address] [address] Jan, [facility] [place] [facility] [address] [id number] [place] [address] Jan, [facility] [place] [facility] [address] [id number] [place] [address] Jan, [facility] [place] [facility] [address] [id number] [place] [address] Dec, 2014 [facility] [place] [facility] [address] [id number] [place] [address] Dec, [facility] [place] [facility] [address] [id number] [place] [address] Dec, 2014 [facility] [place] [facility] [address] [facility] [id number] [place] [address] Dec, 2014 [facility] [place] [facility] [address] [facility] [id number] [place] [address] Dec, [facility] [place] [facility] [address] [facility] [id number] [place] [address] Dec, [facility] [place] [facility] [address] [facility] [id number] [place] [address] Dec, [facility] [place] [facility] [address] [facility] [id number] [place] [address] Dec, [facility] [place] [facility] [address] [facility] [id number] [address] Dec, 2014 [facility] [place] [facility] [address] [facility] [id number] [place] [address] 13 Dec, 2014 [facility] [place] [facility] [address] [facility] [id number] [place] [address] 12 Dec, 2014 [facility] [place] [facility] [address] [facility] [id number] [address] Dec, 2014 [facility] [place] [facility] [address] [facility] [id number] [address] Dec, [facility] [address] [facility] [id number] [address] Dec, [facility] [address] [place] [id number] [address] Nov, [facility] [address] [place] [id number] [address] Nov, [facility] [address] [address] Nov, [facility] [address] [place] [id number] [address] Nov, [facility] [address] [address] Nov, [facility] [address] [place] [id number] [address] Nov, [facility] [address] [place] [id number] [address] Nov, IMMUNIZATIONS No Known Immunizations SOCIAL HISTORY Never Assessed REASON FOR VISIT PLAN OF CARE VITAL SIGNS MEDICATIONS No Known Medications RESULTS No Results PROCEDURES No Known procedures INSTRUCTIONS MEDICATIONS ADMINISTERED No Known Medications MEDICAL (GENERAL) HISTORY Type Description Date Medical History Low white blood cells- Medical History high cholesterol Medical History S/P repeat low transverse C-sect ion Surgical History section x3 11/19/2012 Hospitalization History Childbirth
--- OUTSIDE RECORDS SUMMARY | 2023-08-07 11:01 | XMS REPORT ---
Author Author Rhoda Zayas Do ctor Organization [facility] Address Unknown Phone Unavailable Care Team Providers Care Manager Environmental Health Name Role Phone Migration, Doctor Unavailable Unavailable PROBLEMS Type Condition ICD9-CM Code [id number] Code Onset Dates Condition Status SNOMED Code Problem Thrombocytopenia D69.6 Active 3526993 08 Problem Hyperpigmentation L81.9 Active 240751 09 ALLERGIES No Information ENCOUNTERS Encounter Location Date Diagnosis [facility] IN [facility] [address] [address] Nov, Dysuria R30.0 ; Pelvic mass R19.00 and Urinary tract infection without hematuria, site unspecified N39.0 [facility] IN [facility] [address] [address] Sep, Pelvic mass R19.00 and Dysuria R30.0 [facility] [address] [address] Apr, [facility] [address] [address] 14 Jan, 2018 Thrombocytopenia D69.6 [place] [address] [address] Jan, Thrombocytopenia D69.6 and Hyperpigmentation L81.9 [place] [address] [address] 05 Jan, 2018 Skin lesion of face L98.9 [place] [address] [address] 02 Dec, 2017 Encounter for routine adult health examination with abnormal findings Z00.01 ; Hyperpigmentation L81.9 and Frequent headaches R51 [place] [address] [address] Dec, Encounter for routine adult health examination with abnormal findings Z00.01 ; Hyperpigmentation L81.9 and Frequent headaches R51 [address] [address] Nov, Scabies exposure Z20.[address] [address] Nov, [address] [address] Nov, Thrombocytopenia D69.6 ; examination following delivery Z39.2 ; LFT elevation R94.5 ; Hair loss L65.9 ; Encounter for initial prescription of injectable contraceptive Z30.013 and Hematochezia K92.[address] [address] Nov, [address] [address] Nov, [place] [address] [address] Oct, [address] [address] Oct, [address] [address] Sep, [address] [address] Sep, Third trimester Z33.1 ; Thrombocytopenia D69.6 and 37 weeks gestation of Z3A.[address] [address] Sep, screening for streptococcus B Z36 ; Third trimester Z33.1 and 36 weeks gestation of Z3A.36 [place] [id number] [place] [address] Sep, Glucose tolerance test abnormal R73.02 [place] [address] [place] [id number] [place] [address] Sep, [place] [id number] [place] [address] Sep, Third trimester Z33.1 ; Visual changes H53.9 ; 34 weeks gestation of Z3A.34 and Encounter for immunization Z23 [place] [id number] [place] [address] Sep, [place] [id number] [place] [address] Jul, Other diseases of the blood and blood-forming organs and certain disorders involving the immune mechanism complicating , second trimester O99.112 ; Thrombocytopenia, unspecified D69.6 ; S/P repeat low transverse Z98.89 ; Third trimester Z33.1 ; 29 weeks gestation of Z3A.29 and Encounter for immunization Z23 [place] [id number] [place] [address] May, Normal in multigravida in second trimester Z34.82 ; Late care affecting in second trimester O09.32 ; S/P repeat low transverse Z98.89 and 19 weeks gestation of Z3A.19 [place] [id number] [place] [address] May, [facility] [address] [place] [id number] [place] [address] May, Hematuria R31.9 ; Acute hemorrhoid K64.9 ; Headache, unspecified headache type R51 and , unspecified gestational age Z33.1 [place] [id number] [place] [address] Jun, Unspecified high-risk V23.9 ; Unspecified thrombocytopenia 287.5 and Previous delivery, unspecified as to episode of care or not applicable 654.[address] [place] [address] Jun, Supervision of other normal V22.1 [place] [address] [place] [id number] [place] [address] May, Supervision of other normal V22.1 ; screening for streptococcus B V28.6 ; Gestational thrombocytopenia 649.30 and Anemia affecting 648.20 [place] [address] [address] May, [place] [address] [place] [id number] [place] [address] May, Unspecified high-risk V23.9 ; Gestational thrombocytopenia 649.30 and Diabetes mellitus screening V77.1 [place] [address] [place] [id number] [place] [address] Apr, Supervision of other normal V22.1 ; Screening for diabetes mellitus V77.1 ; TDAP DX V06.1 ; Previous delivery, unspecified as to episode of care or not applicable 654.20 and Gestational thrombocytopenia 649.30 [place] [address] [place] [id number] [place] [address] March, Supervision of other normal V22.1 ; Gestational thrombocytopenia 649.30 and Previous delivery, unspecified as to episode of care or not applicable 654.20 [place] [id number] [place] [address] Feb, [place] [address] [place] [id number] [place] [address] Feb, [place] [address] [place] [id number] [place] [address] Jan, [place] [address] [place] [id number] [place] [address] Jan, [place] [address] [place] [id number] [place] [address] Jan, [place] [address] [id number] [place] [address] Jan, [facility] [place] [facility] [address] [id number] [place] [address] Jan, [facility] [place] [facility] [address] [id number] [place] [address] Dec, 2014 [facility] [place] [facility] [address] [id number] [place] [address] Dec, 2014 [facility] [place] [facility] [address] [id number] [place] [address] Dec, 2014 [facility] [place] [facility] [address] [id number] [place] [address] Dec, 2014 [facility] [place] [facility] [address] [facility] [id number] [place] [address] Dec, [facility] [place] [facility] [address] [facility] [id number] [place] [address] Dec, 2014 [facility] [place] [facility] [address] [facility] [id number] [place] [address] Dec, [facility] [place] [facility] [address] [facility] [id number] [place] [address] Dec, 2014 [facility] [place] [facility] [address] [facility] [id number] [place] [address] Dec, 2014 [facility] [place] [facility] [address] [facility] [id number] [place] [address] 13 Dec, 2014 [facility] [place] [facility] [address] [facility] [id number] [place] [address] 12 Dec, 2014 [facility] [place] [facility] [address] [facility] [id number] [place] [address] Dec, 2014 [facility] [place] [facility] [address] [facility] [id number] [place] [address] 10 Dec, 2014 [facility] [place] [facility] [address] [facility] [id number] [address] Dec, [facility] [address] [address] Nov, [facility] [address] [address] Nov, [facility] [address] [place] [id number] [address] Nov, [facility] [address] [place] [id number] [address] Nov, [facility] [address] [address] Nov, [facility] [address] [address] Nov, [facility] [address] [place] [id number] [address] Nov, IMMUNIZATIONS No Known Immunizations SOCIAL HISTORY Never Assessed REASON FOR VISIT [place] [place] VITAL SIGNS MEDICATIONS Medication Instructions Dosage Frequency Start Date End Date Duration Status Amoxicillin 500 mg take 1 capsule (500 mg) by oral route every 12 hours for 7 day(s) Dec, Active Zofran ODT 8 mg 1 tablet by Oral route every 8 hours PRN nausea or vomiting Nov, Active RESULTS No Results PROCEDURES No Known procedures INSTRUCTIONS MEDICATIONS ADMINISTERED No Known Medications MEDICAL (GENERAL) HISTORY Type Description Date Medical History Low white blood cells- Medical History high cholesterol Medical History S/P repeat low transverse C-sect ion Surgical History section x3 11/19/2012 Hospitalization History Childbirth
--- OUTSIDE RECORDS SUMMARY | 2023-08-07 11:01 | XMS REPORT ---
Author Author Rhoda JACOBSEN [facility] Address [address] [place] [address] Care Team Providers Care Radar Air Traffic Controller Name Role Phone RAMA JACOBSEN Unavailable PROBLEMS ALLERGIES No Information ENCOUNTERS IMMUNIZATIONS No Known Immunizations SOCIAL HISTORY No smoking Hx information available REASON FOR VISIT PLAN OF CARE VITAL SIGNS MEDICATIONS Unknown Medications RESULTS No Results PROCEDURES No Known procedures INSTRUCTIONS MEDICATIONS ADMINISTERED No Known Medications MEDICAL (GENERAL) HISTORY
--- OUTSIDE RECORDS SUMMARY | 2023-08-07 11:01 | XMS REPORT ---
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 Name Role Phone ROXANE Taylor Unavailable PROBLEMS Type Condition ICD9-CM Code [id number] Code Onset Dates Condition Status SNOMED Code Problem Thrombocytopenia D69.6 Active 4791693 08 Problem Hyperpigmentation L81.9 Active 129039 09 ALLERGIES No Information ENCOUNTERS Encounter Location Date Diagnosis [facility] IN [facility] [address] [address] Nov, Dysuria R30.0 ; Pelvic mass R19.00 and Urinary tract infection without hematuria, site unspecified N39.0 [facility] [address] [address] Sep, Pelvic mass R19.00 and Dysuria R30.0 [place] [address] [address] Apr, [place] [address] [address] 14 Jan, 2018 Thrombocytopenia D69.6 [place] [address] [address] 13 Jan, 2018 Thrombocytopenia D69.6 and Hyperpigmentation L81.9 [place] [address] [address] 05 Jan, 2018 Skin lesion of face L98.9 [place] [address] [address] 02 Dec, 2017 Encounter for routine adult health examination with abnormal findings Z00.01 ; Hyperpigmentation L81.9 and Frequent headaches R51 [facility] [address] [place] [address] Dec, Encounter for routine adult health examination with abnormal findings Z00.01 ; Hyperpigmentation L81.9 and Frequent headaches R51 [facility] [address] [place] [id number] [place] [address] Nov, Scabies exposure Z20.89 [place] [address] [place] [id number] [place] [address] Nov, [place] [address] [place] [id number] [place] [address] Nov, Thrombocytopenia D69.6 ; examination following delivery Z39.2 ; LFT elevation R94.5 ; Hair loss L65.9 ; Encounter for initial prescription of injectable contraceptive Z30.013 and Hematochezia K92.1 [place] [address] [place] [id number] [place] [address] Nov, [place] [address] [place] [id number] [place] [address] Nov, [place] [address] [place] [id number] [place] [address] Oct, [place] [address] [place] [id number] [place] [address] Oct, [place] [address] [place] [id number] [place] [address] Sep, [place] [address] [place] [id number] [place] [address] Sep, Third trimester Z33.1 ; Thrombocytopenia D69.6 and 37 weeks gestation of Z3A.37 [place] [address] [place] [id number] [place] [address] Sep, screening for streptococcus B Z36 ; Third trimester Z33.1 and 36 weeks gestation of Z3A.36 [place] [address] [address] Sep, Glucose tolerance test abnormal R73.02 [place] [address] [place] [id number] [place] [address] Sep, [place] [address] [place] [id number] [place] [address] Sep, Third trimester Z33.1 ; Visual changes H53.9 ; 34 weeks gestation of Z3A.34 and Encounter for immunization Z23 [place] [address] [place] [id number] [place] [address] Sep, [place] [address] [place] [id number] [place] [address] Jul, Other diseases of the blood and blood-forming organs and certain disorders involving the immune mechanism complicating , second trimester O99.112 ; Thrombocytopenia, unspecified D69.6 ; S/P repeat low transverse Z98.89 ; Third trimester Z33.1 ; 29 weeks gestation of Z3A.29 and Encounter for immunization Z23 [place] [address] [place] [id number] [place] [address] May, Normal in multigravida in second trimester Z34.82 ; Late care affecting in second trimester O09.32 ; S/P repeat low transverse Z98.89 and 19 weeks gestation of Z3A.19 [place] [address] [place] [address] May, [facility] [address] [place] [address] May, Hematuria R31.9 ; Acute hemorrhoid K64.9 ; Headache, unspecified headache type R51 and , unspecified gestational age Z33.1 [place] [address] [place] [address] Jun, Unspecified high-risk V23.9 ; Unspecified thrombocytopenia 287.5 and Previous delivery, unspecified as to episode of care or not applicable 654.20 [place] [address] [address] Jun, Supervision of other normal V22.1 [place] [address] [place] [id number] [place] [address] May, Supervision of other normal V22.1 ; screening for streptococcus B V28.6 ; Gestational thrombocytopenia 649.30 and Anemia affecting 648.20 [place] [address] [place] [id number] [place] [address] May, [place] [address] [place] [id number] [place] [address] May, Unspecified high-risk V23.9 ; Gestational thrombocytopenia 649.30 and Diabetes mellitus screening V77.1 [place] [address] [place] [id number] [place] [address] Apr, Supervision of other normal V22.1 ; Screening for diabetes mellitus V77.1 ; TDAP DX V06.1 ; Previous delivery, unspecified as to episode of care or not applicable 654.20 and Gestational thrombocytopenia 649.30 [place] [address] [place] [address] March, Supervision of other normal V22.1 ; Gestational thrombocytopenia 649.30 and Previous delivery, unspecified as to episode of care or not applicable 654.20 [place] [address] [address] Feb, [place] [address] [address] Feb, [place] [address] [place] [address] Jan, [place] [address] [address] Jan, [place] [address] [place] [address] Jan, [facility] [place] [facility] [address] [id number] [place] [address] Jan, [facility] [place] [facility] [address] [id number] [place] [address] Jan, [facility] [place] [facility] [address] [id number] [place] [address] Dec, 2014 [facility] [place] [facility] [address] [id number] [place] [address] Dec, [facility] [place] [facility] [address] [id number] [place] [address] Dec, 2014 [facility] [place] [facility] [address] [facility] [id number] [place] [address] Dec, 2014 [facility] [place] [facility] [address] [facility] [id number] [place] [address] Dec, [facility] [place] [facility] [address] [facility] [id number] [place] [address] Dec, [facility] [place] [facility] [address] [facility] [id number] [place] [address] Dec, [facility] [place] [facility] [address] [facility] [id number] [place] [address] Dec, [facility] [place] [facility] [address] [facility] [id number] [address] Dec, 2014 [facility] [place] [facility] [address] [facility] [id number] [place] [address] 13 Dec, 2014 [facility] [place] [facility] [address] [facility] [id number] [place] [address] 12 Dec, 2014 [facility] [place] [facility] [address] [facility] [id number] [address] Dec, 2014 [facility] [place] [facility] [address] [facility] [id number] [address] Dec, [facility] [address] [facility] [id number] [address] Dec, [facility] [address] [facility] [id number] [address] Nov, [facility] [address] [facility] [id number] [address] Nov, [facility] [address] [facility] [id number] [address] Nov, [facility] [address] [facility] [id number] [address] Nov, [facility] [address] [place] [id number] [address] Nov, [facility] [address] [place] [id number] [address] Nov, [facility] [address] [facility] [id number] [address] Nov, IMMUNIZATIONS No Known Immunizations SOCIAL HISTORY Never Assessed REASON FOR VISIT PLAN OF CARE VITAL SIGNS Height 65 in 2015-01-06 Weight 136.6 lbs 2015-01-06 Temperature 97.7 degrees Fahrenheit Blood pressure systolic 102 mmHg Blood pressure diastolic 68 mmHg 2014-12 MEDICATIONS No Known Medications RESULTS No Results PROCEDURES Procedure Date Ordered Result Body Site TRICHOMONAS VAGIN, DIR PROBE Jan 06, 2015 COMPLETE CBC W/AUTO DIFF WBC Jan 06, 2015 SCR PAP SMER;NEW PT OBTAIN PREP&CONVY-LAB Jan 06, 2015 CYTOPATH C/V AUTO FLUID REDO Jan 06, 2015 CHYLMD TRACH, DNA, AMP PROBE Jan 06, 2015 URINE CULTURE/COLONY COUNT Jan 06, 2015 CULTURE, BACTERIA, OTHER Jan 06, 2015 URINALYSIS, AUTO, W/O SCOPE Jan 06, 2015 VENIPUNCT, ROUTINE* Jan 06, 2015 INSTRUCTIONS MEDICATIONS ADMINISTERED No Known Medications MEDICAL (GENERAL) HISTORY Type Description Date Medical History Low white blood cells- Medical History high cholesterol Medical History S/P repeat low transverse C-sect ion Surgical History section x3 11/19/2012 Hospitalization History Childbirth
--- OUTSIDE RECORDS SUMMARY | 2023-08-07 11:01 | XMS REPORT ---
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 Name Role Phone Migration, Doctor Unavailable Unavailable PROBLEMS Type Condition ICD9-CM Code [id number] Code Onset Dates Condition Status SNOMED Code Problem Thrombocytopenia D69.6 Active 5827583 08 Problem Hyperpigmentation L81.9 Active 713746 09 ALLERGIES No Information ENCOUNTERS Encounter Location Date Diagnosis [facility] IN [facility] [address] [address] Nov, Dysuria R30.0 ; Pelvic mass R19.00 and Urinary tract infection without hematuria, site unspecified N39.0 [facility] IN [facility] [address] [address] Sep, Pelvic mass R19.00 and Dysuria R30.0 [facility] [address] [address] Apr, [facility] [address] [address] 14 Jan, 2018 Thrombocytopenia D69.6 [place] [address] [address] Jan, Thrombocytopenia D69.6 and Hyperpigmentation L81.9 [place] [address] [address] 05 Jan, 2018 Skin lesion of face L98.9 [place] [address] [address] 02 Dec, 2017 Encounter for routine adult health examination with abnormal findings Z00.01 ; Hyperpigmentation L81.9 and Frequent headaches R51 [place] [address] [address] Dec, Encounter for routine adult health examination with abnormal findings Z00.01 ; Hyperpigmentation L81.9 and Frequent headaches R51 [address] [address] Nov, Scabies exposure Z20.[address] [address] Nov, [address] [address] Nov, Thrombocytopenia D69.6 ; examination following delivery Z39.2 ; LFT elevation R94.5 ; Hair loss L65.9 ; Encounter for initial prescription of injectable contraceptive Z30.013 and Hematochezia K92.[address] [address] Nov, [address] [address] Nov, [place] [address] [address] Oct, [address] [address] Oct, [address] [address] Sep, [address] [address] Sep, Third trimester Z33.1 ; Thrombocytopenia D69.6 and 37 weeks gestation of Z3A.[address] [address] Sep, screening for streptococcus B Z36 ; Third trimester Z33.1 and 36 weeks gestation of Z3A.36 [place] [id number] [place] [address] Sep, Glucose tolerance test abnormal R73.02 [place] [address] [place] [id number] [place] [address] Sep, [place] [id number] [place] [address] Sep, Third trimester Z33.1 ; Visual changes H53.9 ; 34 weeks gestation of Z3A.34 and Encounter for immunization Z23 [place] [id number] [place] [address] Sep, [place] [id number] [place] [address] Jul, Other diseases of the blood and blood-forming organs and certain disorders involving the immune mechanism complicating , second trimester O99.112 ; Thrombocytopenia, unspecified D69.6 ; S/P repeat low transverse Z98.89 ; Third trimester Z33.1 ; 29 weeks gestation of Z3A.29 and Encounter for immunization Z23 [place] [id number] [place] [address] May, Normal in multigravida in second trimester Z34.82 ; Late care affecting in second trimester O09.32 ; S/P repeat low transverse Z98.89 and 19 weeks gestation of Z3A.19 [place] [id number] [place] [address] May, [facility] [address] [place] [id number] [place] [address] May, Hematuria R31.9 ; Acute hemorrhoid K64.9 ; Headache, unspecified headache type R51 and , unspecified gestational age Z33.1 [place] [id number] [place] [address] Jun, Unspecified high-risk V23.9 ; Unspecified thrombocytopenia 287.5 and Previous delivery, unspecified as to episode of care or not applicable 654.[address] [place] [address] Jun, Supervision of other normal V22.1 [place] [address] [place] [id number] [place] [address] May, Supervision of other normal V22.1 ; screening for streptococcus B V28.6 ; Gestational thrombocytopenia 649.30 and Anemia affecting 648.20 [place] [address] [address] May, [place] [address] [place] [id number] [place] [address] May, Unspecified high-risk V23.9 ; Gestational thrombocytopenia 649.30 and Diabetes mellitus screening V77.1 [place] [address] [place] [id number] [place] [address] Apr, Supervision of other normal V22.1 ; Screening for diabetes mellitus V77.1 ; TDAP DX V06.1 ; Previous delivery, unspecified as to episode of care or not applicable 654.20 and Gestational thrombocytopenia 649.30 [place] [address] [place] [id number] [place] [address] March, Supervision of other normal V22.1 ; Gestational thrombocytopenia 649.30 and Previous delivery, unspecified as to episode of care or not applicable 654.20 [place] [address] [place] [address] Feb, [place] [address] [place] [id number] [place] [address] Feb, [place] [address] [place] [id number] [place] [address] Jan, [place] [address] [place] [id number] [place] [address] Jan, [place] [address] [place] [id number] [place] [address] Jan, [place] [address] [id number] [place] [address] Jan, [facility] [place] [facility] [address] [id number] [place] [address] Jan, [facility] [place] [facility] [address] [id number] [place] [address] Dec, 2014 [facility] [place] [facility] [address] [id number] [place] [address] Dec, 2014 [facility] [place] [facility] [address] [id number] [place] [address] Dec, 2014 [facility] [place] [facility] [address] [id number] [place] [address] Dec, 2014 [facility] [place] [facility] [address] [facility] [id number] [place] [address] Dec, [facility] [place] [facility] [address] [facility] [id number] [place] [address] Dec, 2014 [facility] [place] [facility] [address] [facility] [id number] [place] [address] Dec, [facility] [place] [facility] [address] [facility] [id number] [place] [address] Dec, 2014 [facility] [place] [facility] [address] [facility] [id number] [place] [address] Dec, 2014 [facility] [place] [facility] [address] [facility] [id number] [place] [address] 13 Dec, 2014 [facility] [place] [facility] [address] [facility] [id number] [place] [address] 12 Dec, 2014 [facility] [place] [facility] [address] [facility] [id number] [place] [address] Dec, 2014 [facility] [place] [facility] [address] [facility] [id number] [place] [address] 10 Dec, 2014 [facility] [place] [facility] [address] [place] [id number] [address] Dec, [facility] [address] [address] Nov, [facility] [address] [address] Nov, [facility] [address] [address] Nov, [facility] [address] [address] Nov, [facility] [address] [address] Nov, [facility] [address] [address] Nov, [facility] [address] [address] Nov, IMMUNIZATIONS No Known Immunizations SOCIAL HISTORY Never Assessed REASON FOR VISIT [facility] [place]ARE VITAL SIGNS MEDICATIONS No Known Medications RESULTS No Results PROCEDURES No Known procedures INSTRUCTIONS MEDICATIONS ADMINISTERED No Known Medications MEDICAL (GENERAL) HISTORY Type Description Date Medical History Low white blood cells- Medical History high cholesterol Medical History S/P repeat low transverse C-sect ion Surgical History section x3 11/19/2012 Hospitalization History Childbirth
--- OUTSIDE RECORDS SUMMARY | 2023-08-07 11:01 | XMS REPORT ---
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 Role Phone ISSA HOLLINS CP Unavailable Allergies No Known Allergies Problems Problem Type Condition Code Onset Dates Condition S tatus Assessment 36 weeks gestation of Z3A.36 Active Problem Normal in multigravida in second trimester Z34.82 Active Problem Late care a ffecting in second trimester O09.32 Active Problem Third trimester Z33.1 Active Assessment screening for streptococcus B Z36 Active Assessment Third trimester Z33.1 Active Problem S/P repeat low transverse Z98.89 Active Problem Thrombocytopenia D69.6 Active Medications Medication Code System Code Instructions Start Date End Date Status Dosage One Daily [facility] 05597-36 131 27-0.8 MG Orally not defined Iron [facility] 62528-30 126 325 (65 Fe) MG Orally Once a day Oct 06, 2016 1 tablet Procedures Procedure Coding System Code Date DETECT AGNT MULT, DNA, AMPLI CPT-4 56773 Oct 13, 2016 Office Visit, Est Pt., Level 2 CPT-4 00104 Oct 13, 2016 URINE-NO MICRO CPT-4 84662 Oct 13, 2016 Vital Signs Date/Time: Oct 13, 2016 Cardiac Monitoring Heart Rate 82 bpm Weight 172.8 lbs Height 65 in BMI 28.755 Index Blood Pressure Diastolic 70 mmHg Blood Pressure Systolic 116 mmHg Results Name Result Date Reference Range Unit Abno rmality Flag UA OB DIP (IN HOUSE) ----Glucose neg [id number] ----Protein trace [id number] CULTURE, GROUP B STREP (VAGINAL) ----Strep Gp B Culture Negative [id number] Negative Summary Purpose [employer] Submission
--- OUTSIDE RECORDS SUMMARY | 2023-08-07 11:01 | XMS REPORT ---
Author Author Rhoda JACOBSEN [facility] Address [address] [place] [address] Care Team Providers Care Budget Clerk Name Role Phone RAMA JACOBSEN Unavailable PROBLEMS Type Condition ICD9-CM Code [id number] Code Onset Dates Condition Status SNOMED Code Problem Thrombocytopenia D69.6 Active 1927436 08 Problem Hyperpigmentation L81.9 Active 063601 09 ALLERGIES No Information ENCOUNTERS Encounter Location Date Diagnosis [facility] [place] [address] [address] Nov, Dysuria R30.0 ; Pelvic mass R19.00 and Urinary tract infection without hematuria, site unspecified N39.0 [facility] [place] [address] [address] Sep, Pelvic mass R19.00 and Dysuria R30.0 [place] [address] [address] Apr, [place] [address] [address] 14 Jan, 2018 Thrombocytopenia D69.6 [place] [address] [address] 13 Jan, 2018 Thrombocytopenia D69.6 and Hyperpigmentation L81.9 [place] [address] [address] 05 Jan, 2018 Skin lesion of face L98.9 [place] [address] [address] 02 Dec, 2017 Encounter for routine adult health examination with abnormal findings Z00.01 ; Hyperpigmentation L81.9 and Frequent headaches R51 [place] [address] [place] [id number] [place] [address] Dec, Encounter for routine adult health examination with abnormal findings Z00.01 ; Hyperpigmentation L81.9 and Frequent headaches R51 [place] [address] [place] [id number] [place] [address] Nov, Scabies exposure Z20.89 [place] [address] [place] [id number] [place] [address] Nov, [place] [address] [address] Nov, Thrombocytopenia D69.6 ; examination following delivery Z39.2 ; LFT elevation R94.5 ; Hair loss L65.9 ; Encounter for initial prescription of injectable contraceptive Z30.013 and Hematochezia K92.1 [place] [address] [place] [id number] [place] [address] Nov, [place] [address] [place] [id number] [place] [address] Nov, [place] [address] [place] [id number] [place] [address] Oct, [place] [address] [place] [id number] [place] [address] Oct, [place] [address] [place] [id number] [place] [address] Sep, [place] [address] [place] [id number] [place] [address] Sep, Third trimester Z33.1 ; Thrombocytopenia D69.6 and 37 weeks gestation of Z3A.37 [place] [address] [place] [id number] [place] [address] Sep, screening for streptococcus B Z36 ; Third trimester Z33.1 and 36 weeks gestation of Z3A.36 [place] [address] [place] [id number] [place] [address] Sep, Glucose tolerance test abnormal R73.02 [place] [address] [place] [id number] [place] [address] Sep, [place] [address] [place] [id number] [place] [address] Sep, Third trimester Z33.1 ; Visual changes H53.9 ; 34 weeks gestation of Z3A.34 and Encounter for immunization Z23 [place] [address] [place] [id number] [place] [address] Sep, [place] [id number] [place] [address] Jul, Other diseases of the blood and blood-forming organs and certain disorders involving the immune mechanism complicating , second trimester O99.112 ; Thrombocytopenia, unspecified D69.6 ; S/P repeat low transverse Z98.89 ; Third trimester Z33.1 ; 29 weeks gestation of Z3A.29 and Encounter for immunization Z23 [place] [address] [place] [id number] [place] [address] May, Normal in multigravida in second trimester Z34.82 ; Late care affecting in second trimester O09.32 ; S/P repeat low transverse Z98.89 and 19 weeks gestation of Z3A.19 [place] [address] [place] [id number] [place] [address] May, [facility] [address] [place] [id number] [place] [address] May, Hematuria R31.9 ; Acute hemorrhoid K64.9 ; Headache, unspecified headache type R51 and , unspecified gestational age Z33.1 [place] [address] [place] [address] Jun, Unspecified high-risk V23.9 ; Unspecified thrombocytopenia 287.5 and Previous delivery, unspecified as to episode of care or not applicable 654.20 [place] [address] [address] Jun, Supervision of other normal V22.1 [place] [address] [place] [id number] [place] [address] May, Supervision of other normal V22.1 ; screening for streptococcus B V28.6 ; Gestational thrombocytopenia 649.30 and Anemia affecting 648.20 [place] [address] [place] [id number] [place] [address] May, [place] [address] [place] [id number] [place] [address] May, Unspecified high-risk V23.9 ; Gestational thrombocytopenia 649.30 and Diabetes mellitus screening V77.1 [place] [address] [place] [id number] [place] [address] Apr, Supervision of other normal V22.1 ; Screening for diabetes mellitus V77.1 ; TDAP DX V06.1 ; Previous delivery, unspecified as to episode of care or not applicable 654.20 and Gestational thrombocytopenia 649.30 [place] [address] [place] [id number] [place] [address] March, Supervision of other normal V22.1 ; Gestational thrombocytopenia 649.30 and Previous delivery, unspecified as to episode of care or not applicable 654.20 [place] [address] [place] [address] Feb, [place] [address] [place] [address] Feb, [place] [address] [place] [id number] [place] [address] Jan, [place] [address] [place] [id number] [place] [address] Jan, [place] [address] [place] [id number] [place] [address] Jan, [facility] [place] [facility] [address] [id number] [place] [address] Jan, [facility] [place] [facility] [address] [id number] [place] [address] Jan, [facility] [place] [facility] [address] [facility] [id number] [place] [address] Dec, 2014 [facility] [place] [facility] [address] [id number] [place] [address] Dec, 2014 [facility] [place] [facility] [address] [id number] [place] [address] Dec, 2014 [facility] [place] [facility] [address] [facility] [id number] [place] [address] Dec, 2014 [facility] [place] [facility] [address] [facility] [id number] [place] [address] Dec, 2014 [facility] [place] [facility] [address] [facility] [id number] [place] [address] 2014 [facility] [place] [facility] [address] [facility] [id number] [place] [address] 20 Dec, 2014 [facility] [place] [facility] [address] [facility] [id number] [place] [address] Dec, 2014 [facility] [place] [facility] [address] [facility] [id number] [place] [address] Dec, 2014 [facility] [place] [facility] [address] [facility] [id number] [place] [address] 13 Dec, 2014 [facility] [place] [facility] [address] [facility] [id number] [place] [address] 12 Dec, 2014 [facility] [place] [facility] [address] [facility] [id number] [place] [address] 11 Dec, 2014 [facility] [place] [facility] [address] [facility] [id number] [address] Dec, [facility] [address] [facility] [id number] [address] Dec, [facility] [address] [facility] [id number], [place] [address] Nov, [facility] [address] [facility] [id number] [address] Nov, [facility] [address] [facility] [id number], [place] [address] Nov, [facility] [address] [facility] [id number] [address] Nov, [facility] [address] [facility] [id number], [place] [address] Nov, [facility] [address] [facility] [id number] [address] Nov, [facility] [address] [facility] [id number] [address] Nov, IMMUNIZATIONS No Known Immunizations SOCIAL HISTORY Never Assessed REASON FOR VISIT PLAN OF CARE VITAL SIGNS Height 65 in 2015-02-02 Weight 132 lbs 2015-02-02 Temperature 97 degrees Fahrenheit 2015-02-02 Blood pressure systolic 100 mmHg Blood pressure diastolic 70 mmHg 2015-01 MEDICATIONS No Known Medications RESULTS No Results PROCEDURES Procedure Date Ordered Result Body Site URINE CULTURE/COLONY COUNT February 02, 2015 URINE-NO MICRO February 02, 2015 INSTRUCTIONS MEDICATIONS ADMINISTERED No Known Medications MEDICAL (GENERAL) HISTORY Type Description Date Medical History Low white blood cells- Medical History high cholesterol Medical History S/P repeat low transverse C-sect ion Surgical History section x3 11/19/2012 Hospitalization History Childbirth
--- OUTSIDE RECORDS SUMMARY | 2023-08-07 11:02 | XMS REPORT ---
Author Author Rhoda MCDONNELL Organization [facility] C Address [address] [place] [address] Care Team Providers Care Sandwich Hand Name Role Phone SUSIE MCDONNELL Unavailable PROBLEMS Type Condition ICD9-CM Code [id number] Code Onset Dates Condition Status SNOMED Code Problem Hyperpigmentation L81.9 Active 240739 09 Problem S/P repeat low transverse Z98.89 Active 8487069 06 Problem Thrombocytopenia D69.6 Active 9073118 08 ALLERGIES No Information ENCOUNTERS Encounter Location Date Diagnosis [place] [address] [address] Apr, [place] [address] [address] 14 Jan, 2018 Thrombocytopenia D69.6 [place] [address] [address] 13 Jan, 2018 Thrombocytopenia D69.6 and Hyperpigmentation L81.9 [place] [address] [address] 05 Jan, 2018 Skin lesion of face L98.9 [place] [address] [address] 02 Dec, 2017 Encounter for routine adult health examination with abnormal findings Z00.01 ; Hyperpigmentation L81.9 and Frequent headaches R51 [place] [address] [address] Dec, Encounter for routine adult health examination with abnormal findings Z00.01 ; Hyperpigmentation L81.9 and Frequent headaches R51 [place] [address] [address] Nov, Scabies exposure Z20.89 [facility] [address] [place] [id number] [place] [address] Nov, [facility] [address] [address] Nov, Thrombocytopenia D69.6 ; examination following delivery Z39.2 ; LFT elevation R94.5 ; Hair loss L65.9 ; Encounter for initial prescription of injectable contraceptive Z30.013 and Hematochezia K92.1 [place] [address] [place] [id number] [place] [address] Nov, [place] [address] [address] Nov, [place] [address] [address] Oct, [place] [address] [address] Oct, [facility] [address] [place] [id number] [place] [address] Sep, [place] [address] [place] [id number] [place] [address] Sep, Third trimester Z33.1 ; Thrombocytopenia D69.6 and 37 weeks gestation of Z3A.37 [place] [address] [place] [id number] [place] [address] Sep, screening for streptococcus B Z36 ; Third trimester Z33.1 and 36 weeks gestation of Z3A.36 [place] [address] [place] [id number] [place] [address] Sep, Glucose tolerance test abnormal R73.02 [place] [address] [place] [id number] [place] [address] Sep, [place] [address] [address] Sep, Third trimester Z33.1 ; Visual changes H53.9 ; 34 weeks gestation of Z3A.34 and Encounter for immunization Z23 [facility] [address] [place] [id number] [place] [address] Sep, [facility] [address] [place] [id number] [place] [address] Jul, Other diseases of the blood and blood-forming organs and certain disorders involving the immune mechanism complicating , second trimester O99.112 ; Thrombocytopenia, unspecified D69.6 ; S/P repeat low transverse Z98.89 ; Third trimester Z33.1 ; 29 weeks gestation of Z3A.29 and Encounter for immunization Z23 [place] [address] [place] [id number] [place] [address] May, Normal in multigravida in second trimester Z34.82 ; Late care affecting in second trimester O09.32 ; S/P repeat low transverse Z98.89 and 19 weeks gestation of Z3A.19 [place] [address] [place] [id number] [place] [address] May, [facility] [address] [place] [id number] [place] [address] May, Hematuria R31.9 ; Acute hemorrhoid K64.9 ; Headache, unspecified headache type R51 and , unspecified gestational age Z33.1 [place] [address] [place] [id number] [place] [address] Jun, Unspecified high-risk V23.9 ; Unspecified thrombocytopenia 287.5 and Previous delivery, unspecified as to episode of care or not applicable 654.20 [place] [address] [place] [id number] [place] [address] Jun, Supervision of other normal V22.1 [place] [address] [place] [id number] [place] [address] May, Supervision of other normal V22.1 ; screening for streptococcus B V28.6 ; Gestational thrombocytopenia 649.30 and Anemia affecting 648.20 [facility] [address] [place] [id number] [place] [address] May, [facility] [address] [place] [id number] [place] [address] May, Unspecified high-risk V23.9 ; Gestational thrombocytopenia 649.30 and Diabetes mellitus screening V77.1 [facility] [address] [place] [id number] [place] [address] Apr, Supervision of other normal V22.1 ; Screening for diabetes mellitus V77.1 ; TDAP DX V06.1 ; Previous delivery, unspecified as to episode of care or not applicable 654.20 and Gestational thrombocytopenia 649.30 [place] [address] [place] [id number] [place] [address] March, Supervision of other normal V22.1 ; Gestational thrombocytopenia 649.30 and Previous delivery, unspecified as to episode of care or not applicable 654.20 [facility] [address] [place] [id number] [place] [address] Feb, [facility] [address] [place] [id number] [place] [address] Feb, [facility] [address] [place] [id number] [place] [address] Jan, [facility] [address] [place] [id number] [place] [address] Jan, [facility] [address] [place] [id number] [place] [address] Jan, [facility] [address] [place] [id number] [place] [address] Jan, [facility] [address] [place] [id number] [place] [address] Jan, [facility] [place] [facility] [address] [id number] [place] [address] Dec, 2014 [facility] [place] [facility] [address] [id number] [place] [address] Dec, 2014 [facility] [place] [facility] [address] [id number] [place] [address] Dec, 2014 [facility] [place] [facility] [address] [facility] [id number] [place] [address] Dec, 2014 [facility] [place] [facility] [address] [id number] [place] [address] Dec, [facility] [place] [facility] [address] [id number] [place] [address] Dec, 2014 [facility] [place] [facility] [address] [facility] [id number] [place] [address] 20 Dec, 2014 [facility] [place] [facility] [address] [facility] [id number] [place] [address] Dec, 2014 [facility] [place] [facility] [address] [id number] [place] [address] Dec, 2014 [facility] [place] [facility] [address] [facility] [id number] [place] [address] 13 Dec, 2014 [facility] [place] [facility] [address] [facility] [id number] [place] [address] Dec, 2014 [facility] [place] [facility] [address] [facility] [id number] [place] [address] Dec, 2014 [facility] [place] [facility] [address] [id number] [place] [address] Dec, 2014 [facility] [place] [facility] [address] [facility] [id number] [place] [address] Dec, 2014 [facility] [place] [facility] [address] [facility] [id number] [place] [address] Nov, [facility] [place] [facility] [address] [place] [id number] [address] Nov, [facility] [address] [place] [id number] [address] Nov, [facility] [address] [place] [address] Nov, [facility] [address] [place] [id number] [address] Nov, [facility] [address] [place] [address] Nov, [facility] [address] [place] [address] Nov, IMMUNIZATIONS No Known Immunizations SOCIAL HISTORY Never Assessed REASON FOR VISIT Lab (walk-in) PLAN OF CARE VITAL SIGNS MEDICATIONS Unknown Medications RESULTS No Results PROCEDURES Procedure Date Ordered Result Body Site COMPLEMENT, TOTAL (CH50) February 07, 2018 C-REACTIVE PROTEIN February 07, 2018 ANTINUCLEAR ANTIBODIES February 07, 2018 RBC SED RATE, AUTOMATED February 07, 2018 CARDIOLIPINS ABS (67219 X 2) February 07, 2018 INSTRUCTIONS MEDICATIONS ADMINISTERED No Known Medications MEDICAL (GENERAL) HISTORY Type Description Date Medical History Low white blood cells- Medical History high cholesterol Surgical History section x2 11/19/2012 Hospitalization History Childbirth
--- OUTSIDE RECORDS SUMMARY | 2023-08-07 11:02 | XMS REPORT ---
Author Author Rhoda HOLLINS Organization [facility] Address [address] [place] [address] Care Team Providers Care Diesel Power Shovel Operator Name Role Phone GUNJAN ISSA Unavailable PROBLEMS Type Condition ICD9-CM Code QNX61-KG Code Onset Dates Condition Status SNOMED Code Assessment Encounter for immunization Z23 Jul, Active 605492742 Assessment Thrombocytopenia, unspecified D69.6 Jul, Active 189419302 Assessment 29 weeks gestation of Z3A.29 Jul, Active 50828208 Problem Third trimester Z33.1 Active 40762542 Problem Normal in multigravida in second trimester Z34.82 Active 53623211 Problem Thrombocytopenia D69.6 Active 2755451 08 Assessment Other diseases of the blood and blood-forming organs and certain disorders involving the immune mechanism complicating , second trimester O99.112 Jul, Active 617058036 Problem Late care affecting in second trimester O09.32 Active 07434961 7 Problem S/P repeat low transverse Z98.89 Active 1341456 06 ALLERGIES Unknown Allergies SOCIAL HISTORY No smoking Hx information available PLAN OF CARE VITAL SIGNS Height 65 in 2016-08-17 Weight 163.6 lbs 2016-08-17 Heart Rate 80 bpm 2016-08-17 Respiratory Rate 18 2016-08-17 BMI 27.224 kg/m2 2016-08-17 Blood pressure systolic 120 mmHg Blood pressure diastolic 76 mmHg 2016-07 MEDICATIONS Unknown Medications RESULTS Name Result Date Reference Range UA OB DIP (IN HOUSE) 2016-08-17 Glucose negative Protein trace PROCEDURES Procedure Date Ordered Related Diagnosis Body Site URINE-NO MICRO Aug 17, 2016 Office Visit, Est Pt., Level 2 Aug 17, 2016 SINGLE IMMUNIZATION ADMIN Aug 17, 2016 FLUARIX QUAD P-FREE 3 AND UP .50 2015Aug 17, 2016 IMMUNIZATIONS Vaccine Route Administration Date Status FLUARIX QUAD P-FREE 3 AND UP .50 2015 IM Intramuscular Aug 17, 2016 Administered
--- OUTSIDE RECORDS SUMMARY | 2023-08-07 11:02 | XMS REPORT ---
Author Author Rhoda HOLLINS Organization [facility] Address [address] [place] [address] Care Team Providers Care Agricultural Extension Educator Name Role Phone ISSA HOLLINS Unavailable PROBLEMS Type Condition ICD9-CM Code QXW35-DR Code Onset Dates Condition Status SNOMED Code Problem S/P repeat low transverse Z98.89 Active 4985129 06 Problem Thrombocytopenia D69.6 Active 8821536 08 ALLERGIES Unknown Allergies SOCIAL HISTORY No smoking Hx information available PLAN OF CARE VITAL SIGNS MEDICATIONS Unknown Medications RESULTS No Results PROCEDURES No Known procedures IMMUNIZATIONS No Known Immunizations
--- OUTSIDE RECORDS SUMMARY | 2023-08-07 11:02 | XMS REPORT ---
Author Author Rhoda HOLLISN Organization [facility] [place] [facility] Address [address] [place] [address] Care Team Providers Care Freight Clerk Name Role Phone GUNJAN ISSA Unavailable PROBLEMS Type Condition ICD9-CM Code ZJP50-KW Code Onset Dates Condition Status SNOMED Code Assessment 37 weeks gestation of Z3A.37 Sep, Active 54468953 Problem Third trimester Z33.1 Active 57576746 Problem Normal in multigravida in second trimester Z34.82 Active 91166102 Problem Thrombocytopenia D69.6 Active 8841971 08 Assessment Third trimester Z33.1 Sep, Active 69981909 Problem Late care affecting in second trimester O09.32 Active 28249074 7 Problem S/P repeat low transverse Z98.89 Active 8478189 06 ALLERGIES Unknown Allergies SOCIAL HISTORY No smoking Hx information available PLAN OF CARE VITAL SIGNS Height 65 in 2016-10-25 Weight 173.0 lbs 2016-10-25 Heart Rate 70 bpm 2016-10-25 Respiratory Rate 18 2016-10-25 BMI 28.789 kg/m2 2016-10-25 Blood pressure systolic 118 mmHg Blood pressure diastolic 70 mmHg 2016-09 MEDICATIONS Medication Instructions Dosage Frequency Start Date End Date Du ration Status Iron 325 (65 Fe) MG Orally Once a day 1 tablet 24h Sep, Active One Daily 27-0.8 MG Acti ve RESULTS Name Result Date Reference Range UA OB DIP (IN HOUSE) 2016-10-25 Glucose negative Protein negative CBC 2016-10-25 WBC 8.6 3.4-10.8 RBC 3.50 3.77-5.28 Hemoglobin 10.1 11.1-15.9 Hematocrit 31.8 34.0-46.6 MCV 91 79-97 MCH 28.9 26.6-33.0 MCHC 31.8 31.5-35.7 RDW 14.9 12.3-15.4 Platelets 104 150-379 Neutrophils 67 Lymphs 18 Monocytes 8 Eos 6 Basos 0 Immature Cells Neutrophils (Absolute) 5.8 1.4-7 .0 Lymphs (Absolute) 1.6 0.7-3.1 Monocytes(Absolute) 0.7 0.1-0.9 Eos (Absolute) 0.5 0.0-0.4 Baso (Absolute) 0.0 0.0-0.2 Immature Granulocytes 1 Immature Grans (Abs) 0.1 0.0-0.1 NRBC Hematology Comments: Note: PROCEDURES Procedure Date Ordered Related Diagnosis Body Site COMPLETE CBC W/AUTO DIFF WBC Oct 25, 2016 Office Visit, Est Pt., Level 2 Oct 25, 2016 VENIPUNCT, ROUTINE* Oct 25, 2016 URINE-NO MICRO Oct 25, 2016 IMMUNIZATIONS No Known Immunizations
--- OUTSIDE RECORDS SUMMARY | 2023-08-07 11:02 | XMS REPORT ---
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 [address] [address] Apr, [place] [address] [address] Jan, Thrombocytopenia D69.6 [place] [address] [address] 13 Jan, 2018 Thrombocytopenia D69.6 and Hyperpigmentation L81.9 [place] [address] [place] [id number] [place] [address] Jan, Skin lesion of face L98.9 [place] [address] [place] [id number] [place] [address] 02 Dec, 2017 Encounter for routine adult health examination with abnormal findings Z00.01 ; Hyperpigmentation L81.9 and Frequent headaches R51 [place] [address] [place] [id number] [place] [address] 01 Dec, 2017 Encounter for routine adult health examination with abnormal findings Z00.01 ; Hyperpigmentation L81.9 and Frequent headaches R51 [place] [address] [address] Nov, Scabies exposure Z20.[address] [address] Nov, [place] [address] [place] [id number] [place] [address] Nov, Thrombocytopenia D69.6 ; examination following delivery Z39.2 ; LFT elevation R94.5 ; Hair loss L65.9 ; Encounter for initial prescription of injectable contraceptive Z30.013 and Hematochezia K92.1 [place] [address] [place] [id number] [place] [address] Nov, [place] [address] [place] [id number] [place] [address] Nov, [place] [address] [place] [id number] [place] [address] Oct, [place] [address] [place] [id number] [place] [address] Oct, [facility] [address] [place] [id number] [place] [address] Sep, [place] [address] [place] [id number] [place] [address] Sep, Third trimester Z33.1 ; Thrombocytopenia D69.6 and 37 weeks gestation of Z3A.[address] [address] Sep, screening for streptococcus B Z36 ; Third trimester Z33.1 and 36 weeks gestation of Z3A.[address] [address] Sep, Glucose tolerance test abnormal R73.[address] [address] Sep, [address] [address] Sep, Third trimester Z33.1 ; Visual changes H53.9 ; 34 weeks gestation of Z3A.34 and Encounter for immunization Z23 [address] [address] Sep, [address] [address] Jul, Other diseases of the blood and blood-forming organs and certain disorders involving the immune mechanism complicating , second trimester O99.112 ; Thrombocytopenia, unspecified D69.6 ; S/P repeat low transverse Z98.89 ; Third trimester Z33.1 ; 29 weeks gestation of Z3A.29 and Encounter for immunization [address] [place] [address] [place] [address] May, Normal in multigravida in second trimester Z34.82 ; Late care affecting in second trimester O09.32 ; S/P repeat low transverse Z98.89 and 19 weeks gestation of Z3A.19 [place] [address] [place] [address] May, [facility] [address] [place] [address] May, Hematuria R31.9 ; Acute hemorrhoid K64.9 ; Headache, unspecified headache type R51 and , unspecified gestational age Z33.1 [place] [address] [place] [address] Jun, Unspecified high-risk V23.9 ; Unspecified thrombocytopenia 287.5 and Previous delivery, unspecified as to episode of care or not applicable 654.[address] [address] Jun, Supervision of other normal V22.[address] [address] May, Supervision of other normal V22.1 ; screening for streptococcus B V28.6 ; Gestational thrombocytopenia 649.30 and Anemia affecting 648.[address] [address] May, [place] [address] [place] [address] May, Unspecified high-risk V23.9 ; Gestational thrombocytopenia 649.30 and Diabetes mellitus screening V77.1 [place] [address] [place] [address] Apr, Supervision of other normal V22.1 ; Screening for diabetes mellitus V77.1 ; TDAP DX V06.1 ; Previous delivery, unspecified as to episode of care or not applicable 654.20 and Gestational thrombocytopenia 649.30 [place] [address] [place] [address] March, Supervision of other normal V22.1 ; Gestational thrombocytopenia 649.30 and Previous delivery, unspecified as to episode of care or not applicable 654.20 [place] [id number] [place] [address] Feb, [address] [place] [address] 13 Feb, 2015 [facility] [place] [facility] [address] [facility] [id number] [place] [address] Jan, [facility] [place] [facility] [address] [facility] [id number] [place] [address] Jan, [facility] [place] [facility] [address] [facility] [id number] [place] [address] Jan, [facility] [place] [facility] [address] [facility] [id number] [place] [address] Jan, [facility] [place] [facility] [address] [facility] [id number] [place] [address] Jan, [facility] [place] [facility] [address] [facility] [id number] [place] [address] Dec, [facility] [place] [facility] [address] [place] [id number] [place] [address] Dec, [facility] [place] [facility] [address] [facility] [id number] [place] [address] Dec, [facility] [place] [facility] [id number] [place] [address] Dec, [facility] [place] [facility] [id number] [place] [address] Dec, [facility] [place] [facility] [address] [facility] [id number] [place] [address] Dec, 2014 [facility] [place] [facility] [address] [facility] [id number], [place] [address] 20 Dec, 2014 [facility] [place] [facility] [address] [facility] [id number] [place] [address] Dec, [facility] [place] [facility] [address] [facility] [id number], [place] [address] Dec, 2014 [facility] [place] [facility] [address] [facility] [id number], [place] [address] [address], [address] [facility] [id number], [place] [address] Dec, [facility] [address] [address] Dec, [facility] [address] [address] Dec, [facility] [address] [address] Dec, [facility] [address] [address] Nov, [facility] [address] [address] Nov, [facility] [address] [address] Nov, [facility] [address] [address] Nov, [facility] [address] [address] Nov, [facility] [address], [place] [address] Nov, [facility] [id number], [place] [address] Nov, IMMUNIZATIONS No Known Immunizations SOCIAL HISTORY Never Assessed REASON FOR VISIT PLAN OF CARE VITAL SIGNS MEDICATIONS Unknown Medications RESULTS No Results PROCEDURES Procedure Date Ordered Result Body Site PROTHROMBIN TIME Jan 15, 2015 AUTOMATED RETICULOCYTE COUNT Jan 15, 2015 BL SMEAR W/DIFF WBC COUNT Jan 15, 2015 BLOOD FOLIC ACID SERUM Jan 15, 2015 VITAMIN B-12 Jan 15, 2015 COMPREHEN METABOLIC PANEL Jan 15, 2015 HEPATITIS C AB TEST Jan 15, 2015 LAB PATHOLOGY CONSULTATION Jan 15, 2015 VENIPUNCT, ROUTINE* Jan 15, 2015 INSTRUCTIONS MEDICATIONS ADMINISTERED No Known Medications MEDICAL (GENERAL) HISTORY Type Description Date Medical History Low white blood cells- Medical History high cholesterol Medical History S/P repeat low transverse C-sect ion Surgical History section x3 11/19/2012 Hospitalization History Childbirth
--- OUTSIDE RECORDS SUMMARY | 2023-08-07 11:02 | XMS REPORT ---
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 [facility] [address] [address] Jun, UTI symptoms R39.9 and Vaginal mass N89.8 [facility] [address] [address] Nov, Dysuria R30.0 ; Pelvic mass R19.00 and Urinary tract infection without hematuria, site unspecified N39.0 [facility] [address] [place] [id number] [place] [address] Sep, Pelvic mass R19.00 and Dysuria R30.0 [facility] [address] [address] Apr, [place] [address] [address] Jan, Thrombocytopenia D69.6 [place] [address] [address] 13 Jan, 2018 Thrombocytopenia D69.6 and Hyperpigmentation L81.9 [place] [address] [place] [id number] [place] [address] Jan, Skin lesion of face L98.9 [place] [address] [place] [id number] [place] [address] 02 Dec, 2017 Encounter for routine adult health examination with abnormal findings Z00.01 ; Hyperpigmentation L81.9 and Frequent headaches R51 [place] [address] [place] [id number] [place] [address] 01 Dec, 2017 Encounter for routine adult health examination with abnormal findings Z00.01 ; Hyperpigmentation L81.9 and Frequent headaches R51 [place] [address] [address] Nov, Scabies exposure Z20.[address] [address] Nov, [place] [address] [place] [id number] [place] [address] Nov, Thrombocytopenia D69.6 ; examination following delivery Z39.2 ; LFT elevation R94.5 ; Hair loss L65.9 ; Encounter for initial prescription of injectable contraceptive Z30.013 and Hematochezia K92.1 [place] [address] [place] [id number] [place] [address] Nov, [place] [address] [place] [id number] [place] [address] Nov, [place] [address] [place] [id number] [place] [address] Oct, [place] [address] [place] [id number] [place] [address] Oct, [facility] [address] [place] [id number] [place] [address] Sep, [place] [address] [place] [id number] [place] [address] Sep, Third trimester Z33.1 ; Thrombocytopenia D69.6 and 37 weeks gestation of Z3A.[address] [address] Sep, screening for streptococcus B Z36 ; Third trimester Z33.1 and 36 weeks gestation of Z3A.[address] [address] Sep, Glucose tolerance test abnormal R73.[address] [address] Sep, [address] [address] Sep, Third trimester Z33.1 ; Visual changes H53.9 ; 34 weeks gestation of Z3A.34 and Encounter for immunization Z23 [address] [address] Sep, [address] [address] Jul, Other diseases of the blood and blood-forming organs and certain disorders involving the immune mechanism complicating , second trimester O99.112 ; Thrombocytopenia, unspecified D69.6 ; S/P repeat low transverse Z98.89 ; Third trimester Z33.1 ; 29 weeks gestation of Z3A.29 and Encounter for immunization [address] [place] [id number] [place] [address] May, Normal in multigravida in second trimester Z34.82 ; Late care affecting in second trimester O09.32 ; S/P repeat low transverse Z98.89 and 19 weeks gestation of Z3A.19 [place] [id number] [place] [address] May, [facility] [address] [place] [address] May, Hematuria R31.9 ; Acute hemorrhoid K64.9 ; Headache, unspecified headache type R51 and , unspecified gestational age Z33.1 [place] [id number] [place] [address] Jun, Unspecified high-risk V23.9 ; Unspecified thrombocytopenia 287.5 and Previous delivery, unspecified as to episode of care or not applicable 654.[address] [address] Jun, Supervision of other normal V22.[address] [address] May, Supervision of other normal V22.1 ; screening for streptococcus B V28.6 ; Gestational thrombocytopenia 649.30 and Anemia affecting 648.[address] [address] May, [place] [id number] [place] [address] May, Unspecified high-risk V23.9 ; Gestational thrombocytopenia 649.30 and Diabetes mellitus screening V77.1 [place] [id number] [place] [address] Apr, Supervision of other normal V22.1 ; Screening for diabetes mellitus V77.1 ; TDAP DX V06.1 ; Previous delivery, unspecified as to episode of care or not applicable 654.20 and Gestational thrombocytopenia 649.30 [place] [id number] [place] [address] March, Supervision of other normal V22.1 ; Gestational thrombocytopenia 649.30 and Previous delivery, unspecified as to episode of care or not applicable 654.20 [place] [id number] [place] [address] Feb, [address] [place] [address] 13 Feb, 2015 [facility] [place] [facility] [address] [facility] [id number] [place] [address] Jan, [facility] [place] [facility] [address] [facility] [id number] [place] [address] Jan, [facility] [place] [facility] [address] [facility] [id number] [place] [address] Jan, [facility] [place] [facility] [address] [facility] [id number] [place] [address] Jan, [facility] [place] [facility] [address] [facility] [id number] [place] [address] Jan, [facility] [place] [facility] [address] [facility] [id number] [place] [address] Dec, [facility] [place] [facility] [address] [place] [id number] [place] [address] Dec, [facility] [place] [facility] [address] [facility] [id number] [place] [address] Dec, [facility] [place] [facility] [address] [place] [id number] [place] [address] Dec, [facility] [place] [facility] [address] [place] [id number] [place] [address] Dec, [facility] [place] [facility] [address] [facility] [id number] [place] [address] Dec, 2014 [facility] [place] [facility] [address] [facility] [id number] [address] 20 Dec, 2014 [facility] [place] [facility] [address] [facility] [id number] [place] [address] Dec, [facility] [place] [facility] [address] [facility] [id number], [place] [address] Dec, 2014 [facility] [place] [facility] [address] [facility] [id number], [place] [address] Dec, [facility] [address] [place] [id number] [address] Dec, [facility] [id number] [address] Dec, [facility] [id number] [address] Dec, [facility] [id number] [address] Dec, [facility] [id number] [address] Nov, [facility] [id number] [address] Nov, [facility] [id number] [address] Nov, [facility] [id number] [address] Nov, [facility] [id number], [place] [address] Nov, [facility] [id number] [address] Nov, [facility] [address] [place] [id number] [address] Nov, IMMUNIZATIONS Vaccine Route Administration Date Status FLULAVAL (3 & UP) 2013 Unknown Dec 16, 2014 Admin istered SOCIAL HISTORY Never Assessed REASON FOR VISIT PLAN OF CARE VITAL SIGNS Height 65 in 2014-12-16 Weight 139.7 lbs 2014-12-16 Temperature 97.7 degrees Fahrenheit Heart Rate 72 bpm 2014-12-16 Respiratory Rate 18 2014-12-16 Blood pressure systolic 116 mmHg Blood pressure diastolic 76 mmHg 2014-11 MEDICATIONS Unknown Medications RESULTS No Results PROCEDURES Procedure Date Ordered Result Body Site COMPLETE CBC W/AUTO DIFF WBC Dec 16, 2014 URINE CULTURE/COLONY COUNT Dec 16, 2014 HEPATITIS B SURFACE AG, EIA Dec 16, 2014 RUBELLA ANTIBODY Dec 16, 2014 HIV-1/HIV-2, SINGLE ASSAY Dec 16, 2014 BLOOD SEROLOGY, QUALITATIVE Dec 16, 2014 ASSAY THYROID STIM HORMONE Dec 16, 2014 OB US < 14 WKS, SINGLE FETUS Dec 16, 2014 BLOOD TYPING, ABO Dec 16, 2014 RBC ANTIBODY SCREEN Dec 16, 2014 VENIPUNCT, ROUTINE* Dec 16, 2014 INSTRUCTIONS MEDICATIONS ADMINISTERED No Known Medications MEDICAL (GENERAL) HISTORY Type Description Date Medical History Low white blood cells- Medical History high cholesterol Medical History S/P repeat low transverse C-sect ion Surgical History section x3 11/19/2012 Hospitalization History Childbirth
--- OUTSIDE RECORDS SUMMARY | 2023-08-07 11:02 | XMS REPORT ---
Author Author Rhoda HUFF Organization [facility] Address [address] [place] [address] Care Team Providers Care Line Maintenance Supervisor Name Role Phone KEVON HUFF Unavailable PROBLEMS Type Condition ICD9-CM Code SKC85-QC Code Onset Dates Condition Status SNOMED Code Problem Hyperpigmentation L81.9 Active 507757 09 Problem S/P repeat low transverse Z98.89 Active 3477683 06 Problem Thrombocytopenia D69.6 Active 1857885 08 ALLERGIES No Known Allergies ENCOUNTERS Encounter Location Date Diagnosis [facility] [address] [address] Sep, Pelvic mass R19.00 and Dysuria R30.0 [place] [address] [address] Apr, [place] [address] [address] 14 Jan, 2018 Thrombocytopenia D69.6 [place] [address] [address] 13 Jan, 2018 Thrombocytopenia D69.6 and Hyperpigmentation L81.9 [place] [address] [address] 05 Jan, 2018 Skin lesion of face L98.9 [place] [address] [address] 02 Dec, 2017 Encounter for routine adult health examination with abnormal findings Z00.01 ; Hyperpigmentation L81.9 and Frequent headaches R51 [place] [address] [address] Dec, Encounter for routine adult health examination with abnormal findings Z00.01 ; Hyperpigmentation L81.9 and Frequent headaches R51 [place] [address] [address] Nov, Scabies exposure Z20.89 [place] [address] [address] Nov, [place] [address] [address] Nov, Thrombocytopenia D69.6 ; examination following delivery Z39.2 ; LFT elevation R94.5 ; Hair loss L65.9 ; Encounter for initial prescription of injectable contraceptive Z30.013 and Hematochezia K92.1 [place] [address] [address] Nov, [place] [address] [address] Nov, [place] [address] [address] Oct, [place] [address] [address] Oct, [place] [address] [place] [id number] [place] [address] Sep, [place] [address] [address] Sep, Third trimester Z33.1 ; Thrombocytopenia D69.6 and 37 weeks gestation of Z3A.37 [place] [address] [address] Sep, screening for streptococcus B Z36 ; Third trimester Z33.1 and 36 weeks gestation of Z3A.36 [place] [address] [place] [id number] [place] [address] Sep, Glucose tolerance test abnormal R73.02 [place] [address] [place] [id number] [place] [address] Sep, [address] [address] Sep, Third trimester Z33.1 ; Visual changes H53.9 ; 34 weeks gestation of Z3A.34 and Encounter for immunization Z23 [address] [address] Sep, [address] [address] Jul, Other diseases of the blood and blood-forming organs and certain disorders involving the immune mechanism complicating , second trimester O99.112 ; Thrombocytopenia, unspecified D69.6 ; S/P repeat low transverse Z98.89 ; Third trimester Z33.1 ; 29 weeks gestation of Z3A.29 and Encounter for immunization Z23 [address] [address] May, Normal in multigravida in second trimester Z34.82 ; Late care affecting in second trimester O09.32 ; S/P repeat low transverse Z98.89 and 19 weeks gestation of Z3A.[address] [address] May, [facility] [address] [place] [id number] [place] [address] May, Hematuria R31.9 ; Acute hemorrhoid K64.9 ; Headache, unspecified headache type R51 and , unspecified gestational age Z33.[address] [address] Jun, Unspecified high-risk V23.9 ; Unspecified thrombocytopenia 287.5 and Previous delivery, unspecified as to episode of care or not applicable 654.[address] [address] Jun, Supervision of other normal V22.1 [place] [address] [place] [id number] [place] [address] May, Supervision of other normal V22.1 ; screening for streptococcus B V28.6 ; Gestational thrombocytopenia 649.30 and Anemia affecting 648.20 [place] [address] [place] [id number] [place] [address] May, [place] [address] [place] [id number] [place] [address] May, Unspecified high-risk V23.9 ; Gestational thrombocytopenia 649.30 and Diabetes mellitus screening V77.1 [place] [address] [place] [id number] [place] [address] Apr, Supervision of other normal V22.1 ; Screening for diabetes mellitus V77.1 ; TDAP DX V06.1 ; Previous delivery, unspecified as to episode of care or not applicable 654.20 and Gestational thrombocytopenia 649.30 [place] [address] [place] [id number] [place] [address] March, Supervision of other normal V22.1 ; Gestational thrombocytopenia 649.30 and Previous delivery, unspecified as to episode of care or not applicable 654.20 [place] [id number] [place] [address] Feb, [place] [address] [place] [id number] [place] [address] Feb, [place] [address] [place] [id number] [place] [address] Jan, [place] [address] [place] [id number] [place] [address] Jan, [place] [id number] [place] [address] Jan, [place] [address] [place] [address] Jan, [facility] [place] [facility] [address] [id number] [place] [address] Jan, [facility] [place] [facility] [address] [id number] [place] [address] Dec, 2014 [facility] [place] [facility] [address] [facility] [id number] [place] [address] Dec, 2014 [facility] [place] [facility] [address] [id number] [place] [address] Dec, 2014 [facility] [place] [facility] [address] [id number] [place] [address] Dec, 2014 [facility] [place] [facility] [address] [facility] [id number] [place] [address] 24 Dec, 2014 [facility] [place] [facility] [address] [place] [id number] [address] Dec, 2014 [facility] [place] [facility] [address] [facility] [id number] [place] [address] 20 Dec, 2014 [facility] [place] [facility] [address] [place] [id number] [address] Dec, 2014 [facility] [place] [facility] [address] [facility] [id number] [place] [address] Dec, 2014 [facility] [place] [facility] [address] [facility] [id number] [place] [address] 13 Dec, 2014 [facility] [place] [facility] [address] [facility] [id number] [place] [address] 12 Dec, 2014 [facility] [place] [facility] [address] [facility] [id number] [place] [address] 11 Dec, 2014 [facility] [place] [facility] [address] [facility] [id number] [place] [address] 10 Dec, 2014 [facility] [place] [facility] [address] [address] Dec, [facility] [address] [place] [id number] [address] Nov, [facility] [address] [place] [id number] [address] Nov, [facility] [address] [place] [id number] [address] Nov, [facility] [address] [place] [id number] [address] Nov, [facility] [address] [place] [id number] [address] Nov, [facility] [address] [place] [id number] [address] Nov, [facility] [address] [place] [id number] [address] Nov, IMMUNIZATIONS No Known Immunizations SOCIAL HISTORY Never Assessed REASON FOR VISIT pain in BLQ et inside her vagina for the past 4 days. pain comes et goes. does report bilateral flank pain et dysuria. denies the chance for STDs. johnna, does report pain with intercourse PLAN OF CARE Activity Details VITAL SIGNS Height 65 in 2018-10-26 Weight 155.8 lbs 2018-10-26 Temperature 98.3 degrees Fahrenheit Heart Rate 84 bpm 2018-10-26 Respiratory Rate 20 2018-10-26 BMI 25.92 kg/m2 2018-10-26 Blood pressure systolic 120 mmHg Blood pressure diastolic 80 mmHg 2018-09 MEDICATIONS Medication Instructions Dosage Frequency Start Date End Date Duration Status Ibuprofen 200 MG Orally Three times a day 1 tablet with food or milk as needed 8h Active RESULTS Name Result Date Reference Range UA LONG DIP (IN HOUSE) 2018-10-26 Lot # [id number] Exp date 2018 Clarity clear Color yellow Odor none GLU negative RAMANDEEP negative KET negative SG 1.020 BLO negative pH 7.5 Protein negative URO 0.2 NIT negative SUZI 1+ Lot # [id number] Exp date oct 2018 PROCEDURES Procedure Date Ordered Result Body Site URINALYSIS, AUTO, W/O SCOPE Oct 26, 2018 INSTRUCTIONS MEDICATIONS ADMINISTERED No Known Medications MEDICAL (GENERAL) HISTORY Type Description Date Medical History Low white blood cells- Medical History high cholesterol Surgical History section x3 11/19/2012 Hospitalization History Childbirth
--- OUTSIDE RECORDS SUMMARY | 2023-08-07 11:02 | XMS REPORT ---
Author Author Rhoda MCDONNELL Organization [facility] C Address [address] [place] [address] Care Team Providers Care Cardiology Nurse Name Role Phone SUSIE MCDONNELL Unavailable PROBLEMS Type Condition ICD9-CM Code [id number] Code Onset Dates Condition Status SNOMED Code Problem Hyperpigmentation L81.9 Active 618845 09 Problem S/P repeat low transverse Z98.89 Active 4697724 06 Problem Thrombocytopenia D69.6 Active 4547286 08 ALLERGIES No Known Allergies ENCOUNTERS Encounter Location Date Diagnosis [place] [address] [address] Apr, [place] [address] [address] 14 Jan, 2018 Thrombocytopenia D69.6 [place] [address] [address] 13 Jan, 2018 Thrombocytopenia D69.6 and Hyperpigmentation L81.9 [place] [address] [address] 05 Jan, 2018 Skin lesion of face L98.9 [place] [address] [address] 02 Dec, 2017 Encounter for routine adult health examination with abnormal findings Z00.01 ; Hyperpigmentation L81.9 and Frequent headaches R51 [place] [address] [address] 01 Dec, 2017 Encounter for routine adult health examination with abnormal findings Z00.01 ; Hyperpigmentation L81.9 and Frequent headaches R51 [place] [address] [address] Nov, Scabies exposure Z20.89 [facility] [address] [place] [id number] [place] [address] Nov, [facility] [address] [address] Nov, Thrombocytopenia D69.6 ; examination following delivery Z39.2 ; LFT elevation R94.5 ; Hair loss L65.9 ; Encounter for initial prescription of injectable contraceptive Z30.013 and Hematochezia K92.1 [place] [address] [place] [id number] [place] [address] Nov, [place] [address] [address] Nov, [place] [address] [address] Oct, [place] [address] [address] Oct, [facility] [address] [place] [id number] [place] [address] Sep, [place] [address] [address] Sep, Third trimester Z33.1 ; Thrombocytopenia D69.6 and 37 weeks gestation of Z3A.37 [place] [address] [place] [id number] [place] [address] Sep, screening for streptococcus B Z36 ; Third trimester Z33.1 and 36 weeks gestation of Z3A.36 [place] [address] [address] Sep, Glucose tolerance test abnormal R73.02 [place] [address] [address] 08 Sep, 2016 [facility] [address] [address] Sep, Third trimester Z33.1 ; Visual changes H53.9 ; 34 weeks gestation of Z3A.34 and Encounter for immunization Z23 [facility] [address] [place] [id number] [place] [address] Sep, [facility] [address] [place] [id number] [place] [address] Jul, Other diseases of the blood and blood-forming organs and certain disorders involving the immune mechanism complicating , second trimester O99.112 ; Thrombocytopenia, unspecified D69.6 ; S/P repeat low transverse Z98.89 ; Third trimester Z33.1 ; 29 weeks gestation of Z3A.29 and Encounter for immunization Z23 [place] [address] [place] [id number] [place] [address] May, Normal in multigravida in second trimester Z34.82 ; Late care affecting in second trimester O09.32 ; S/P repeat low transverse Z98.89 and 19 weeks gestation of Z3A.19 [place] [address] [place] [id number] [place] [address] May, [facility] [address] [place] [id number] [place] [address] May, Hematuria R31.9 ; Acute hemorrhoid K64.9 ; Headache, unspecified headache type R51 and , unspecified gestational age Z33.1 [place] [address] [place] [id number] [place] [address] Jun, Unspecified high-risk V23.9 ; Unspecified thrombocytopenia 287.5 and Previous delivery, unspecified as to episode of care or not applicable 654.20 [place] [address] [place] [id number] [place] [address] Jun, Supervision of other normal V22.1 [place] [address] [address] May, Supervision of other normal V22.1 ; screening for streptococcus B V28.6 ; Gestational thrombocytopenia 649.30 and Anemia affecting 648.20 [facility] [address] [place] [id number] [place] [address] May, [place] [address] [place] [id number] [place] [address] May, Unspecified high-risk V23.9 ; Gestational thrombocytopenia 649.30 and Diabetes mellitus screening V77.1 [place] [address] [place] [id number] [place] [address] Apr, Supervision of other normal V22.1 ; Screening for diabetes mellitus V77.1 ; TDAP DX V06.1 ; Previous delivery, unspecified as to episode of care or not applicable 654.20 and Gestational thrombocytopenia 649.30 [place] [address] [place] [id number] [place] [address] March, Supervision of other normal V22.1 ; Gestational thrombocytopenia 649.30 and Previous delivery, unspecified as to episode of care or not applicable 654.20 [facility] [address] [place] [id number] [place] [address] Feb, [facility] [address] [place] [id number] [place] [address] Feb, [facility] [address] [place] [id number] [place] [address] Jan, [facility] [address] [place] [id number] [place] [address] Jan, [facility] [address] [place] [id number] [place] [address] Jan, [facility] [address] [place] [id number] [place] [address] Jan, [facility] [id number] [place] [address] Jan, [facility] [place] [facility] [address] [id number] [place] [address] Dec, 2014 [facility] [place] [facility] [address] [id number] [place] [address] Dec, 2014 [facility] [place] [facility] [address] [id number] [place] [address] Dec, 2014 [facility] [place] [facility] [address] [id number] [place] [address] Dec, 2014 [facility] [place] [facility] [address] [id number] [place] [address] Dec, 2014 [facility] [place] [facility] [address] [id number] [place] [address] Dec, 2014 [facility] [place] [facility] [address] [id number] [place] [address] 20 Dec, 2014 [facility] [place] [facility] [address] [id number] [place] [address] Dec, 2014 [facility] [place] [facility] [address] [id number] [place] [address] Dec, 2014 [facility] [place] [facility] [address] [facility] [id number] [place] [address] Dec, 2014 [facility] [place] [facility] [address] [id number] [place] [address] Dec, 2014 [facility] [place] [facility] [address] [id number] [place] [address] Dec, 2014 [facility] [place] [facility] [address] [id number] [place] [address] Dec, 2014 [facility] [place] [facility] [address] [id number] [place] [address] Dec, 2014 [facility] [place] [facility] [address] [facility] [id number] [place] [address] Nov, [facility] [place] [facility] [address] [facility] [id number], [place] [address] Nov, [facility] [address] [facility] [id number], [place] [address] Nov, [facility] [address] [facility] [id number], [place] [address] Nov, [facility] [address] [facility] [id number], [place] [address] Nov, [facility] [address] [facility] [id number], [place] [address] Nov, [facility] [address] [facility] [id number], [place] [address] Nov, IMMUNIZATIONS No Known Immunizations SOCIAL HISTORY Never Assessed REASON FOR VISIT Biopsy-Per action--[facility] PLAN OF CARE Activity Details VITAL SIGNS Height 65 in 2018-01-29 Weight 164.8 lbs 2018-01-29 Temperature 97.9 degrees Fahrenheit Heart Rate 80 bpm 2018-01-29 Respiratory Rate 20 2018-01-29 BMI 27.42 kg/m2 2018-01-29 Blood pressure systolic 122 mmHg Blood pressure diastolic 84 mmHg 2018-01 MEDICATIONS Medication Instructions Dosage Frequency Start Date End Date Du ration Status tylenol Active RESULTS Name Result Date Reference Range PATHOLOGY REPORT (TISSUE PATHOLOGY) 01-29 CLINICAL INFORMATION PATHOLOGIST TISSUE, SPECIMEN A 2018-01-29 A SOURCE A GROSS DESCRIPTION A DIAGNOSIS A COMMENT PROCEDURES Procedure Date Ordered Result Body Site BIOPSY SKIN LESION (SINGLE) 2018-01-29 N/A BIOPSY OF SKIN LESION January 29, 2018 INSTRUCTIONS MEDICATIONS ADMINISTERED No Known Medications MEDICAL (GENERAL) HISTORY Type Description Date Medical History Low white blood cells- Medical History high cholesterol Surgical History section x2 11/19/2012 Hospitalization History Childbirth
--- OUTSIDE RECORDS SUMMARY | 2023-08-07 11:02 | XMS REPORT ---
Author Author Rhoda MCDONNELL Organization [facility] C Address [address] [place] [address] Care Team Providers Care Paralegal Assistant Name Role Phone SUSIE MCDONNELL Unavailable PROBLEMS Type Condition ICD9-CM Code DBO80-IM Code Onset Dates Condition Status SNOMED Code Problem Hyperpigmentation L81.9 Active 680461 09 Problem S/P repeat low transverse Z98.89 Active 8566811 06 Problem Thrombocytopenia D69.6 Active 3078599 08 ALLERGIES No Information ENCOUNTERS Encounter Location Date Diagnosis [place] [address] [address] Apr, [place] [address] [address] 14 Jan, 2018 Thrombocytopenia D69.6 [place] [address] [address] 13 Jan, 2018 Thrombocytopenia D69.6 and Hyperpigmentation L81.9 [place] [address] [address] 05 Jan, 2018 Skin lesion of face L98.9 [place] [address] [address] 02 Dec, 2017 Encounter for routine adult health examination with abnormal findings Z00.01 ; Hyperpigmentation L81.9 and Frequent headaches R51 [place] [address] [address] Dec, Encounter for routine adult health examination with abnormal findings Z00.01 ; Hyperpigmentation L81.9 and Frequent headaches R51 [place] [address] [address] Nov, Scabies exposure Z20.89 [facility] [address] [place] [id number] [place] [address] Nov, [facility] [address] [address] Nov, Thrombocytopenia D69.6 ; examination following delivery Z39.2 ; LFT elevation R94.5 ; Hair loss L65.9 ; Encounter for initial prescription of injectable contraceptive Z30.013 and Hematochezia K92.1 [place] [address] [place] [id number] [place] [address] Nov, [place] [address] [address] Nov, [place] [address] [address] Oct, [place] [address] [address] Oct, [facility] [address] [place] [id number] [place] [address] Sep, [place] [address] [place] [id number] [place] [address] Sep, Third trimester Z33.1 ; Thrombocytopenia D69.6 and 37 weeks gestation of Z3A.37 [place] [address] [place] [id number] [place] [address] Sep, screening for streptococcus B Z36 ; Third trimester Z33.1 and 36 weeks gestation of Z3A.36 [place] [address] [place] [id number] [place] [address] Sep, Glucose tolerance test abnormal R73.02 [place] [address] [place] [id number] [place] [address] Sep, [place] [address] [address] Sep, Third trimester Z33.1 ; Visual changes H53.9 ; 34 weeks gestation of Z3A.34 and Encounter for immunization Z23 [facility] [address] [place] [id number] [place] [address] Sep, [facility] [address] [place] [id number] [place] [address] Jul, Other diseases of the blood and blood-forming organs and certain disorders involving the immune mechanism complicating , second trimester O99.112 ; Thrombocytopenia, unspecified D69.6 ; S/P repeat low transverse Z98.89 ; Third trimester Z33.1 ; 29 weeks gestation of Z3A.29 and Encounter for immunization Z23 [place] [address] [place] [id number] [place] [address] May, Normal in multigravida in second trimester Z34.82 ; Late care affecting in second trimester O09.32 ; S/P repeat low transverse Z98.89 and 19 weeks gestation of Z3A.19 [place] [address] [place] [id number] [place] [address] May, [facility] [address] [place] [id number] [place] [address] May, Hematuria R31.9 ; Acute hemorrhoid K64.9 ; Headache, unspecified headache type R51 and , unspecified gestational age Z33.1 [place] [address] [place] [id number] [place] [address] Jun, Unspecified high-risk V23.9 ; Unspecified thrombocytopenia 287.5 and Previous delivery, unspecified as to episode of care or not applicable 654.20 [place] [address] [place] [id number] [place] [address] Jun, Supervision of other normal V22.1 [place] [address] [place] [id number] [place] [address] May, Supervision of other normal V22.1 ; screening for streptococcus B V28.6 ; Gestational thrombocytopenia 649.30 and Anemia affecting 648.20 [facility] [address] [place] [id number] [place] [address] May, [facility] [address] [place] [id number] [place] [address] May, Unspecified high-risk V23.9 ; Gestational thrombocytopenia 649.30 and Diabetes mellitus screening V77.1 [facility] [address] [place] [id number] [place] [address] Apr, Supervision of other normal V22.1 ; Screening for diabetes mellitus V77.1 ; TDAP DX V06.1 ; Previous delivery, unspecified as to episode of care or not applicable 654.20 and Gestational thrombocytopenia 649.30 [place] [address] [place] [id number] [place] [address] March, Supervision of other normal V22.1 ; Gestational thrombocytopenia 649.30 and Previous delivery, unspecified as to episode of care or not applicable 654.20 [facility] [address] [place] [id number] [place] [address] Feb, [facility] [address] [place] [id number] [place] [address] Feb, [facility] [address] [place] [id number] [place] [address] Jan, [facility] [address] [place] [id number] [place] [address] Jan, [facility] [address] [place] [id number] [place] [address] Jan, [facility] [address] [place] [id number] [place] [address] Jan, [facility] [address] [place] [id number] [place] [address] Jan, [facility] [place] [facility] [address] [id number] [place] [address] Dec, 2014 [facility] [place] [facility] [address] [id number] [place] [address] Dec, 2014 [facility] [place] [facility] [address] [id number] [place] [address] Dec, 2014 [facility] [place] [facility] [address] [facility] [id number] [place] [address] Dec, 2014 [facility] [place] [facility] [address] [id number] [place] [address] Dec, [facility] [place] [facility] [address] [id number] [place] [address] Dec, 2014 [facility] [place] [facility] [address] [facility] [id number] [place] [address] 20 Dec, 2014 [facility] [place] [facility] [address] [facility] [id number] [place] [address] Dec, 2014 [facility] [place] [facility] [address] [id number] [place] [address] Dec, 2014 [facility] [place] [facility] [address] [facility] [id number] [place] [address] 13 Dec, 2014 [facility] [place] [facility] [address] [facility] [id number] [place] [address] Dec, 2014 [facility] [place] [facility] [address] [facility] [id number] [place] [address] Dec, 2014 [facility] [place] [facility] [address] [id number] [place] [address] Dec, 2014 [facility] [place] [facility] [address] [facility] [id number] [place] [address] Dec, 2014 [facility] [place] [facility] [address] [facility] [id number] [place] [address] Nov, [facility] [place] [facility] [address] [facility] [id number], [place] [address] Nov, [facility] [address] [id number] [address] Nov, [facility] [address], [place] [address] Nov, [facility] [address] [place] [id number] [address] Nov, [facility] [id number], [place] [address] Nov, [facility] [address], [place] [address] Nov, IMMUNIZATIONS No Known Immunizations SOCIAL HISTORY Never Assessed REASON FOR VISIT Lab orders PLAN OF CARE VITAL SIGNS MEDICATIONS Unknown Medications RESULTS No Results PROCEDURES No Known procedures INSTRUCTIONS MEDICATIONS ADMINISTERED No Known Medications MEDICAL (GENERAL) HISTORY Type Description Date Medical History Low white blood cells- Medical History high cholesterol Surgical History section x2 11/19/2012 Hospitalization History Childbirth
--- OUTSIDE RECORDS SUMMARY | 2023-08-07 11:02 | XMS REPORT ---
Author Author Rhoda MCDONNELL Organization [facility] C Address [address] [place] [address] Care Team Providers Care Tone Cabinet Assembler Name Role Phone SUSIE MCDONNELL Unavailable PROBLEMS Type Condition ICD9-CM Code [id number] Code Onset Dates Condition Status SNOMED Code Problem Hyperpigmentation L81.9 Active 174540 09 Problem S/P repeat low transverse Z98.89 Active 7620054 06 Problem Thrombocytopenia D69.6 Active 7333796 08 ALLERGIES No Information ENCOUNTERS Encounter Location Date Diagnosis [place] [address] [address] Apr, [place] [address] [address] 14 Jan, 2018 Thrombocytopenia D69.6 [place] [address] [address] 13 Jan, 2018 Thrombocytopenia D69.6 and Hyperpigmentation L81.9 [place] [address] [address] 05 Jan, 2018 Skin lesion of face L98.9 [place] [address] [address] 02 Dec, 2017 Encounter for routine adult health examination with abnormal findings Z00.01 ; Hyperpigmentation L81.9 and Frequent headaches R51 [place] [address] [address] Dec, Encounter for routine adult health examination with abnormal findings Z00.01 ; Hyperpigmentation L81.9 and Frequent headaches R51 [place] [address] [address] Nov, Scabies exposure Z20.89 [facility] [address] [place] [id number] [place] [address] Nov, [facility] [address] [address] Nov, Thrombocytopenia D69.6 ; examination following delivery Z39.2 ; LFT elevation R94.5 ; Hair loss L65.9 ; Encounter for initial prescription of injectable contraceptive Z30.013 and Hematochezia K92.1 [place] [address] [place] [id number] [place] [address] Nov, [place] [address] [address] Nov, [place] [address] [address] Oct, [place] [address] [address] Oct, [facility] [address] [place] [id number] [place] [address] Sep, [place] [address] [place] [id number] [place] [address] Sep, Third trimester Z33.1 ; Thrombocytopenia D69.6 and 37 weeks gestation of Z3A.37 [place] [address] [place] [id number] [place] [address] Sep, screening for streptococcus B Z36 ; Third trimester Z33.1 and 36 weeks gestation of Z3A.36 [place] [address] [place] [id number] [place] [address] Sep, Glucose tolerance test abnormal R73.02 [place] [address] [place] [id number] [place] [address] Sep, [place] [address] [address] Sep, Third trimester Z33.1 ; Visual changes H53.9 ; 34 weeks gestation of Z3A.34 and Encounter for immunization Z23 [facility] [address] [place] [id number] [place] [address] Sep, [facility] [address] [place] [id number] [place] [address] Jul, Other diseases of the blood and blood-forming organs and certain disorders involving the immune mechanism complicating , second trimester O99.112 ; Thrombocytopenia, unspecified D69.6 ; S/P repeat low transverse Z98.89 ; Third trimester Z33.1 ; 29 weeks gestation of Z3A.29 and Encounter for immunization Z23 [place] [address] [place] [id number] [place] [address] May, Normal in multigravida in second trimester Z34.82 ; Late care affecting in second trimester O09.32 ; S/P repeat low transverse Z98.89 and 19 weeks gestation of Z3A.19 [place] [address] [place] [id number] [place] [address] May, [facility] [address] [place] [id number] [place] [address] May, Hematuria R31.9 ; Acute hemorrhoid K64.9 ; Headache, unspecified headache type R51 and , unspecified gestational age Z33.1 [place] [address] [place] [id number] [place] [address] Jun, Unspecified high-risk V23.9 ; Unspecified thrombocytopenia 287.5 and Previous delivery, unspecified as to episode of care or not applicable 654.20 [place] [address] [place] [id number] [place] [address] Jun, Supervision of other normal V22.1 [place] [address] [place] [id number] [place] [address] May, Supervision of other normal V22.1 ; screening for streptococcus B V28.6 ; Gestational thrombocytopenia 649.30 and Anemia affecting 648.20 [facility] [address] [place] [id number] [place] [address] May, [facility] [address] [place] [id number] [place] [address] May, Unspecified high-risk V23.9 ; Gestational thrombocytopenia 649.30 and Diabetes mellitus screening V77.1 [facility] [address] [place] [id number] [place] [address] Apr, Supervision of other normal V22.1 ; Screening for diabetes mellitus V77.1 ; TDAP DX V06.1 ; Previous delivery, unspecified as to episode of care or not applicable 654.20 and Gestational thrombocytopenia 649.30 [place] [address] [place] [id number] [place] [address] March, Supervision of other normal V22.1 ; Gestational thrombocytopenia 649.30 and Previous delivery, unspecified as to episode of care or not applicable 654.20 [facility] [address] [place] [id number] [place] [address] Feb, [facility] [address] [place] [id number] [place] [address] Feb, [facility] [address] [place] [id number] [place] [address] Jan, [facility] [address] [place] [id number] [place] [address] Jan, [facility] [address] [place] [id number] [place] [address] Jan, [facility] [address] [place] [id number] [place] [address] Jan, [facility] [address] [place] [id number] [place] [address] Jan, [facility] [place] [facility] [address] [id number] [place] [address] Dec, 2014 [facility] [place] [facility] [address] [id number] [place] [address] Dec, 2014 [facility] [place] [facility] [address] [id number] [place] [address] Dec, 2014 [facility] [place] [facility] [address] [facility] [id number] [place] [address] Dec, 2014 [facility] [place] [facility] [address] [id number] [place] [address] Dec, [facility] [place] [facility] [address] [id number] [place] [address] Dec, 2014 [facility] [place] [facility] [address] [facility] [id number] [place] [address] 20 Dec, 2014 [facility] [place] [facility] [address] [facility] [id number] [place] [address] Dec, 2014 [facility] [place] [facility] [address] [id number] [place] [address] Dec, 2014 [facility] [place] [facility] [address] [facility] [id number] [place] [address] 13 Dec, 2014 [facility] [place] [facility] [address] [facility] [id number] [place] [address] Dec, 2014 [facility] [place] [facility] [address] [facility] [id number] [place] [address] Dec, 2014 [facility] [place] [facility] [address] [id number] [place] [address] Dec, 2014 [facility] [place] [facility] [address] [facility] [id number] [place] [address] Dec, 2014 [facility] [place] [facility] [address] [facility] [id number] [place] [address] Nov, [facility] [place] [facility] [address] [place] [id number] [address] Nov, [facility] [address] [place] [id number] [address] Nov, [facility] [address] [address] Nov, [facility] [address] [place] [id number] [address] Nov, [facility] [address] [address] Nov, [facility] [address] [address] Nov, IMMUNIZATIONS No Known Immunizations SOCIAL HISTORY Never Assessed REASON FOR VISIT eye PLAN OF CARE VITAL SIGNS MEDICATIONS Unknown Medications RESULTS No Results PROCEDURES No Known procedures INSTRUCTIONS MEDICATIONS ADMINISTERED No Known Medications MEDICAL (GENERAL) HISTORY Type Description Date Medical History Low white blood cells- Medical History high cholesterol Surgical History section x2 11/19/2012 Hospitalization History Childbirth
--- OUTSIDE RECORDS SUMMARY | 2023-08-07 11:02 | XMS REPORT ---
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 [facility] [address] [address] Jun, UTI symptoms R39.9 and Vaginal mass N89.8 [facility] [address] [address] Nov, Dysuria R30.0 ; Pelvic mass R19.00 and Urinary tract infection without hematuria, site unspecified N39.0 [facility] [address] [place] [id number] [place] [address] Sep, Pelvic mass R19.00 and Dysuria R30.0 [facility] [address] [address] Apr, [place] [address] [address] Jan, Thrombocytopenia D69.6 [place] [address] [address] 13 Jan, 2018 Thrombocytopenia D69.6 and Hyperpigmentation L81.9 [place] [address] [place] [id number] [place] [address] Jan, Skin lesion of face L98.9 [place] [address] [place] [id number] [place] [address] 02 Dec, 2017 Encounter for routine adult health examination with abnormal findings Z00.01 ; Hyperpigmentation L81.9 and Frequent headaches R51 [place] [address] [place] [id number] [place] [address] 01 Dec, 2017 Encounter for routine adult health examination with abnormal findings Z00.01 ; Hyperpigmentation L81.9 and Frequent headaches R51 [place] [address] [address] Nov, Scabies exposure Z20.[address] [address] Nov, [place] [address] [place] [id number] [place] [address] Nov, Thrombocytopenia D69.6 ; examination following delivery Z39.2 ; LFT elevation R94.5 ; Hair loss L65.9 ; Encounter for initial prescription of injectable contraceptive Z30.013 and Hematochezia K92.1 [place] [address] [place] [id number] [place] [address] Nov, [place] [address] [place] [id number] [place] [address] Nov, [place] [address] [place] [id number] [place] [address] Oct, [place] [address] [place] [id number] [place] [address] Oct, [facility] [address] [place] [id number] [place] [address] Sep, [place] [address] [place] [id number] [place] [address] Sep, Third trimester Z33.1 ; Thrombocytopenia D69.6 and 37 weeks gestation of Z3A.[address] [address] Sep, screening for streptococcus B Z36 ; Third trimester Z33.1 and 36 weeks gestation of Z3A.[address] [address] Sep, Glucose tolerance test abnormal R73.[address] [address] Sep, [address] [address] Sep, Third trimester Z33.1 ; Visual changes H53.9 ; 34 weeks gestation of Z3A.34 and Encounter for immunization Z23 [address] [address] Sep, [address] [address] Jul, Other diseases of the blood and blood-forming organs and certain disorders involving the immune mechanism complicating , second trimester O99.112 ; Thrombocytopenia, unspecified D69.6 ; S/P repeat low transverse Z98.89 ; Third trimester Z33.1 ; 29 weeks gestation of Z3A.29 and Encounter for immunization [address] [place] [id number] [place] [address] May, Normal in multigravida in second trimester Z34.82 ; Late care affecting in second trimester O09.32 ; S/P repeat low transverse Z98.89 and 19 weeks gestation of Z3A.19 [place] [id number] [place] [address] May, [facility] [address] [place] [address] May, Hematuria R31.9 ; Acute hemorrhoid K64.9 ; Headache, unspecified headache type R51 and , unspecified gestational age Z33.1 [place] [id number] [place] [address] Jun, Unspecified high-risk V23.9 ; Unspecified thrombocytopenia 287.5 and Previous delivery, unspecified as to episode of care or not applicable 654.[address] [address] Jun, Supervision of other normal V22.[address] [address] May, Supervision of other normal V22.1 ; screening for streptococcus B V28.6 ; Gestational thrombocytopenia 649.30 and Anemia affecting 648.[address] [address] May, [place] [id number] [place] [address] May, Unspecified high-risk V23.9 ; Gestational thrombocytopenia 649.30 and Diabetes mellitus screening V77.1 [place] [id number] [place] [address] Apr, Supervision of other normal V22.1 ; Screening for diabetes mellitus V77.1 ; TDAP DX V06.1 ; Previous delivery, unspecified as to episode of care or not applicable 654.20 and Gestational thrombocytopenia 649.30 [place] [id number] [place] [address] March, Supervision of other normal V22.1 ; Gestational thrombocytopenia 649.30 and Previous delivery, unspecified as to episode of care or not applicable 654.20 [place] [id number] [place] [address] Feb, [address] [place] [address] 13 Feb, 2015 [facility] [place] [facility] [address] [facility] [id number] [place] [address] Jan, [facility] [place] [facility] [address] [facility] [id number] [place] [address] Jan, [facility] [place] [facility] [address] [facility] [id number] [place] [address] Jan, [facility] [place] [facility] [address] [facility] [id number] [place] [address] Jan, [facility] [place] [facility] [address] [facility] [id number] [place] [address] Jan, [facility] [place] [facility] [address] [facility] [id number] [place] [address] Dec, [facility] [place] [facility] [address] [place] [id number] [place] [address] Dec, [facility] [place] [facility] [address] [facility] [id number] [place] [address] Dec, [facility] [place] [facility] [address] [place] [id number] [place] [address] Dec, [facility] [place] [facility] [address] [place] [id number] [place] [address] Dec, [facility] [place] [facility] [address] [facility] [id number] [place] [address] Dec, 2014 [facility] [place] [facility] [address] [facility] [id number] [address] 20 Dec, 2014 [facility] [place] [facility] [address] [facility] [id number] [place] [address] Dec, [facility] [place] [facility] [address] [facility] [id number], [place] [address] Dec, 2014 [facility] [place] [facility] [address] [facility] [id number], [place] [address] Dec, [facility] [address] [place] [id number], [place] [address] Dec, [facility] [address], [place] [address] Dec, [facility] [id number], [place] [address] Dec, [facility] [address], [place] [address] Dec, [facility] [id number], [place] [address] Nov, [facility] [address], [place] [address] Nov, [facility] [address], [place] [address] Nov, [facility] [address], [place] [address] Nov, [facility] [address], [place] [address] Nov, [facility] [address], [place] [address] Nov, [facility] [address] [place] [id number], [place] [address] Nov, IMMUNIZATIONS No Known Immunizations SOCIAL HISTORY [...]
--- OUTSIDE RECORDS SUMMARY | 2023-08-07 11:02 | XMS REPORT ---
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 [facility] [address] [address] Jun, UTI symptoms R39.9 and Vaginal mass N89.8 [facility] [address] [address] Nov, Dysuria R30.0 ; Pelvic mass R19.00 and Urinary tract infection without hematuria, site unspecified N39.0 [facility] [address] [place] [id number] [place] [address] Sep, Pelvic mass R19.00 and Dysuria R30.0 [facility] [address] [address] Apr, [place] [address] [address] Jan, Thrombocytopenia D69.6 [place] [address] [address] 13 Jan, 2018 Thrombocytopenia D69.6 and Hyperpigmentation L81.9 [place] [address] [place] [id number] [place] [address] Jan, Skin lesion of face L98.9 [place] [address] [place] [id number] [place] [address] 02 Dec, 2017 Encounter for routine adult health examination with abnormal findings Z00.01 ; Hyperpigmentation L81.9 and Frequent headaches R51 [place] [address] [place] [id number] [place] [address] 01 Dec, 2017 Encounter for routine adult health examination with abnormal findings Z00.01 ; Hyperpigmentation L81.9 and Frequent headaches R51 [place] [address] [address] Nov, Scabies exposure Z20.[address] [address] Nov, [place] [address] [place] [id number] [place] [address] Nov, Thrombocytopenia D69.6 ; examination following delivery Z39.2 ; LFT elevation R94.5 ; Hair loss L65.9 ; Encounter for initial prescription of injectable contraceptive Z30.013 and Hematochezia K92.1 [place] [address] [place] [id number] [place] [address] Nov, [place] [address] [place] [id number] [place] [address] Nov, [place] [address] [place] [id number] [place] [address] Oct, [place] [address] [place] [id number] [place] [address] Oct, [facility] [address] [place] [id number] [place] [address] Sep, [place] [address] [place] [id number] [place] [address] Sep, Third trimester Z33.1 ; Thrombocytopenia D69.6 and 37 weeks gestation of Z3A.[address] [address] Sep, screening for streptococcus B Z36 ; Third trimester Z33.1 and 36 weeks gestation of Z3A.[address] [address] Sep, Glucose tolerance test abnormal R73.[address] [address] Sep, [address] [address] Sep, Third trimester Z33.1 ; Visual changes H53.9 ; 34 weeks gestation of Z3A.34 and Encounter for immunization Z23 [address] [address] Sep, [address] [address] Jul, Other diseases of the blood and blood-forming organs and certain disorders involving the immune mechanism complicating , second trimester O99.112 ; Thrombocytopenia, unspecified D69.6 ; S/P repeat low transverse Z98.89 ; Third trimester Z33.1 ; 29 weeks gestation of Z3A.29 and Encounter for immunization [address] [place] [id number] [place] [address] May, Normal in multigravida in second trimester Z34.82 ; Late care affecting in second trimester O09.32 ; S/P repeat low transverse Z98.89 and 19 weeks gestation of Z3A.19 [place] [id number] [place] [address] May, [facility] [address] [place] [address] May, Hematuria R31.9 ; Acute hemorrhoid K64.9 ; Headache, unspecified headache type R51 and , unspecified gestational age Z33.1 [place] [id number] [place] [address] Jun, Unspecified high-risk V23.9 ; Unspecified thrombocytopenia 287.5 and Previous delivery, unspecified as to episode of care or not applicable 654.[address] [address] Jun, Supervision of other normal V22.[address] [address] May, Supervision of other normal V22.1 ; screening for streptococcus B V28.6 ; Gestational thrombocytopenia 649.30 and Anemia affecting 648.[address] [address] May, [place] [id number] [place] [address] May, Unspecified high-risk V23.9 ; Gestational thrombocytopenia 649.30 and Diabetes mellitus screening V77.1 [place] [id number] [place] [address] Apr, Supervision of other normal V22.1 ; Screening for diabetes mellitus V77.1 ; TDAP DX V06.1 ; Previous delivery, unspecified as to episode of care or not applicable 654.20 and Gestational thrombocytopenia 649.30 [place] [id number] [place] [address] March, Supervision of other normal V22.1 ; Gestational thrombocytopenia 649.30 and Previous delivery, unspecified as to episode of care or not applicable 654.20 [place] [id number] [place] [address] Feb, [address] [place] [address] 13 Feb, 2015 [facility] [place] [facility] [address] [facility] [id number] [place] [address] Jan, [facility] [place] [facility] [address] [facility] [id number] [place] [address] Jan, [facility] [place] [facility] [address] [facility] [id number] [place] [address] Jan, [facility] [place] [facility] [address] [facility] [id number] [place] [address] Jan, [facility] [place] [facility] [address] [facility] [id number] [place] [address] Jan, [facility] [place] [facility] [address] [facility] [id number] [place] [address] Dec, [facility] [place] [facility] [address] [place] [id number] [place] [address] Dec, [facility] [place] [facility] [address] [facility] [id number] [place] [address] Dec, [facility] [place] [facility] [address] [place] [id number] [place] [address] Dec, [facility] [place] [facility] [address] [place] [id number] [place] [address] Dec, [facility] [place] [facility] [address] [facility] [id number] [place] [address] Dec, 2014 [facility] [place] [facility] [address] [facility] [id number] [address] 20 Dec, 2014 [facility] [place] [facility] [address] [facility] [id number] [place] [address] Dec, [facility] [place] [facility] [address] [facility] [id number] [address] Dec, 2014 [facility] [place] [facility] [address] [facility] [id number] [address] Dec, [facility] [address] [id number] [address] Dec, [facility] [id number] [address] Dec, [facility] [id number] [address] Dec, [facility] [id number] [address] Dec, [facility] [id number] [address] Nov, [facility] [id number] [address] Nov, [facility] [id number] [address] Nov, [facility] [id number] [address] Nov, [facility] [id number] [address] Nov, [facility] [id number] [address] Nov, [facility] [address] [place] [id number] [address] Nov, IMMUNIZATIONS No Known Immunizations SOCIAL HISTORY [...]
--- OUTSIDE RECORDS SUMMARY | 2023-08-07 11:02 | XMS REPORT ---
Author Author Rhoda JACOBSEN [facility] eClinical[employer] Address Unknown Phone Unavailable Care Team Providers Care Track Repair Worker Name Role Phone RAMA JACOBSEN CP Unavailable Allergies, Adverse Reactions, Alerts Substance Reaction Event Type N.K.D.A. Info Not Available Non Drug Kurt rgy Problems Problem Type Condition Code Onset Dates Condition S tatus Assessment 19 weeks gestation of Z3A.19 Active Problem Late care a ffecting in second trimester O09.32 Active Problem S/P repeat low transverse Z98.89 Active Problem Normal in multigravida in second trimester Z34.82 Active Assessment Late care a ffecting in second trimester O09.32 Active Assessment S/P repeat low transverse Z98.89 Active Problem Thrombocytopenia D69.6 Active Assessment Normal in multigravida in second trimester Z34.82 Active Medications Medication Code System Code Instructions Start Date End Date Status Dosage One Daily [facility] 49770-53 131 27-0.8 MG Orally not defined Procedures Procedure Coding System Code Date ASSAY THYROID STIM HORMONE CPT-4 34476 J jose 2015 DRUG SCREEN NON TLC DEVICES CPT-4 19165 June 20, 2016 RBC ANTIBODY SCREEN CPT-4 90749 June 20, 2016 VENIPUNCT, ROUTINE* CPT-4 80784 June 20, 2016 URINALYSIS, AUTO, W/O SCOPE CPT-4 71256 June 20, 2016 COMPLETE CBC W/AUTO DIFF WBC CPT-4 44566 June 20, 2016 No Charge CPT-4 38207 June 20, 2016 Office Visit, Est Pt., Level 4 CPT-4 60879 June 20, 2016 URINE CULTURE/COLONY COUNT CPT-4 68382 J [email or web address] Vital Signs Date/Time: June 20, 2016 Cardiac Monitoring Heart Rate 78 bpm Weight 145.0 lbs Height 65 in BMI 24.13 Index Blood Pressure Diastolic 78 mmHg Blood Pressure Systolic 118 mmHg Results No Known Results Summary Purpose eClinicalWorks Submission
--- OUTSIDE RECORDS SUMMARY | 2023-08-07 11:02 | XMS REPORT ---
Author Author Rhoda HOLLINS Organization [facility] Address [address] [place] [address] Care Team Providers Care Professor Of Social Work Name Role Phone ISSA HOLLINS Unavailable PROBLEMS Type Condition ICD9-CM Code [id number] Code Onset Dates Condition Status SNOMED Code Problem S/P repeat low transverse Z98.89 Active 1292624 06 Problem Thrombocytopenia D69.6 Active 6352137 08 ALLERGIES Unknown Allergies SOCIAL HISTORY No smoking Hx information available PLAN OF CARE VITAL SIGNS MEDICATIONS Unknown Medications RESULTS No Results PROCEDURES No Known procedures IMMUNIZATIONS No Known Immunizations
--- OUTSIDE RECORDS SUMMARY | 2023-08-07 11:02 | XMS REPORT ---
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 [facility] [address] [address] Jun, UTI symptoms R39.9 and Vaginal mass N89.8 [facility] [address] [address] Nov, Dysuria R30.0 ; Pelvic mass R19.00 and Urinary tract infection without hematuria, site unspecified N39.0 [facility] [address] [address] Sep, Pelvic mass R19.00 and Dysuria R30.0 [facility] [address] [address] Apr, [place] [address] [address] Jan, Thrombocytopenia D69.6 [place] [address] [address] 13 Jan, 2018 Thrombocytopenia D69.6 and Hyperpigmentation L81.9 [place] [address] [place] [id number] [place] [address] Jan, Skin lesion of face L98.9 [place] [address] [address] 02 Dec, 2017 Encounter for routine adult health examination with abnormal findings Z00.01 ; Hyperpigmentation L81.9 and Frequent headaches R51 [place] [address] [address] 01 Dec, 2017 Encounter for routine adult health examination with abnormal findings Z00.01 ; Hyperpigmentation L81.9 and Frequent headaches R51 [place] [address] [address] Nov, Scabies exposure Z20.[address] [address] Nov, [address] [address] Nov, Thrombocytopenia D69.6 ; examination following delivery Z39.2 ; LFT elevation R94.5 ; Hair loss L65.9 ; Encounter for initial prescription of injectable contraceptive Z30.013 and Hematochezia K92.1 [place] [address] [place] [id number] [place] [address] Nov, [place] [address] [place] [id number] [place] [address] Nov, [place] [address] [address] Oct, [place] [address] [address] Oct, [place] [address] [place] [id number] [place] [address] Sep, [place] [address] [address] Sep, Third trimester Z33.1 ; Thrombocytopenia D69.6 and 37 weeks gestation of Z3A.[address] [address] Sep, screening for streptococcus B Z36 ; Third trimester Z33.1 and 36 weeks gestation of Z3A.[address] [address] Sep, Glucose tolerance test abnormal R73.[address] [address] Sep, [address] [address] Sep, Third trimester Z33.1 ; Visual changes H53.9 ; 34 weeks gestation of Z3A.34 and Encounter for immunization Z23 [address] [address] Sep, [address] [address] Jul, Other diseases of the blood and blood-forming organs and certain disorders involving the immune mechanism complicating , second trimester O99.112 ; Thrombocytopenia, unspecified D69.6 ; S/P repeat low transverse Z98.89 ; Third trimester Z33.1 ; 29 weeks gestation of Z3A.29 and Encounter for immunization Z23 [address] [address] May, Normal in multigravida in second trimester Z34.82 ; Late care affecting in second trimester O09.32 ; S/P repeat low transverse Z98.89 and 19 weeks gestation of Z3A.[address] [address] May, [facility] [address] [address] May, Hematuria R31.9 ; Acute hemorrhoid K64.9 ; Headache, unspecified headache type R51 and , unspecified gestational age Z33.1 [place] [id number] [place] [address] Jun, Unspecified high-risk V23.9 ; Unspecified thrombocytopenia 287.5 and Previous delivery, unspecified as to episode of care or not applicable 654.[address] [address] Jun, Supervision of other normal V22.[address] [address] May, Supervision of other normal V22.1 ; screening for streptococcus B V28.6 ; Gestational thrombocytopenia 649.30 and Anemia affecting 648.[address] [address] May, [address] [address] May, Unspecified high-risk V23.9 ; Gestational thrombocytopenia 649.30 and Diabetes mellitus screening V77.1 [place] [id number] [place] [address] Apr, Supervision of other normal V22.1 ; Screening for diabetes mellitus V77.1 ; TDAP DX V06.1 ; Previous delivery, unspecified as to episode of care or not applicable 654.20 and Gestational thrombocytopenia 649.30 [place] [id number] [place] [address] March, Supervision of other normal V22.1 ; Gestational thrombocytopenia 649.30 and Previous delivery, unspecified as to episode of care or not applicable 654.20 [place] [id number] [place] [address] Feb, [address] [address] Feb, [facility] [place] [facility] [address] [facility] [id number] [place] [address] Jan, [facility] [place] [facility] [address] [facility] [id number] [place] [address] Jan, [facility] [place] [facility] [address] [facility] [id number] [place] [address] Jan, [facility] [place] [facility] [address] [facility] [id number] [place] [address] Jan, [facility] [place] [facility] [address] [facility] [id number] [place] [address] Jan, [facility] [place] [facility] [address] [facility] [id number] [place] [address] Dec, 2014 [facility] [place] [facility] [address] [place] [id number] [place] [address] Dec, 2014 [facility] [place] [facility] [address] [facility] [id number] [place] [address] Dec, 2014 [facility] [place] [facility] [address] [place] [id number] [place] [address] Dec, 2014 [facility] [place] [facility] [address] [facility] [id number] [place] [address] Dec, 2014 [facility] [place] [facility] [address] [place] [id number] [place] [address] Dec, 2014 [facility] [place] [facility] [address] [facility] [id number] [address] 20 Dec, 2014 [facility] [place] [facility] [address] [facility] [id number] [place] [address] Dec, 2014 [facility] [place] [facility] [address] [facility] [id number] [place] [address] Dec, 2014 [facility] [place] [facility] [address] [place] [id number] [place] [address] Dec, [facility] [address] [id number] [address] Dec, [facility] [address], [place] [address] Dec, [facility] [address], [place] [address] Dec, [facility] [address], [place] [address] Dec, [facility] [address], [place] [address] Nov, [facility] [address], [place] [address] Nov, [facility] [address], [place] [address] Nov, [facility] [address], [place] [address] Nov, [facility] [address] [place] [id number] [address] Nov, [facility] [address] [place] [id number] [address] Nov, [facility] [address] [place] [id number] [address] Nov, IMMUNIZATIONS No Known Immunizations SOCIAL HISTORY Never Assessed REASON FOR VISIT PLAN OF CARE VITAL SIGNS MEDICATIONS Unknown Medications RESULTS No Results PROCEDURES Procedure Date Ordered Result Body Site CHORIONIC GONADOTROPIN ASSAY Dec 02, 2014 VENIPUNCT, ROUTINE* Dec 02, 2014 INSTRUCTIONS MEDICATIONS ADMINISTERED No Known Medications MEDICAL (GENERAL) HISTORY Type Description Date Medical History Low white blood cells- Medical History high cholesterol Medical History S/P repeat low transverse C-sect ion Surgical History section x3 11/19/2012 Hospitalization History Childbirth
--- OUTSIDE RECORDS SUMMARY | 2023-08-07 11:02 | XMS REPORT ---
Author Author Rhoda HOLLINS Organization [facility] Address [address] [place] [address] Care Team Providers Care Medical Staff Specialist Name Role Phone ISSA HOLLINS Unavailable PROBLEMS Type Condition ICD9-CM Code PXE09-DG Code Onset Dates Condition Status SNOMED Code Problem S/P repeat low transverse Z98.89 Active 9567907 06 Problem Thrombocytopenia D69.6 Active 8233071 08 ALLERGIES Unknown Allergies SOCIAL HISTORY No smoking Hx information available PLAN OF CARE VITAL SIGNS MEDICATIONS Unknown Medications RESULTS No Results PROCEDURES No Known procedures IMMUNIZATIONS No Known Immunizations
[2023-08-07 11:33] LABS: HEMOGLOBIN 10.9 g/dL (11.5-16.0); MEAN CORPUSCULAR VOLUME 96 fL (80-99)
[2023-08-07 11:35] LABS: BASOPHILS % (AUTO) 0 % (0-10); EOSINOPHILS # (AUTO) 0.6 10^3/uL (0.0-0.3); EOSINOPHILS % (AUTO) 6 % (0-10); HEMATOCRIT 34 % (35-52); LYMPHOCYTES # (AUTO) 1.1 10^3/uL (1.0-4.0); LYMPHOCYTES % (AUTO) 12 % (12-44); MEAN CORPUSCULAR HEMOGLOBIN 30 pg (25-34); MEAN CORPUSCULAR HGB CONC 32 g/dL (32-36); MONOCYTES # (AUTO) 0.5 10^3/uL (0.0-1.0); MONOCYTES % (AUTO) 5 % (0-12); NEUTROPHILS # (AUTO) 6.8 10^3/uL (1.8-7.8); NEUTROPHILS % (AUTO) 74 % (42-75); WHITE BLOOD COUNT 9.1 10^3/uL (4.3-11.0)
[2023-08-07] MEDS ORDERED: LACTATED RINGERS 1,000 ML 1,000 ML IV ONE (11:37)
[2023-08-07 11:45] LABS: PLATELET COUNT 89 10^3/uL (130-400)
[2023-08-07] MEDS ORDERED: FAMOTIDINE INJ 20MG/2ML VIAL IV ONE (11:45)
[2023-08-07] MEDS ORDERED: METOCLOPRAMIDE INJ 10 MG/2 ML IV ONE (11:45)
[2023-08-07] MEDS ORDERED: CITRIC ACID/SODIUM CITRATE ORAL SOLN 30 ML PO ONE (11:45)
--- NOTE | 2023-08-07 12:00 | History & Physical-OB ---
OB - Chief Complaint & HPI Date/Time Date of Admission: Date of Admission: Aug 07, 2023 at 10:48 am Date seen by a Provider: Aug 07, 2023 Time Seen by a Provider: 11:55 Chief Complaint/History OB-Reason for Admission/Chief: Section Hx : 4 Hx Para: 3 Expected Date of Delivery: Aug 24, 2023 Gestational Age in Weeks: 37 Gestational Age in Days: 4 Indication for : desires repeat , other (gestational thrombocytopenia) Admission Nurse Assessment Rev: Yes History of Labs Laboratory Tests Test 08/07/23 11:22 Range/Units White Blood Count 9.1 4.3-11.0 10^3/uL Red Blood Count 3.58 L 3.80-5.11 10^6/uL Hemoglobin 10.9 L 11.5-16.0 g/dL Hematocrit 34 L 35-52 % Mean Corpuscular Volume 96 80-99 fL Mean Corpuscular Hemoglobin 30 25-34 pg Mean Corpuscular Hemoglobin Concent 32 32-36 g/dL Red Cell Distribution Width 19.2 H 10.0-14.5 % Platelet Count 89 L 130-400 10^3/uL Mean Platelet Volume 0.0 L 9.0-12.2 fL Immature Granulocyte % (Auto) 2 % Neutrophils (%) (Auto) 74 42-75 % Lymphocytes (%) (Auto) 12 12-44 % Monocytes (%) (Auto) 5 0-12 % Eosinophils (%) (Auto) 6 0-10 % Basophils (%) (Auto) 0 0-10 % Neutrophils # (Auto) 6.8 1.8-7.8 10^3/uL Lymphocytes # (Auto) 1.1 1.0-4.0 10^3/uL Monocytes # (Auto) 0.5 0.0-1.0 10^3/uL Eosinophils # (Auto) 0.6 H 0.0-0.3 10^3/uL Basophils # (Auto) 0.0 0.0-0.1 10^3/uL Immature Granulocyte # (Auto) 0.2 H 0.0-0.1 10^3/uL Percent Immature Platelet Fraction 19.2 H 0.0-7.6 % Allergies and Home Medications Allergies Coded Allergies: No Known Drug Allergies (Unverified , 3/5/19) Patient Home Medication List Home Medication List Reviewed: Yes Discontinued Medications Hydrocodone/Acetaminophen (Hydrocodone-Acetamin 5-325 mg) 1 Each Tablet, 1 TAB PO Q6H PRN for PAIN-MODERATE (5-7) Discontinued Reason: No Longer Taking Prescribed by: IRAIDA TRIVEDI on 02/22/22 1552 Ondansetron (Ondansetron Odt) 4 Mg Tab.rapdis, 4 MG PO Q6H PRN for NAUSEA/VOMITING Discontinued Reason: No Longer Taking Prescribed by: IRAIDA TRIVEDI on 02/22/22 1552 Sulfamethoxazole/Trimethoprim (Bactrim Ds Tablet) 1 Each Tablet, 1 EA PO BID WITH MEALS Discontinued Reason: No Longer Taking Prescribed by: ELGIN LONG on 02/22/22 1342 Sulfamethoxazole/Trimethoprim (Bactrim Ds Tablet) 1 Each Tablet, 1 EACH PO BID Discontinued Reason: No Longer Taking Prescribed by: IRAIDA TRIVEDI on 02/22/22 1542 OB - History Hx of Present Care: Yes Ultrasounds: Normal mid trimester US Obstetrical Complications: Other (gestational thrombocytopenia) Medical Complications: None Obstetrical History Hx Termination: No Hx Multiple Gestation: No Hx Stillbirth: No Hx Complication: Yes (low PLTS.) Hx Induced Hypertens: No Hx Maternal Gestational Diabet: No Delivery History Hx Section: Yes (X1 ) Hx Blood Disorders: Yes (LOW PLATELETS) Adverse Rxn to Tranfusion: No Patient Past Medical History n/a Social History/Family History 2nd Hand Smoke Exposure: No Immunizations First/Initial COVID19 Vaccine: NO Tetanus Booster (TDap): Less than 5yrs OB - Admission Exam Physical Exam HEENT: NCAT Heart: Rhythm Normal Lungs: Clear Abdomen: Gravid Extremities: Normal Reflexes: Normal Heart Rate: 130's Accelerations: Accelerations Present Decelerations: No Decelerations Short Term Variability: Present Rotary Surface Grinder Variability: Average (6-25) Contractions on Admission: 6-10 Minutes Apart Intensity: Mild Labs Laboratory Tests Test 08/07/23 11:22 Range/Units White Blood Count 9.1 4.3-11.0 10^3/uL Red Blood Count 3.58 L 3.80-5.11 10^6/uL Hemoglobin 10.9 L 11.5-16.0 g/dL Hematocrit 34 L 35-52 % Mean Corpuscular Volume 96 80-99 fL Mean Corpuscular Hemoglobin 30 25-34 pg Mean Corpuscular Hemoglobin Concent 32 32-36 g/dL Red Cell Distribution Width 19.2 H 10.0-14.5 % Platelet Count 89 L 130-400 10^3/uL Mean Platelet Volume 0.0 L 9.0-12.2 fL Immature Granulocyte % (Auto) 2 % Neutrophils (%) (Auto) 74 42-75 % Lymphocytes (%) (Auto) 12 12-44 % Monocytes (%) (Auto) 5 0-12 % Eosinophils (%) (Auto) 6 0-10 % Basophils (%) (Auto) 0 0-10 % Neutrophils # (Auto) 6.8 1.8-7.8 10^3/uL Lymphocytes # (Auto) 1.1 1.0-4.0 10^3/uL Monocytes # (Auto) 0.5 0.0-1.0 10^3/uL Eosinophils # (Auto) 0.6 H 0.0-0.3 10^3/uL Basophils # (Auto) 0.0 0.0-0.1 10^3/uL Immature Granulocyte # (Auto) 0.2 H 0.0-0.1 10^3/uL Percent Immature Platelet Fraction 19.2 H 0.0-7.6 % OB - Assessment/Plan/Diagnosis Assessment Assessment: section Admission Dx 32 yo @ 37 weeks Gestational thrombocytopenia Previous x 3 Admission Status: Inpatient Order (span 2 midnights) Reason for Inpatient Admission: RCS 37 weeks Plan Plan: Section EMMANUEL PECK DO Aug 07, 2023 12:00 pm
[2023-08-07] MEDS ORDERED: ONDANSETRON INJECTION 4 MG/2 ML (SDV) ONE (12:07)
[2023-08-07] MEDS ORDERED: OXYTOCIN DRIP PRE-MIX 1,000 ML IV ONE (12:07)
[2023-08-07] MEDS ORDERED: fentaNYL INJECTION 100 MCG/2 ML VIAL ONE (12:07)
[2023-08-07] MEDS ORDERED: NALOXONE 0.4 MG/ML 1 ML VIAL IV PRN (12:15)
[2023-08-07] MEDS ORDERED: OXYTOCIN DRIP PRE-MIX 500 ML IV SCH (12:15)
[2023-08-07] MEDS ORDERED: Tetanus/Diphtheria/Pertussis (Acell) ADULT Vaccine 0.5 ML IM SCH (12:15)
[2023-08-07] MEDS ORDERED: ONDANSETRON INJECTION 4 MG/2 ML (SDV) IVP PRN (12:15)
[2023-08-07] MEDS ORDERED: MEASLES, MUMPS, RUBELLA VACCINE (MMR) SC SCH (12:15)
[2023-08-07] MEDS ORDERED: ceFAZolin INJECTION 2,000 MG ONE (12:35)
[2023-08-07] MEDS ORDERED: PHENYLEPHRINE 100 MCG/ML 10 ML (ANESTHESIA) SYR ONE (12:35)
[2023-08-07] MEDS ORDERED: NS (IVPB) 50 ML 50 ML ONE (12:37)
[2023-08-07] MEDS ORDERED: BUPIVACAINE 0.25% 10 ML VIAL ONE (12:56)
[2023-08-07] MEDS: KETOROLAC INJ 30 MG/ML VIAL IV SCH ×2 (15:43→22:03)
[2023-08-07] MEDS: DOCUSATE SODIUM 100 MG CAPSULE PO SCH (22:02)
[2023-08-07] MEDS: CATHETER FLUSH 10 ML SYR IV SCH (22:03)
[2023-08-07] MEDS: HYDROcodone/ACETAMINOPHEN 5 MG/325 MG TABLET PO PRN (22:05)
--- NOTE | 2023-08-07 22:18 | OPERATIVE REPORT ---
DATE OF SERVICE: 08/07/2023 PREOPERATIVE DIAGNOSES: 1. A 32-year-old at 37 weeks' gestation. 2. Gestational thrombocytopenia. POSTOPERATIVE DIAGNOSES: 1. A 32-year-old at 37 weeks' gestation. 2. Gestational thrombocytopenia. PROCEDURE: Repeat low-transverse section. SURGEON: Zeyad Barrios DO. MANAGER SECURITY AND SAFETY: Dr. Melva Salinas who was necessary for manipulation and retraction throughout the procedure. ANESTHESIA: Spinal. ESTIMATED BLOOD LOSS: 500 mL. URINE OUTPUT: 200 mL clear at the end of the procedure. FLUIDS: 1900 mL lactated Ringer's solution. FINDINGS: A live male infant weighing 7 pounds 3 ounces, Apgars of 7 and 8. Grossly normal appearing uterus, bilateral tubes and ovaries. SPECIMEN SENT: Placenta. INDICATIONS FOR PROCEDURE: This 32-year-old female is the patient who was consulted to my care for repeat . In the finding of doing this, she was also found to have gestational thrombocytopenia with a platelet level down to 89,000. I discussed with the patient delivery at 37 weeks due to gestational thrombocytopenia and concerns for bleeding and risk of bleeding with spinal anesthesia. Risks of procedure was discussed with the patient in detail. After all of her questions were answered, she was agreeable to proceed. Consent was obtained. The patient was taken to the operating room. OPERATIVE REPORT IN DETAIL Once in the operating room, spinal analgesia was found to be adequate. She was placed in supine position with leftward tilt, prepped and draped in normal sterile fashion. A timeout was performed. Anesthesia was tested. I then made a Pfannenstiel skin incision with a knife and carried down to the underlying fascia using Bovie cautery. The fascial incision extended laterally using Bovie cautery. The superior aspect of fascial incision was then grasped with Gabriella clamps, tented up and dissected off the underlying rectus muscles. The inferior aspect of the fascial incision was then grasped with Gabriella clamps, tented up and dissected underlying rectus muscles. Rectus muscles were dissected down the midline sharply, which exposed the peritoneum, which I entered bluntly and extended using blunt traction. Pola ring retractor was placed in the peritoneal incision, which offers excellent lateral sidewall retraction. I identified lower uterine segment and was found to be thinned out. I made a low transverse incision to the vesicouterine peritoneum and bluntly dissected off the lower uterine segment, creating a bladder flap. I then proceeded with myotomy until membranes were visualized, at which point I extended the uterine incision laterally and superiorly using bandage scissors. Amniotomy was then performed using Allis clamp. Clear fluid was noted. Infant was found vertex presentation. With gentle fundal pressure, the infant's head was elevated up to the incision and was delivered through the incision. Nares and oropharynx were bulb suctioned. Anterior and posterior shoulders were delivered. was brought to the operative field where cords were clamped and cut and was handed off to waiting nurses in attendance. Cord blood was collected. Three-vessel cord with intact placenta was delivered spontaneously thereafter. IV Pitocin was initiated to facilitate uterine contraction. Uterine fundus confirmed by manual massage. The uterus was then exteriorized and cleared of all endometrial clots and debris. I then proceeded with closing the uterine incision using 0 Vicryl suture in a running locked fashion. Second layer of imbricating 0 Monocryl was placed. Excellent hemostasis was noted after doing this. I then placed the uterus back in the pelvis and copiously irrigated the pelvis using normal saline. Once again, there was no active bleeding noted from any of my dissection planes. I placed Interceed antiadhesive over my low transverse incision. I removed the Pola ring retractor and then proceeded with closing the peritoneum using 3-0 Vicryl suture in a running fashion. The rectus muscles were reapproximated using 3-0 Vicryl suture in interrupted fashion. The fascia was reapproximated using 0 Vicryl suture in a running fashion. Subcutaneous tissue was reapproximated with 3-0 plain interrupted subcutaneous stitch and skin was reapproximated using 4-0 Monocryl running subcuticular. Dermabond was applied to incision, sterile dressing with adhesed with white tape. The patient tolerated the procedure well and was taken to recovery area in stable condition. Lap and sponge counts were correct at the end of the procedure. Instrument counts were correct as well. Two grams of Ancef were given preoperatively for infection prophylaxis. Job ID: [id number] DocumentID: [id number] Dictated Date: 08/07/2023 13:18:24 Machinist Wood Date: 08/07/2023 22:15:00 Dictated By: DO BOB PLUMMER
[2023-08-08 00:38] VITALS: BP 88/49
[2023-08-08] MEDS: CATHETER FLUSH 10 ML SYR IV SCH ×2 (00:42→04:52)
[2023-08-08] MEDS: KETOROLAC INJ 30 MG/ML VIAL IV SCH ×3 (04:52→23:12)
[2023-08-08 05:18] VITALS: BP 88/54
[2023-08-08] MEDS: HYDROcodone/ACETAMINOPHEN 5 MG/325 MG TABLET PO PRN ×3 (05:21→17:55)
[2023-08-08 05:42] LABS: MEAN CORPUSCULAR VOLUME 94 fL (80-99)
[2023-08-08 05:44] LABS: BASOPHILS # (AUTO) 0.1 10^3/uL (0.0-0.1); BASOPHILS % (AUTO) 1 % (0-10); EOSINOPHILS # (AUTO) 0.6 10^3/uL (0.0-0.3); EOSINOPHILS % (AUTO) 6 % (0-10); HEMATOCRIT 31 % (35-52); HEMOGLOBIN 10.2 g/dL (11.5-16.0); LYMPHOCYTES # (AUTO) 1.5 10^3/uL (1.0-4.0); LYMPHOCYTES % (AUTO) 17 % (12-44); MEAN CORPUSCULAR HEMOGLOBIN 31 pg (25-34); MEAN CORPUSCULAR HGB CONC 33 g/dL (32-36); MEAN PLATELET VOLUME 13.3 fL (9.0-12.2); MONOCYTES # (AUTO) 0.5 10^3/uL (0.0-1.0); MONOCYTES % (AUTO) 6 % (0-12); NEUTROPHILS # (AUTO) 6.3 10^3/uL (1.8-7.8); NEUTROPHILS % (AUTO) 69 % (42-75); PLATELET COUNT 78 10^3/uL (130-400)
[2023-08-08 05:58] LABS: SMEAR SCAN COMMENT YES
--- NOTE | 2023-08-08 07:19 | Postpartum Progress Note ---
Note Note Day # 1 Subjective: Patient is without complaints. Ambulating, voiding. Tolerating a regular diet without nausea or vomiting. Normal lochia. Pain is well controlled with oral pain medications. Objective: Physical Exam: General - Alert and oriented, no apparent distress Abdomen - Soft, appropriately tender to palpation, non-distended, fundus firm at umbilicus Extremities - no edema, negative No's bilaterally Incision- c/d/i Assessment: POD 1 RLTCS Acute blood loss anemia Plan: Routine care. Encourage breast feeding. Encourage ambulation. Ferrous sulfate supplementation. Plan for discharge tomorrow Vitals - Labs Vital Signs - I&O Vital Signs Date Time Temp Pulse Resp B/P (MAP) Pulse Ox O2 Delivery O2 Flow Rate FiO2 08/08/23 05:18 36.4 62 18 88/54 (65) 97 Room Air 08/08/23 00:38 36.0 80 18 88/49 (62) 98 Room Air 08/07/23 20:00 36.0 66 18 94/61 (72) 98 Room Air 08/07/23 16:00 36.7 62 18 97/56 (70) 98 Room Air 08/07/23 14:30 Room Air 08/07/23 14:30 35.7 18 97/60 (72) 98 Room Air 08/07/23 14:15 35.7 18 99/60 (73) 98 Room Air 08/07/23 14:15 Room Air 08/07/23 14:00 Room Air 08/07/23 14:00 35.7 14 92/56 (68) 100 Room Air 08/07/23 13:45 36.0 18 97/67 (77) 98 Room Air 08/07/23 13:45 Room Air 08/07/23 13:30 35.5 12 94/72 (79) 99 Room Air 08/07/23 13:30 Room Air 08/07/23 11:30 36.4 81 18 98 Room Air 08/07/23 11:13 36.4 81 18 100/57 (71) 98 Room Air I & O 08/08/23 07:00 Output Total 350 ml Balance -350 ml Labs Laboratory Tests 08/07/23 11:22: White Blood Count 9.1, Red Blood Count 3.58L, Hemoglobin 10.9L, Hematocrit 34L, Mean Corpuscular Volume 96, Mean Corpuscular Hemoglobin 30, Mean Corpuscular Hemoglobin Concent 32, Red Cell Distribution Width 19.2H, Platelet Count 89L, Mean Platelet Volume 0.0L, Immature Granulocyte % (Auto) 2, Neutrophils (%) (Auto) 74, Lymphocytes (%) (Auto) 12, Monocytes (%) (Auto) 5, Eosinophils (%) (Auto) 6, Basophils (%) (Auto) 0, Neutrophils # (Auto) 6.8, Lymphocytes # (Auto) 1.1, Monocytes # (Auto) 0.5, Eosinophils # (Auto) 0.6H, Basophils # (Auto) 0.0, Immature Granulocyte # (Auto) 0.2H, Percent Immature Platelet Fraction 19.2H 08/08/23 05:15: White Blood Count 9.0, Red Blood Count 3.31L, Hemoglobin 10.2L, Hematocrit 31L, Mean Corpuscular Volume 94, Mean Corpuscular Hemoglobin 31, Mean Corpuscular Hemoglobin Concent 33, Red Cell Distribution Width 19.2H, Platelet Count 78L, Mean Platelet Volume 13.3H, Immature Granulocyte % (Auto) 1, Neutrophils (%) (Auto) 69, Lymphocytes (%) (Auto) 17, Monocytes (%) (Auto) 6, Eosinophils (%) (Auto) 6, Basophils (%) (Auto) 1, Neutrophils # (Auto) 6.3, Lymphocytes # (Auto) 1.5, Monocytes # (Auto) 0.5, Eosinophils # (Auto) 0.6H, Basophils # (Auto) 0.1, Immature Granulocyte # (Auto) 0.1, Percent Immature Platelet Fraction 19.4H, Smear Scan YES EMMANUEL PECK DO Aug 08, 2023 07:19
[2023-08-08] MEDS ORDERED: IBUP-844 PO (07:21)
[2023-08-08] MEDS ORDERED: DOCU100C37 PO (07:21)
[2023-08-08] MEDS ORDERED: ACHD5005 PO (07:21)
--- NOTE | 2023-08-08 07:21 | Discharge Inst-Women's Service ---
Discharge Inst-Women's Serv Depart Medication/Instructions New, Converted or Re-Newed RX: Transmitted to Pharmacy Problems Reviewed?: Yes Consults/Follow Up Additional Follow Up: Yes Orders/Referrals Dr. Barrios in 7-10 days and [facility] in 6 weeks Activity Activity: Activity as Tolerated Driving Instructions: No Driving for 1 Week NO SMOKING: NO SMOKING Nothing Inside Vagina: No Douching, No [place], No Tampons Diet Discharge Diet: No Restrictions Symptoms to Report to : Bleeding Excessive, Pain Increased, Fever Over 101 Degrees F, Vaginal Bleeding Increase, Questions/Concerns For Any Problems or Questions: Contact Your Physician Skin/Wound Care Infection Signs and Symptoms: Increased Redness, Foul Odor of Wound, Increased Drainage, Skin Itchy or Has a Rash, Increased Swelling, Temperature Above 101 F Operative Area Clean and Dry: Keep Incision Clean/Dry Stitches/[place]/Dermabond: Dermabond, Care of Stitches Bathing Instructions: EMMANUEL Choe DO Aug 08, 2023 07:21
[2023-08-08 09:30] VITALS: BP 86/50
[2023-08-08] MEDS: DOCUSATE SODIUM 100 MG CAPSULE PO SCH ×2 (09:35→21:51)
[2023-08-08 12:20] VITALS: BP 104/55
--- NOTE | 2023-08-08 13:33 | Anesthesia-Regional Post-Op ---
Regional Patient Condition Mental Status: Alert, Oriented x3 Circulation: Same as Pre-Op Headache: Absent Sensation: Full Recovery Motor Block: Absent Post Op Complications Complications None Follow Up Care/Instructions Patient Instructions None needed. Anesthesia/Patient Condition Patient is doing well, no complaints, stable vital signs, no apparent adverse anesthesia problems. No complications reported per nursing. VITALIY MCCRACKEN CRNA Aug 08, 2023 13:33
[2023-08-08 17:30] VITALS: BP 90/53
[2023-08-08] MEDS: IBUPROFEN 600 MG TABLET PO SCH (17:55)
[2023-08-09 00:05] VITALS: BP 89/53
[2023-08-09] MEDS: HYDROcodone/ACETAMINOPHEN 5 MG/325 MG TABLET PO PRN ×3 (00:07→12:40)
[2023-08-09] MEDS: IBUPROFEN 600 MG TABLET PO SCH ×3 (00:07→12:40)
[2023-08-09] MEDS: SIMETHICONE 80 MG CHEWABLE TABLET PO PRN ×2 (02:11→10:39)
[2023-08-09 06:00] VITALS: BP 90/50
--- NOTE | 2023-08-09 08:41 | Postpartum Progress Note ---
Note Note Day # 2 Subjective: Patient is without complaints. Ambulating, voiding. Tolerating a regular diet without nausea or vomiting. Normal lochia. Pain is well controlled with oral pain medications. Objective: Physical Exam: General - Alert and oriented, no apparent distress Abdomen - Soft, appropriately tender to palpation, non-distended, fundus firm at umbilicus Extremities - no edema, negative No's bilaterally Incision c/d/i Assessment: POD 2 RLTCS Limited pain control- abdominal binder given Plan: Routine care. Encourage breast feeding. Encourage ambulation. Ferrous sulfate supplementation. Plan for discharge today Vitals - Labs Vital Signs - I&O Vital Signs Date Time Temp Pulse Resp B/P (MAP) Pulse Ox O2 Delivery O2 Flow Rate FiO2 08/09/23 06:00 36.9 71 18 90/50 (63) 97 Room Air 08/09/23 00:05 36.5 83 20 89/53 (65) 96 Room Air 08/08/23 17:30 36.7 71 18 90/53 (65) 99 Room Air 08/08/23 12:20 36.9 79 18 104/55 (71) 98 Room Air 08/08/23 09:30 36.7 74 18 86/50 (62) 97 Room Air I & O 08/09/23 07:00 Intake Total 1500 ml Output Total 1150 ml Balance 350 ml EMMANUEL PECK DO Aug 09, 2023 08:41
[2023-08-09 10:30] VITALS: BP 92/55
[2023-08-09] MEDS: DOCUSATE SODIUM 100 MG CAPSULE PO SCH (10:34)
[2023-08-09 16:00] VITALS: BP 92/55
== END 2023-08-09 16:00 | disposition home or self-care (01) | DRG 787 ==
LOC: LDRP 10:48
PROVIDERS: ADMIT Obstetrics & Gynecology; ATTEND Obstetrics & Gynecology
PROC: 10D00Z1 Extraction of Products of Conception, Low, Open Approach (ICD-10-PCS; principal; 2023-08-07 12:27)
DX: O34.211 Maternal care for low transverse scar from previous cesarean delivery (principal); D62 Acute posthemorrhagic anemia; O99.12 Other diseases of the blood and blood-forming organs and certain disorders involving the immune mechanism complicating childbirth; D69.6 Thrombocytopenia, unspecified; Z3A.37 37 weeks gestation of pregnancy; Z37.0 Single live birth; O90.81 Anemia of the puerperium
CPT/HCPCS: 36415; 85025; 86850; 86900; 86901; 94664

== ENCOUNTER → 2023-08-17 | Outpatient (CLI) | payer OTHER ==
[~2023-08-17] MED LIST changes: +IBUP-844 PO
--- NOTE | 2023-08-17 11:02 | Diagnostic Imaging Report ---
PROCEDURE: US left lower extremity venous. TECHNIQUE: Multiple real-time grayscale images were obtained over the left lower extremity in various projections. Additional duplex Doppler and color Doppler images were also obtained. INDICATION: Left leg swelling. FINDINGS: The veins of the left leg have good color filling and compressibility. There is phasic flow and normal response to augmentation. IMPRESSION: Negative venous Doppler of the left leg. Dictated by: Dictated on workstation # [id number]
== END ==
LOC: RAD 10:14
PROVIDERS: ATTEND Nurse Practitioner Women's Health
DX: R60.0 Localized edema (principal)